=== PATIENT | female | born 1935 | race Caucasian/White ===

== ENCOUNTER 2017-01-09 14:54 | Inpatient (IN) | payer OTHER, MEDICARE ==
[~2017-01-09] VITALS: Ht 170.2 cm; Wt 87.5 kg
[~2017-01-09 14:54] MED LIST: ANASTROZOLE1 MG PO; BENICAR20 MG PO; COREG12.5 M1 PO; ELIQUIS5 MG PO; FUROSEMIDE40 M1 PO; GLIPIZIDE5 M1 PO; GLUCOPHAGE1000 M1 PO; LEVOXYL88 MCG PO; LIPITOR10 M1 PO
--- NOTE | 2017-01-09 15:00 | ED DYSPNEA/ASTHMA COMPLAINT ---
History of Present Illness General Chief Complaint: General Adult Stated Complaint: BIBA INCREASED WEAKNESS, DIFFICULTY BREATHING Source: patient, family Exam Limitations: no limitations Vital Signs & Intake/Output Vital Signs & Intake/Output Vital Signs Date Time Temp Pulse Resp B/P Pulse O2 O2 Flow FiO2 Ox Delivery Rate 01/11 2150 68 112/70 01/11 1625 97.4 70 20 102/70 99 Nasal 1.0L Cannula 01/11 1600 Nasal 2.0L Cannula 01/11 1404 Nasal 1.0L Cannula 01/11 1344 97.1 80 20 102/60 99 Nasal 1.0L Cannula 01/11 1023 69 104/60 01/11 0800 93 Nasal 1.0L Cannula 01/11 0800 97.0 69 17 102/50 96 Nasal 1.0L Cannula 01/11 0400 98 Nasal 1.0L Cannula 01/11 0000 97 Nasal 1.0L Cannula 01/11 0000 97.2 68 16 104/64 96 Nasal 1.0L Cannula ED Intake and Output 01/11 0000 01/10 1200 Intake Total 1140 360 Output Total 1100 1200 Balance 40 -840 Intake, IV 510 360 Intake, Oral 630 Number 0 Bowel Movements Output, Urine 1100 1200 Patient 264 lb Weight Allergies Coded Allergies: alendronate sodium (RASH 01/09/17) Reconcile Medications Apixaban (Eliquis) 5 MG TABLET 1 TAB PO BID A fibrillation (Reported) Atorvastatin Calcium (Lipitor) 10 MG TABLET 1 TAB PO DAILY CHOLESTEROL ( Reported) Calcium Carbonate/Vitamin D3 (Os-Uzair 500+D3 Caplet) 500 MG-200 TABLET 1 TAB PO DAILY SUPPLEMENT (Reported) Carvedilol (Coreg) 12.5 MG TABLET 1 TAB PO BID HEART/BP (Reported) Furosemide 40 MG TABLET 1 TAB PO BID DIURETIC (Reported) Levothyroxine Sodium (Levoxyl) 88 MCG TABLET 1 TAB PO DAILY AC THYROID ( Reported) Metformin HCl (Glucophage) 1,000 MG TABLET 1 TAB PO BID DM (Reported) Multivitamin (Multi-Day Vitamins) 1 EACH TABLET 1 TAB PO DAILY SUPPLEMENT ( Reported) Olmesartan Medoxomil (Benicar) 20 MG TABLET 1 TAB PO DAILY BP (Reported) Potassium Chloride 20 MEQ TAB.ER.PRT 1 TAB PO BID SUPPLEMENT (Reported) Triage Nurses Notes Reviewed? yes Onset: Gradual Duration: getting worse Timing: recent history Severity: moderate HPI: Patient is a 81-year-old female with a past medical history of type 2 diabetes, atrial fibrillation with current AICD placement, CHF, sleep apnea, hypertension, hyperlipidemia, renal insufficiency, cardiomyopathy, hypothyroidism, anemia, PE, DVT, breast cancer, obesity who presents emergency room with a one-week history of gradually worsening tired weakness fatigue fevers and chills and change in verbal medication. Patient denies any headache cough shortness of breath or pain jaw pain chest pain like swelling nausea vomiting abdominal pain hemoptysis Patient was brought in by ambulance from private residence ([facility]) Past History Travel History Traveled to [place] past 21 day No Medical History Any Pertinent Medical History? see below for history Other Medical Hx: type 2 diabetes, atrial fibrillation with current AICD placement, CHF, sleep apnea, hypertension, hyperlipidemia, renal insufficiency, cardiomyopathy, hypothyroidism, anemia, PE, DVT, breast cancer, obesity Pneumonia Vaccine: 07/23/06 Influenza Vaccine: 07/02/09 Surgical History Surgical History: non-contributory Psychosocial History Who do you live with Spouse What is your primary language Nigerien Family History Hx Contributory? No ([place]) Review of Systems Review of Systems Constitutional: Reports: see HPI, chills, malaise, weakness. EENTM: Reports: no symptoms. Respiratory: Reports: no symptoms. Cardiovascular: Reports: no symptoms. GI: Reports: no symptoms. Genitourinary: Reports: no symptoms. Musculoskeletal: Reports: no symptoms. Skin: Reports: no symptoms. Neurological/Psychological: Reports: no symptoms. Hematologic/Endocrine: Reports: no symptoms. Immunologic/Allergic: Reports: no symptoms. All Other Systems: Reviewed and Negative ([facility]) Physical Exam Physical Exam General Appearance: no apparent distress, alert, comfortable Respiratory: chest non-tender, no respiratory distress, quiet respiration, decreased breath sounds Comments: HEENT: Normal EENT exam, extraocular motion intact, no nystagmus. Pupils equally round and reactive to light and accommodation. Nose- CYANOTIC, LIPS CYANOTIC. External auditory canal and Tympanic membranes clear. Pharynx normal. No swelling or edema. Neck: Supple, no lymphadenopathy, normal range of motion without pain or tenderness Back:no CVA tenderness. NONTENDER Cardiovascular: Regular rate and rhythms no murmurs rubs or gallops, normal JVP Respiratory: Chest nontender. No respiratory distress.breath sounds clear to auscultation bilaterally Abdomen: Soft, nontender nondistended, no appreciable organomegaly. Normal bowel sounds. No ascites Extremity: Bilateral lower extremity edema, no calf tenderness to palpation, normal and equal pulses. FEET NOTED TO BE COLD, DERMATOMES INTACT, PEDAL PULSE PLUS 2 BRAWNY BROWN DISCOLORATION Neuro: Alert oriented x3, motor sensory normal, cranial nerves II through XII grossly intact. Skin: No appreciable rash on exposed skin, skin is warm and dry. Psych: Mood and affect is normal, memory and judgment is normal. Core Measures ACS in differential dx? No Severe Sepsis Present: Yes BC x2: Yes Lactic Acid x2: Yes IV ABX Broad Spectrum: Yes NS/LR Started: No (PT HAS HX OF CHF, LEG EDEMA) Septic Shock Present: No ([facility]) ED Sepsis Exam Date of Focused Sepsis Exam: 01/09/17 Time of Focused Sepsis Exam: 1832 Sepsis Cardiac Exam: Regular Rate/Rhythm Sepsis Resp Exam: CTA Sepsis Cap Refill Exam: <2 Sec Sepsis Peripheral Pulse Exam: Normal Sepsis Peripheral Pulse Location: Dorsalis Pedis Sepsis Skin Color Exam: Cyanotic Skin Temp/Moisture Exam: Cool/Dry ([facility]) Progress Differential Diagnosis: AMI, bronchitis, costochondritis, CHF, COPD, musculoskeletal pain, pericarditis, pulmonary embolism, pneumonia, pneumothorax, rib fracture, unstable angina, SEPSIS, SEVERE SEPSIS HYPOTHYROIDISM, PNA, ELECTROLYTE ABNORMALITY HYPOTHYROIDISM PE Plan of Care: Orders Procedure Date/time Status MAGNESIUM 01/12 0500 Active FIBRIN SPLIT PRODUCTS 01/12 0500 Active FIBRINOGEN LEVEL 01/12 0500 Active D-DIMER 01/12 0500 Active CBC WITHOUT DIFFERENTIAL 01/12 0500 Active BASIC ELECTROLYTES PLUS BUN&CR 01/12 0500 Active Consistent Carbohydrate 3 01/11 L Active Transfer Disposition 01/11 1547 Active Transfer patient to 01/11 1020 Active Gandhi, Insertion/Removal/Asses 01/11 0833 Active Fluoroscopic Eval Swallowing 01/11 UNK Complete OXYGEN SETUP (GEN) 01/11 UNK Complete Therapeutic Activities 01/11 UNK Complete Therapeutic Exercise 01/11 UNK Complete Transfer patient to 01/11 UNK Active Discontinue Telemetry/Monitor 01/11 UNK Active Current Medications Sig/Stefanie Start time Last Medication Dose Stop Time Status Admin Insulin Aspart 0 AT BEDTIME 01/10 2200 AC (NovoLOG) Laboratory Tests 01/11/17 0505: Anion Gap 8, Estimated GFR 48 L, Glucose 79, Calcium 9.8, Phosphorus 4.4, Magnesium 1.8, Total Bilirubin 0.5, AST 29, ALT 50, Albumin 3.4 L, PT 16.2 H, INR 1.55 H, Fibrinogen Activity 185 L, Fibrin Degrad Products >10 but < 40 ug/ ml H, D-Dimer 285 H, CBC w Diff MAN DIFF ORDERED, RBC 3.81 L, MCV 94.0, MCH 30.6, RDW 16.0 H, MPV 12.8 H, Gran % 67.6, Lymphocytes % 16.0 L, Monocytes % 15.4 H, Eosinophils % 0.7, Basophils % 0.3, Absolute Granulocytes 2.7, Segmented Neutrophils 71, Absolute Lymphocytes 0.6 L, Lymphocytes 13 L, Monocytes 15 H, Absolute Monocytes 0.6, Eosinophils 1, Absolute Eosinophils 0, Absolute Basophils 0, Nucleated RBCs 5 H, Platelet Estimate DECREASED, Polychromasia 1+, Hypochromic-Microcytic 1+, Poikilocytosis 1+, Basophilic Stippling SLIGHT, Ovalocytes 1+, Elliptocytes FEW, PUBS MCHC 32.6 L, Fld Total RBCs Counted 100 Initially patient has on physical exam findings no concern of neurological deficit or stroke NIH STROKE SCALE 0 Patient was alert and oriented 4 Patient did noted to have profound hypothermia which a bear hugger was immediately placed. Patient did have minimal improvement of temperature Patient initially was given broad-spectrum antibiotics There was significant hesitancy of IV fluid resuscitation for concerns of sepsis for consideration of patient's past medical history of CHF in which patient was given 1 L of fluid 500 an hour Patient had unremarkable ABG imaging urinalysis which there is no source of patient's hypothermia CT SCAN WAS RESULTED SHOWING CONCERN FOR PNA. (LUDMILA SANDRA,[facility]) Diagnostic Imaging: Viewed by Me: Radiology Read. Radiology Impression: no acute abnormality, no fracture Initial ED EK BPM VENTRICULAR PACED RHYTHM Prior EKG: unchanged Comments: PATIENT: KEHINDE BISHOP PRESENT AGE: 81 PATIENT ACCOUNT NO: [id number] : 34 LOCATION: ER ORDERING PHYSICIAN: [facility] SERVICE DATE: 01/09/17 EXAM TYPE: CAT - CT ABD & PELVIS W IV CONTRAST EXAMINATION: CT ABDOMEN AND PELVIS WITH CONTRAST CLINICAL INFORMATION: Abdominal pain. Hypoxia. COMPARISON: None. TECHNIQUE: Contiguous axial thin section helical images of the abdomen and pelvis were performed following the administration of 95 mL of intravenous Optiray 320. The data set was reformatted in the coronal and sagittal planes and reviewed on an independent workstation. DLP: 1292 mGy-cm. FINDINGS: There is right middle and lower lobe airspace disease concerning for pneumonia. The heart is enlarged. The liver is of normal size and diffuse decreased attenuation without focal lesions nor intrahepatic biliary ductal dilation. A normal gallbladder is identified. There is no wall thickening or discernible pericholecystic fluid. The spleen, pancreas, adrenal glands are unremarkable. Both kidneys are of normal size and attenuation without hydronephrosis or nephrolithiasis. Following the administration of IV contrast, prompt symmetric nephrograms are displayed. There is a vrzlf-bs-bljcacul amount of free fluid within the abdomen.. There is neither mesenteric nor retroperitoneal lymphadenopathy. An IVC filter is in place. There is sigmoid diverticulosis without evidence of diverticulitis. Otherwise, unremarkable unopacified loops of small and large bowel are identified. There is a ixkcr-vp-nnjnirro amount of pelvic free fluid. The urinary bladder is unremarkable. There is neither pelvic nor inguinal lymphadenopathy. Bone windows: There is a compression fracture at L5 with evidence of prior vertebroplasty. The lumbar vertebra are in normal alignment. There is a T6 vertebral compression fracture. IMPRESSION: Sigmoid diverticulosis without evidence of diverticulitis. Wbuxl-fk-fzlpxziw amount of free fluid within the abdomen and pelvis. Right middle and lower lobe groundglass opacification concerning for pneumonia. Recommendation is for a followup chest series to be obtained following treatment and/or resolution of symptoms to assure resolution of this appearance. DICTATED BY: SYBIL BURDICK MD DATE/TIME DICTATED:01/09/171931 DIRECTOR CARD:DELORIS DATE/TIME TRANSCRIBED:01/09/171931 PATIENT: KEHINDE BISHOP PRESENT AGE: 81 PATIENT ACCOUNT NO: [id number] : 34 LOCATION: [facility] ORDERING PHYSICIAN: [facility]DRA SERVICE DATE: 01/09/17 EXAM TYPE: CAT - CTA CHEST-PULMONARY EMBOLISM EXAMINATION: CT PULMONARY EMBOLISM STUDY CLINICAL INFORMATION: Hypoxia. COMPARISON: 01/20/2015.. TECHNIQUE: Contiguous helical images of the chest were obtained following the administration of IV contrast. Multiplanar reconstructions were performed. MIPS were obtained and reviewed. DLP: 1794 mGy-cm. CONTRAST: 95 mL of Optiray 350 were administered without incident. FINDINGS: The heart is enlarged. There is a small pericardial effusion within the superior pericardial recess. The great vessels are unremarkable. Specifically, there are no pulmonary arterial filling defects. There are no chest wall masses. There is patchy groundglass opacification within the right middle lobe. There is also patchy right lower lobe airspace disease. The upper abdomen is evaluated on the same day abdominal and pelvic CT. There is a midthoracic spine which 8 vertebral body compression fracture. IMPRESSION: No CT evidence for pulmonary embolism. Cardiomegaly without evidence of vascular congestion. Right middle and lower lobe groundglass opacification concerning for developing pneumonia. Recommendation is for a followup chest series to be obtained following treatment and/or resolution of symptoms to assure resolution of this appearance. Please refer to the same day abdominal and pelvic CT report for evaluation of the abdomen. PATIENT: KEHINDE BISHOP PRESENT AGE: 81 PATIENT ACCOUNT NO: [id number] : 34 LOCATION: ER ORDERING PHYSICIAN: [facility]DRA SERVICE DATE: 01/09/17 EXAM TYPE: RAD - XRY-PORTABLE CHEST XRAY EXAMINATION: XR PORTABLE CHEST CLINICAL INFORMATION: Change in mental status. COMPARISON: Chest radiograph dated 01/20/2015. TECHNIQUE: Portable AP view of the chest was obtained. FINDINGS: There are right and left chest wall cardiac generators. Associated leads appear stable in position. There is moderate cardiomegaly, unchanged. There is uncoiling of the thoracic aorta. There is no pneumonia, pneumothorax or large pleural effusion. IMPRESSION: Moderate cardiomegaly. No pneumonia, pneumothorax or pleural effusion. DICTATED BY: OLEG WAGGONER MD DATE/TIME DICTATED:01/09/171552 DIRECTOR CARD:DELORIS PATIENT: KEHINDE BISHOP PRESENT AGE: 81 PATIENT ACCOUNT NO: [id number] : 34 LOCATION: ER ORDERING PHYSICIAN: [facility] SERVICE DATE: 01/09/17160 EXAM TYPE: CAT - CT HEAD WO IV CONTRAST EXAMINATION: CT HEAD WITHOUT CONTRAST CLINICAL INFORMATION: Altered mental status, slurred speech COMPARISON: None TECHNIQUE: Contiguous axial imaging was performed from the skull base to vertex without intravenous administration of contrast. No midline shift. There is no mass effect. No hemorrhage. Basal cisterns appear patent. The posterior fossa risk grossly within normal limits. No extra-axial collection. There is some probable scattered areas of white matter ischemic change. Some limitation from motion here. IMPRESSION: Limitation from motion. Given this there is no midline shift or mass effect or hemorrhage. Some atrophy impression probable chronic White matter ischemic changes. Vascular calcifications are noted.. If further evaluation is warranted recommend diffusion MR DICTATED BY: LULA PALMA MD ([place] [place]) Departure Departure Disposition: STILL A PATIENT Condition: Critical Clinical Impression Primary Impression: Sepsis Secondary Impressions: Hypothermia, Pneumonia Referrals: Salma MENDOSA MD (PCP/Family) Departure Forms: Customer Survey General Discharge Information Admission Note Spoke With: CURRY DELAROSA MD Documentation of Exam: Documentation of any treatments & extenuating circumstances including Concerns Regarding Discharge (functional status, medication knowledge or non-compliance, living conditions, etc.) that warrant an admission rather than observation: [ Patient requires ICU admission for concerns of hypothermia and sepsis. Patient requires IV antibiotics broad-spectrum, repeat labs, blood culture and urine culture currently pending. Outpatient treatment at this time due to critical findings would be medically harmful] ([facility]) PA/MANAGER OPERATIONS AND PROCUREMENT Co-Sign Statement Statement: ED Attending supervision documentation- [X] I saw and evaluated the patient. I have also reviewed all the pertinent lab results and diagnostic results. I agree with the findings and the plan of care as documented in the PA's/MANAGER OPERATIONS AND PROCUREMENT's documentation. [X] I have reviewed the ED Record and agree with the PA's/MANAGER OPERATIONS AND PROCUREMENT's documentation. [] Additions or exceptions (if any) to the PAs/MANAGER OPERATIONS AND PROCUREMENT's note and plan are summarized below: [Patient lives at home alone. Patient presents with increasing weakness to the point that she could not get off of her toilet today. Patient states that she has been gaining weight without wanting to recently. Patient denies any dyspnea on exertion or orthopnea. There is no chest pain or palpitations. There is no anorexia. No nausea or vomiting. Patient's son brought her in for evaluation. Upon presentation to the emergency department patient rectal temp was 88. Patient was placed on the bear hugger. Patient lips and nose appear cyanotic. No evidence of cellulitis. Her lungs are clear to auscultation. Cardiac exam shows no murmur. Her abdomen is soft and nontender with normal bowel sounds. Patient will be admitted to intensive care unit for presumed sepsis.] (ELIZABETH ANSARI,CHEPE [place]aly) Critical Care Note Critical Care Note Critical Care Time: 30-74 min ([facility]UD[facility]ILA [facility]DRA,[place]) ARTERIAL BLOOD GAS (GEN) 01/09 1610 Complete SERUM OSMOLALITY 01/09 1600 Complete MAGNESIUM 01/09 1600 Complete GLYCOSYLATED HGB 01/09 1600 Complete CORTISOL PM 01/09 1600 Complete CREATINE PHOSPHOKINASE 01/09 1600 Complete B-TYPE NATRIURETIC PEP (BNP) 01/09 1600 Complete URINE OSMOLALITY 01/09 1537 Complete URINE LYTES, SPOT 01/09 1537 Complete Telemetry/Sash Finisher 01/09 1528 Active CULTURE,URINE 01/09 1528 Active STREP PNEUMO URINARY ANTIGEN 01/09 1528 Complete LEGIONELLA URINARY ANTIGEN 01/09 1528 Complete BLOOD CULTURE 01/09 1528 Active URINALYSIS 01/09 1528 Complete THYROID STIMULATING HORMONE 01/09 1528 Complete TROPONIN LEVEL 01/09 1528 Complete T3 UPTAKE (THYROXINE BIND CAP) 01/09 1528 Complete AMMONIA 01/09 1528 Complete LACTIC ACID 01/09 1528 Complete FREE T4 01/09 1528 Complete COMPREHENSIVE METABOLIC PANEL 01/09 1528 Complete CBC WITHOUT DIFFERENTIAL 01/09 1528 Complete ACETONE 01/09 1528 Complete EKG 01/09 1455 Active OXYGEN SETUP CHG 01/09 UNK Complete OXYGEN 01/09 UNK Complete OXYGEN TRANSPORT 01/09 UNK Complete Saline Lock 01/09 UNK Active Pathway - chart 01/09 UNK Active House Staff 01/09 UNK Active Lab Add-on Test 01/09 UNK Active Weight 01/09 UNK Active VTE Mechanical Prophylaxis 01/09 UNK Active Vital Signs 01/09 UNK Active Telemetry/Sash Finisher 01/09 UNK Complete Precautions 01/09 UNK Active Intake & Output 01/09 UNK Active FingerStick- Glucose 01/09 UNK Active PHYSICIAN CONSULT 01/09 UNK Active CASE MANAGEMENT CONSULT 01/09 UNK Active Current Medications Sig/Stefanie Start time Last Medication Dose Stop Time Status Admin Atorvastatin Calcium 10 MG 1700 01/10 1700 AC (Lipitor) Laboratory Tests 01/10/17 1201: Sodium Pending, Potassium Pending, Chloride Pending, Carbon Dioxide Pending, Anion Gap Pending, BUN Pending, Creatinine Pending, Glucose Pending, Calcium Pending, Phosphorus Pending, Magnesium Pending, Total Bilirubin Pending, AST Pending, ALT Pending, Albumin Pending 01/10/17 0540: CBC w Diff MAN DIFF ORDERED, RBC 3.69 L, MCV 94.3, MCH 30.8, RDW 15.4 H, MPV 11.4 H, Gran % 77.0 H, Lymphocytes % 8.3 L, Monocytes % 13.6 H, Eosinophils % 0.5, Basophils % 0.6, Absolute Granulocytes 3.1, Segmented Neutrophils 78 H, Absolute Lymphocytes 0.3 L, Lymphocytes 10 L, Monocytes 12 H, Absolute Monocytes 0.5, Absolute Eosinophils 0, Absolute Basophils 0, Nucleated RBCs 3 H , Platelet Estimate DECREASED, Polychromasia 1+, Hypochromic-Microcytic 1+, Poikilocytosis 1+, Basophilic Stippling 1+, Ovalocytes 1+, Elliptocytes FEW, PUBS MCHC 32.6 L, Fld Total RBCs Counted 100 01/10/17 0450: Magnesium 1.6, Troponin I 0.03, Triglycerides 65, Cholesterol 130, LDL Cholesterol, Calc 34 L, HDL Cholesterol 83 H, Cholesterol/HDL Ratio 2, Cortisol AM Sample 27.3 H, PT 15.6 H, INR 1.49 H, Fibrinogen Activity 182 L, Fibrin Degrad Products >10 but < 40 ug/ml H, D-Dimer 507 H 01/09/17 2240: Anion Gap 10, Estimated GFR 48 L, Glucose 125 H, Calcium 10.6 H, Phosphorus 4.1, Magnesium 1.3 L, Total Bilirubin 0.7, AST 34, ALT 55 H, Troponin I 0.03, Albumin 3.8, PT 16.6 H, INR 1.59 H, APTT 38 H, Fibrinogen Activity 186 L, Fibrin Degrad Products >10 but < 40 ug/ml H, D-Dimer 540 H, CBC w Diff NO MAN DIFF REQ, RBC 3.85 L, MCV 93.7, MCH 30.3, RDW 16.3 H, MPV 12.2 H, Gran % 83.6 H, Lymphocytes % 6.9 L, Monocytes % 9.1, Eosinophils % 0.1, Basophils % 0.3, Absolute Granulocytes 3.8, Absolute Lymphocytes 0.3 L, Absolute Monocytes 0.4, Absolute Eosinophils 0, Absolute Basophils 0, PUBS MCHC 32.3 L 01/09/171957: Lactic Acid 1.5 01/09/17 1615: pH 7.37, pCO2 40, pO2 49 *L, HCO3 25, ABG O2 Sat (Measured) 92.0 L, P-50 (Temp Corrected) Y, Carboxyhemoglobin 0.5 L, O2 Concentration % R/A, Temperature 88.3 L, Phlebotomy Draw Site RIGHT RADIAL 01/09/17 1600: Anion Gap 10, Estimated GFR 48 L, BUN/Creatinine Ratio 41.8 H, Glucose 142 H, Hemoglobin A1c 6.0 H, Serum Osmolality 290, Lactic Acid 1.9, Calcium 10.9 H, Magnesium 1.2 L, Total Bilirubin 0.7, AST 39 H, ALT 58 H, Alkaline Phosphatase 112, Ammonia 11, Creatine Kinase 56, Troponin I 0.02, Pro-B- Natriuretic Pept 2220 H, Total Protein 6.6, Albumin 4.0, Globulin 2.6, Albumin/ Globulin Ratio 1.5, TSH 2.490, Free T4 1.89, Thyroxine Binding Indx 45.9 H, Cortisol PM Sample 30.9 H, CBC w Diff NO MAN DIFF REQ, RBC 4.11 L, MCV 92.1, MCH 31.0, RDW 15.8 H, MPV 13.0 H, Gran % 86.6 H, Lymphocytes % 5.9 L, Monocytes % 7.4, Eosinophils % 0, Basophils % 0.1, Absolute Granulocytes 4.0, Absolute Lymphocytes 0.3 L, Absolute Monocytes 0.3, Absolute Eosinophils 0, Absolute Basophils 0, PUBS MCHC 33.7, Acetone Level NEGATIVE 01/09/17 153: Urine Color YEL, Urine Clarity CLEAR, Urine pH 6.0, Ur Specific [place] 1.015, Urine Protein NEG, Urine Ketones NEG, Urine Nitrite NEG, Urine Bilirubin NEG, Urine Urobilinogen 0.2, Ur Leukocyte Esterase NEG, Ur Microscopic EXAM NOT REQUIRED, Urine Hemoglobin NEG, Urine Glucose NEG 01/09/17 153: Urine Osmolality 348, Ur Random Creatinine 54.9, Ur Random Sodium 16 L, Ur Random Potassium 62.6, Fraction Sodium Excret 3.0 H 01/09/17 1531: Magnesium Cancelled, Xgz-R-Dvyyaxgstym Pept Cancelled Microbiology 03/20 2240 UPPER RESP: Surveillance Culture - RECD 01/10 2240 GI: Surveillance Culture - RECD 01/10 2024 NASOPHARYN: Influenza Virus A & B Rapid Smear - COLB 01/09 2014 LOWER RESP: Respiratory Culture - COLB 01/09 2014 LOWER RESP: Gram Stain - COLB 01/09 2014 STOOL: Stool Culture - COLB 01/09 2014 BLOOD: Blood Culture - CAN Cancelled: Cancelled via OE: Per MD Decision 01/09 1608 BLOOD: Blood Culture - RES 01/09 1600 BLOOD: Blood Culture - RES 01/09 1537 URINE ROUT: Urine Culture - RES 01/09 1528 URINE ROUT: Legionella Antigen - COMP 01/09 152 URINE ROUT: Streptococcus pneumoniae Antigen (M - COMP Initially patient has on physical exam findings no concern of neurological deficit or stroke NIH STROKE SCALE 0 Patient was alert and oriented 4 Patient did noted to have profound hypothermia which a bear hugger was immediately placed. Patient did have minimal improvement of temperature Patient initially was given broad-spectrum antibiotics There was significant hesitancy of IV fluid resuscitation for concerns of sepsis for consideration of patient's past medical history of CHF in which patient was given 1 L of fluid 500 an hour Patient had unremarkable ABG imaging urinalysis which there is no source of patient's hypothermia CT SCAN WAS RESULTED SHOWING CONCERN FOR PNA. ([facility]) Departure Departure Disposition: STILL A PATIENT Condition: Critical Clinical Impression Primary Impression: Sepsis Secondary Impressions: Hypothermia, Pneumonia Referrals: Salma MENDOSA MD (PCP/Family) Departure Forms: Customer Survey General Discharge Information Admission Note Spoke With: CURRY DELAROSA MD Documentation of Exam: Documentation of any treatments & extenuating circumstances including Concerns Regarding Discharge (functional status, medication knowledge or non-compliance, living conditions, etc.) that warrant an admission rather than observation: [ Patient requires ICU admission for concerns of hypothermia and sepsis. Patient requires IV antibiotics broad-spectrum, repeat labs, blood culture and urine culture currently pending. Outpatient treatment at this time due to critical findings would be medically harmful] ([place]) PA/MANAGER OPERATIONS AND PROCUREMENT Co-Sign Statement Statement: ED Attending supervision documentation- [X] I saw and evaluated the patient. I have also reviewed all the pertinent lab results and diagnostic results. I agree with the findings and the plan of care as documented in the PA's/MANAGER OPERATIONS AND PROCUREMENT's documentation. [X] I have reviewed the ED Record and agree with the PA's/MANAGER OPERATIONS AND PROCUREMENT's documentation. [] Additions or exceptions (if any) to the PAs/MANAGER OPERATIONS AND PROCUREMENT's note and plan are summarized below: [Patient lives at home alone. Patient presents with increasing weakness to the point that she could not get off of her toilet today. Patient states that she has been gaining weight without wanting to recently. Patient denies any dyspnea on exertion or orthopnea. There is no chest pain or palpitations. There is no anorexia. No nausea or vomiting. Patient's son brought her in for evaluation. Upon presentation to the emergency department patient rectal temp was 88. Patient was placed on the bear hugger. Patient lips and nose appear cyanotic. No evidence of cellulitis. Her lungs are clear to auscultation. Cardiac exam shows no murmur. Her abdomen is soft and nontender with normal bowel sounds. Patient will be admitted to intensive care unit for presumed sepsis.] (ELIZABETH ANSARI,CHEPE Healy) Critical Care Note Critical Care Note Critical Care Time: 30-74 min ([place])
--- NOTE | 2017-01-09 15:22 | NUR ---
PT BIBA FROM HOME FOR INCREASED WEAKNESS, INCREASED WEIGHT GAIN OF 30 POUNDS OVER THE LAST FEW DAYS. PT ARRIVES WITH POOR CIRCULATION, ESPECIALLY TO FINGERS, TOES AND TIP OF NOSE AND LIPS NOTED TO HAVE BLUE TINGE (?CHRONIC PER EMS.) NO ACUTE DISTRESS NOTED. PT A/O X 4. 100% ON RA. UNABLE TO OBTAIN TEMPERATURE VIA TYMPANIC, TEMPORAL ARTERY OR RECTAL THERMOMETERS. PT PLACED ON BEAR HUGGER IMMEDIATELY.
--- NOTE | 2017-01-09 15:30 | NUR ---
TEMPERATURE PROBE LOZANO PLACED AT THIS TIME. PT PLACED ON BEAR HUGGER. TEMPERATURE 84.5 AT THIS TIME. LOZANO OUTPUT 200CC DARK URINE AT THIS TIME. SPECIMEN SENT TO LAB
--- NOTE | 2017-01-09 15:40 | NUR ---
XRAY AT BEDSIDE. PT REMAINS ALERT AND ORIENTED BUT SLOW TO RESPOND TO QUESTIONS, PT ANSWERES QUESTIONS CORRECTLY. SON AT BEDSIDE. PER SON, PT HAS BEEN GETTING PROGRESSIVELY WEAK OVER THE PAST FEW WEEKS. STATES SHE TAKES LASIX DAILY BUT HAS BEEN HAVING TROUBLE GETTING UP FROM THE TOILET. PER SON PT HAS HAVE SIGNIFICANT WEIGHT GAIN OVER THE LAST FEW WEEKS. PER SON MOTHER HAS HAD LOOSE STOOL FOR "A COUPLE DAYS" PT DENIES PAIN ANYWHERE. DENIES SOB. RA SATS 96%. PACED RHYTHM ON MONITOR. AT BEDSIDE FOR [facility]INO
[2017-01-09] MEDS ORDERED: BENICAR20 M1 PO (15:49)
[2017-01-09] MEDS ORDERED: OS-CAL 500+D31 EAC1 PO (15:50)
[2017-01-09] MEDS ORDERED: GLIPIZIDE5 M2 PO (15:52)
[2017-01-09] MEDS ORDERED: MULTI-DAY VITA1 EACH PO (15:53)
[2017-01-09] MEDS ORDERED: POTASSIUM CHLO20 ME2 PO (15:54)
--- NOTE | 2017-01-09 15:59 | RADIOLOGY REPORT ---
EXAMINATION: XR PORTABLE CHEST CLINICAL INFORMATION: Change in mental status. COMPARISON: Chest radiograph dated 01/20/2015. TECHNIQUE: Portable AP view of the chest was obtained. FINDINGS: There are right and left chest wall cardiac generators. Associated leads appear stable in position. There is moderate cardiomegaly, unchanged. There is uncoiling of the thoracic aorta. There is no pneumonia, pneumothorax or large pleural effusion. IMPRESSION: Moderate cardiomegaly. No pneumonia, pneumothorax or pleural effusion.
--- NOTE | 2017-01-09 16:08 | NUR ---
LAB DRAWN AND SENT
--- NOTE | 2017-01-09 16:16 | NUR ---
RESP AT BEDSIDE FOR ABG
[2017-01-09 16:21] LABS: ABSOLUTE BASOPHIL COUNT 0 /CUMM (0.0-0.2); ABSOLUTE EOSINOPHIL COUNT 0 /CUMM (0.0-0.7); ABSOLUTE LYMPH COUNT 0.3 /CUMM (1.2-3.4); ABSOLUTE MONOCYTE COUNT 0.3 /CUMM (0.10-0.60); BASOPHIL % 0.1 % (0.0-2.0); EOSINOPHIL % 0 % (0-5); HEMATOCRIT 37.9 % (37-47); MEAN CORPUSCULAR HGB CONC 33.7 G/DL (33.0-37.0); MEAN CORPUSCULAR VOLUME 92.1 FL (81.0-99.0); RBC DISTRIBUTION WIDTH 15.8 % (11.5-14.5); RED BLOOD CELL CT 4.11 /CUMM (4.20-5.40); WHITE BLOOD CELL COUNT 4.6 /CUMM (4.8-10.8)
[2017-01-09 16:28] LABS: GRANULOCYTE % 86.6 % (42.2-75.2); PLATELET COUNT 58 /CUMM (130-400)
--- NOTE | 2017-01-09 16:32 | NUR ---
IV UNASYN INFUSING PER ODER AT THIS TIME.
--- NOTE | 2017-01-09 16:50 | NUR ---
PT TO CT SCAN AT THIS TIME.
--- NOTE | 2017-01-09 17:10 | NUR ---
PT BACK FROM FROM CT SCAN AT THIS TIME. PT PLACED BACK ON MONITOR. TEMP 89.1 AT THIS TIME.
--- NOTE | 2017-01-09 17:22 | CT SCAN REPORT ---
EXAMINATION: CT HEAD WITHOUT CONTRAST CLINICAL INFORMATION: Altered mental status, slurred speech COMPARISON: None TECHNIQUE: Contiguous axial imaging was performed from the skull base to vertex without intravenous administration of contrast. No midline shift. There is no mass effect. No hemorrhage. Basal cisterns appear patent. The posterior fossa risk grossly within normal limits. No extra-axial collection. There is some probable scattered areas of white matter ischemic change. Some limitation from motion here. IMPRESSION: Limitation from motion. Given this there is no midline shift or mass effect or hemorrhage. Some atrophy impression probable chronic White matter ischemic changes. Vascular calcifications are noted.. If further evaluation is warranted recommend diffusion MR
--- NOTE | 2017-01-09 18:05 | NUR ---
PT RESTING ON STRECHER, REMAINS ON BEAR HUGGER AT THIS TIME. TEMP 90.0 AT THIS TIME VIA LOZANO PROBE. PT REMAINS ALERT AND ORIENTED. SON REMAINS AT BEDSIDE.
--- NOTE | 2017-01-09 18:28 | NUR ---
LAB DRAWN AND SENT.
--- NOTE | 2017-01-09 18:53 | NUR ---
PT TO AND FROM CT SCAN AT THIS TIME WITH THIS RN. PT ARRIVES BACK IN ROOM ADN PALCED ON MONITOR. PT REMAINS ALERT AND ORIENTED X3. TEMP 90.7 AT THIS TIME.
--- NOTE | 2017-01-09 19:05 | NUR ---
ICU RESIDENTS IN ROOM FOR EVAL
--- NOTE | 2017-01-09 19:30 | NUR ---
HOUSE STAFF AT BEDSIDE
--- NOTE | 2017-01-09 19:35 | CT SCAN REPORT ---
EXAMINATION: CT PULMONARY EMBOLISM STUDY CLINICAL INFORMATION: Hypoxia. COMPARISON: 01/20/2015.. TECHNIQUE: Contiguous helical images of the chest were obtained following the administration of IV contrast. Multiplanar reconstructions were performed. MIPS were obtained and reviewed. DLP: 1794 mGy-cm. CONTRAST: 95 mL of Optiray 350 were administered without incident. FINDINGS: The heart is enlarged. There is a small pericardial effusion within the superior pericardial recess. The great vessels are unremarkable. Specifically, there are no pulmonary arterial filling defects. There are no chest wall masses. There is patchy groundglass opacification within the right middle lobe. There is also patchy right lower lobe airspace disease. The upper abdomen is evaluated on the same day abdominal and pelvic CT. There is a midthoracic spine which 8 vertebral body compression fracture. IMPRESSION: No CT evidence for pulmonary embolism. Cardiomegaly without evidence of vascular congestion. Right middle and lower lobe groundglass opacification concerning for developing pneumonia. Recommendation is for a followup chest series to be obtained following treatment and/or resolution of symptoms to assure resolution of this appearance. Please refer to the same day abdominal and pelvic CT report for evaluation of the abdomen.
--- NOTE | 2017-01-09 19:38 | CT SCAN REPORT ---
EXAMINATION: CT ABDOMEN AND PELVIS WITH CONTRAST CLINICAL INFORMATION: Abdominal pain. Hypoxia. COMPARISON: None. TECHNIQUE: Contiguous axial thin section helical images of the abdomen and pelvis were performed following the administration of 95 mL of intravenous Optiray 320. The data set was reformatted in the coronal and sagittal planes and reviewed on an independent workstation. DLP: 1292 mGy-cm. FINDINGS: There is right middle and lower lobe airspace disease concerning for pneumonia. The heart is enlarged. The liver is of normal size and diffuse decreased attenuation without focal lesions nor intrahepatic biliary ductal dilation. A normal gallbladder is identified. There is no wall thickening or discernible pericholecystic fluid. The spleen, pancreas, adrenal glands are unremarkable. Both kidneys are of normal size and attenuation without hydronephrosis or nephrolithiasis. Following the administration of IV contrast, prompt symmetric nephrograms are displayed. There is a [id number]-[id number] amount of free fluid within the abdomen.. There is neither mesenteric nor retroperitoneal lymphadenopathy. An IVC filter is in place. There is sigmoid diverticulosis without evidence of diverticulitis. Otherwise, unremarkable unopacified loops of small and large bowel are identified. There is a gbjiz-be-kfkkfomw amount of pelvic free fluid. The urinary bladder is unremarkable. There is neither pelvic nor inguinal lymphadenopathy. Bone windows: There is a compression fracture at L5 with evidence of prior vertebroplasty. The lumbar vertebra are in normal alignment. There is a T6 vertebral compression fracture. IMPRESSION: Sigmoid diverticulosis without evidence of diverticulitis. Jabrq-dj-jozmekbq amount of free fluid within the abdomen and pelvis. Right middle and lower lobe groundglass opacification concerning for pneumonia. Recommendation is for a followup chest series to be obtained following treatment and/or resolution of symptoms to assure resolution of this appearance.
--- NOTE | 2017-01-09 20:00 | NUR ---
PT A/O X4. RESP UNLABORED. JULIENNE CROWE CONTINUES ON PT. PT REPOSITIONED. FAMILY AT BEDSIDE. PT AWARE OF PLAN OF CARE
--- NOTE | 2017-01-09 20:03 | History & Physical ---
ALTAGRACIA ANDRADE 01/09/172001: General Information and HPI MD Statement: I have seen and personally examined KEHINDE BISHOP and documented this H&P. The patient is a 81 year old F who presented with a patient stated chief complaint of [hypothermia]. Source of Information: patient, old records Exam Limitations: no limitations History of Present Illness: This is a 81-year-old female with past medical history of atrial fibrillation on Eliquis, hypertension, hyperlipidemia, type 2 diabetes mellitus, status post AICD (automatic cardioverter/defibrillator), CHF, obstructive sleep apnea on CPAP, cardiomyopathy, hypothyroidism, previous pulmonary embolism and DVT s/p ivc filter, remote history of breast cancer, obesity, arthritis came in today from home with chief complaint of increased weakness and difficulty breathing. Apparently the patient was doing fine until one week prior to admission she was not feeling herself, had worsening weakness and fatigue along with cough, shortness of breath, worsening bilateral lower extremity edema. She also notes that one week back she was at a gathering in [place] that was in her honor after which she has also been experiencing loose watery motions about 4-5 daily without any blood. She also complains of mild abdominal pain on and off. She says that since today morning her weakness was so bad that she could not get up from the bed and go to the restroom. When she made it to the restroom it was difficult for her to get up from the toilet seat secondary to weakness. She denied any fall, syncope, dizziness. She follows up with as her primary care and had seen him 7 to 10 days ago, when it was noted that her bilateral lower extremity edema and overall swelling was increased, therefore her Lasix dosage was increased to twice a day on Monday and Monday (40 mg Od to BID) and she was instructed to stop eating salt, potassium was also increased and glipizide was discontinued. However Ms. Bishop continued to have worsening bilateral lower extremity swelling and also seems to have a puffy face. She also noted that she was having cough and was producing some sputum which she was not able to bring up, and she felt like she was having dripping down her throat and occasional choking secondary to sputum. She reports that she doesnt take her lasix when she goes to scient[employer] ( weekyl or biweekly) She denied any chest pain, fever, headache, speech difficulties, nausea, vomiting, sinus tenderness, burning in urine, recent fall. Allergies/Medications Allergies: Coded Allergies: alendronate sodium (RASH 01/09/17) Home Med list Apixaban (Eliquis) 5 MG TABLET 1 TAB PO BID A fibrillation (Reported) Atorvastatin Calcium (Lipitor) 10 MG TABLET 1 TAB PO DAILY CHOLESTEROL ( Reported) Calcium Carbonate/Vitamin D3 (Os-Uzair 500+D3 Caplet) 500 MG-200 TABLET 1 TAB PO DAILY SUPPLEMENT (Reported) Carvedilol (Coreg) 12.5 MG TABLET 1 TAB PO BID HEART/BP (Reported) Furosemide 40 MG TABLET 1 TAB PO BID DIURETIC (Reported) Levothyroxine Sodium (Levoxyl) 88 MCG TABLET 1 TAB PO DAILY AC THYROID ( Reported) Metformin HCl (Glucophage) 1,000 MG TABLET 1 TAB PO BID DM (Reported) Multivitamin (Multi-Day Vitamins) 1 EACH TABLET 1 TAB PO DAILY SUPPLEMENT ( Reported) Olmesartan Medoxomil (Benicar) 20 MG TABLET 1 TAB PO DAILY BP (Reported) Potassium Chloride 20 MEQ TAB.ER.PRT 1 TAB PO BID SUPPLEMENT (Reported) Compliance With Home Meds: FAIR Past History Travel History Traveled to [place] past 21 day No Medical History Neurological: NONE EENT: NONE Cardiovascular: AFIB, hypertension, hyperlipidemia, AICD CARDIOMYOPATHY Respiratory: CHF PULMONARY EMBOLISM Gastrointestinal: NONE Hepatic: NONE Renal: NONE Musculoskeletal: NONE Psychiatric: NONE Endocrine: diabetes, HYPOTHYROIDISM Blood Disorders: anemia Cancer(s): BREAST CA Other Medical Hx: type 2 diabetes, atrial fibrillation with current AICD placement, CHF, sleep apnea, hypertension, hyperlipidemia, renal insufficiency, cardiomyopathy, hypothyroidism, anemia, PE, DVT, breast cancer, obesity Pneumonia Vaccine: 07/23/06 Influenza Vaccine: 07/02/09 Surgical History Surgical History: hysterectomy, hysterctomy with bilateral oppherectomy ECHO Results (as available) Date of last Echo 09/27/06 EF% 35 Past Family/Social History Psychosocial History Where do you live? Home Who Do You Live With? self ETOH Use: denies use Illicit Drug Use: denies illicit drug use Living Will? yes Power of [place] Ne[employer] Whipper/HCP? yes Functional Ability ADLs Independent: dressing, eating, toileting, bathing. Ambulation: walker, and wheelchair IADLs Independent: shopping, housework, finances, food prep, telephone, medication admin. Review of Systems Review of Systems Constitutional: Reports: malaise, weakness. Denies: chills, diaphoresis, fever, unexplained weight loss. EENTM: Reports: nasal congestion, throat pain. Denies: blurred vision, double vision, visual changes, eye pain, eye drainage, eye tearing, nasal pain. Cardiovascular: Reports: edema, orthopena, peripheral edema. Denies: chest pain, palpitations, syncope. Respiratory: Reports: cough, short of breath, sputum production. Denies: hemoptysis, orthopnea, stridor, wheezing. GI: Reports: abdominal pain, diarrhea, changes in stool. Denies: bloating, constipation, distention, bowel incontinence, melena, nausea, bloody stool, vomiting, steatorrhea. Genitourinary: Denies: discharge, dysuria, frequency, hematuria, hesitation. Musculoskeletal: Denies: back pain, gout, joint pain, joint swelling, muscle pain, muscle stiffness, neck pain. Skin: Reports: change in skin color, dryness, erythema. Denies: cysts, jaundice, lesions, lymphangitis, lumps, moles, rash. Neurological/Psychological: Denies: anxiety, ataxia, cognitive dysfunction, confusion, depressed, headache. Hematologic/Endocrine: Denies: bruising, bleeding, polyuria, polydipsia. Immunologic/Allergic: Reports: no symptoms. All Other Systems: Reviewed and Negative Exam & Diagnostic Data Last 24 Hrs of Vital Signs/I&O Vital Signs Date Time Temp Pulse Resp B/P Pulse O2 O2 Flow FiO2 Ox Delivery Rate 01/10 2000 91.4 69 20 126/68 94 Room Air 01/09 1806 90.0 01/09 1728 89.2 70 20 134/83 98 Nasal 2.0L Cannula 01/09 1631 88.5 69 18 110/62 96 Nasal 2.0L Cannula 01/09 1618 88.3 01/09 1559 88.3 69 18 95 Room Air 01/09 1530 96 Nasal 2.0L Cannula 01/09 1522 69 20 110/68 100 Room Air Room Air Physical Exam General Appearance Alert, Oriented X3, Cooperative, Mild Distress Skin b/l lower leg jeronimo reddish to maroonish discoloration, changes consistent with stasis dermatitis, shinny skin HEENT Atraumatic, PERRLA, EOMI Neck Supple, jvd + Lymphatic no lad Cardiovascular Normal S1, Normal S2, systolic murmur grade 4/6 , best heard in left sternal border and also heard in apex Lungs Normal Air Movement, basal crackles right > left Abdomen Normal Bowel Sounds, Soft, No Tenderness Neurological Normal Speech, Strength at 5/5 X4 Ext, Normal Tone, Sensation Intact, Cranial Nerves 3-12 NL, Reflexes 2+ Extremities b/l lower extremity edema present, dark reddish to maroonish discoloration of b/l lower extremtyi in the sokc area, shiny skin, loss of hair Vascular Normal Pulses, difficult to palpate in LE, radial pulse palpable Last 24 Hrs of Labs/Yordan: Laboratory Tests 01/09/178: Lactic Acid 1.5 01/09/17 1615: pH 7.37, pCO2 40, pO2 49 *L, HCO3 25, ABG O2 Sat (Measured) 92.0 L, P-50 (Temp Corrected) Y, Carboxyhemoglobin 0.5 L, O2 Concentration % R/A, Temperature 88.3 L, Phlebotomy Draw Site RIGHT RADIAL 01/09/17 1600: Anion Gap 10, Estimated GFR 48 L, BUN/Creatinine Ratio 41.8 H, Glucose 142 H, Lactic Acid 1.9, Calcium 10.9 H, Magnesium 1.2 L, Total Bilirubin 0.7, AST 39 H, ALT 58 H, Alkaline Phosphatase 112, Ammonia 11, Creatine Kinase Pending, Troponin I 0.02, Nqg-Q-Rnctfimwgow Pept 2220 H, Total Protein 6.6, Albumin 4.0, Globulin 2.6, Albumin/Globulin Ratio 1.5, TSH 2.490, Free T4 1.89, Thyroxine Binding Indx 45.9 H, CBC w Diff NO MAN DIFF REQ, RBC 4.11 L, MCV 92.1, MCH 31.0, RDW 15.8 H, MPV 13.0 H, Gran % 86.6 H, Lymphocytes % 5.9 L, Monocytes % 7.4, Eosinophils % 0, Basophils % 0.1, Absolute Granulocytes 4.0, Absolute Lymphocytes 0.3 L, Absolute Monocytes 0.3, Absolute Eosinophils 0, Absolute Basophils 0, PUBS MCHC 33.7, Acetone Level NEGATIVE 01/09/17 1537: Urine Color YEL, Urine Clarity CLEAR, Urine pH 6.0, Ur Specific [place] 1.015, Urine Protein NEG, Urine Ketones NEG, Urine Nitrite NEG, Urine Bilirubin NEG, Urine Urobilinogen 0.2, Ur Leukocyte Esterase NEG, Ur Microscopic EXAM NOT REQUIRED, Urine Hemoglobin NEG, Urine Glucose NEG 01/09/17 1531: Magnesium Cancelled, Hzh-K-Ntuoqpvapye Pept Cancelled Microbiology 01/10 2024 NASOPHARYN: Influenza Virus A & B Rapid Smear - ORD 01/09 2014 LOWER RESP: Respiratory Culture - ORD 01/09 2014 LOWER RESP: Gram Stain - ORD 01/09 2014 STOOL: Stool Culture - ORD 01/09 2014 BLOOD: Blood Culture - CAN Cancelled: Cancelled via OE: Per MD Decision 01/09 1608 BLOOD: Blood Culture - RECD 01/09 1600 BLOOD: Blood Culture - RECD 01/09 1537 URINE ROUT: Urine Culture - RECD Assessment/Plan Assessment: In summary this is a 81-year-old female with with past medical history of atrial fibrillation on Eliquis, hypertension, hyperlipidemia, type 2 diabetes mellitus, status post AICD (automatic cardioverter/defibrillator), CHF, obstructive sleep apnea on CPAP, cardiomyopathy, hypothyroidism, previous pulmonary embolism and DVT s/p ivc filter, remote history of breast cancer, obesity, arthritis came in today 01/09/17 from home with chief complaint of increased weakness and difficulty breathing, worsening bilateral lower extremity edema and puffy face, relative weight gain alongwith sputum production which was dripping down her throat with [place] choking and recent 4 to 5 loose watery diarrhea daily since last oen week. Vitals in the emergency department : hypothermia noted at 88.3 >>>88.5>>>89.2>>>90.0 Pulse noted to be 70, respiratory rate of 20, 94% on RA, which improved to 97% oxygen on 2 L of nasal cannula. Relevant labs : * White count low at 4.6, H/H of 12.8/37.9, platelets low at 58 (Baseline 367). * Sodium of 128, potassium of 5.3, BUN and creatinine 46, 1.1 (baseline0.7) glucose of 142 lactic acid of 1.9, calcium of 10.9, magnesium of 1.2, AST and ALT mildly elevated at 39 and 58, alkaline phosphatase 112. * Ammonia normal at 11, first set of troponin is less than 0.02. * ProBNP elevated at 2220. * TSH and free T4 within normal limit, thyroid binding index 45.9. * UA negative for infection and ketones. * ABG pH of 7.37, PCO2 of 40, PO2 49, bicarbonate of 25, 92% oxygen saturation with carboxyhemoglobin of 0.5. * Cultures 2, urine culture, lower respiratory cultures, stool cultures if patient has diarrhea, strep throat and rapid influenza to be followed. * Chest x-ray showed moderate cardiomegaly, no evidence of pneumonia or pneumothorax or pleural effusion. * Head CT, no acute changes, chronic white matter ischemia changes along with vascular calcification. * CTA ruled out pulmonary embolism, cardiomegaly present, no evidence of vascular congestion, right middle and lower lobe groundglass opacification concerning for developing pneumonia. * Ct abdominal and pelvis showed sigmoid diverticulosis without any evidence of diverticulitis, small to moderate free fluid. We'll admit the patient to critical care unit due to hypothermia along with low white count for treatment of sepsis most likely secondary to pneumonia along with treatment of worsening lower extremity edema and CHF. QSOFA : She did not have altered mental status or respiratory rate greater than 22 or systolic blood pressure less than 100 therefore -QSOFA :0 Meets only one sirs criteria of low temperature GULKANA 2 score of 13, 12% estimated nonoperative mortality. Problem List along with assessment and plan Problem #1 hypothermia * Intially presented with temperature of 88.3, continue warming with bear hugger , continue to monitor temperature closely.mental status intact, no shivering noted. * Temperature between 82-90F - moderate hypothermia, patient did not have altered mental status.Possible causes of hypothermia could be sepsis itself with evidence of pneumonia on CTA. Other cause could be electrolyte abnormalities. * No J-point elevation on EKG ( paced EKg) * Other causes of hypothermia could be hypothyroidism, however her thyroid functions are within normal limit. Hypoglycemia, adrenal crisis can also cause hypothermia, less likely in her case,will check random and am cortisol. * No other psych meds that could cause hypothermia. * Continue to warm and check temperature until temperature within normal range. * Continue to monitor electrolytes, next Intensive Care Unit lab and lipid 2200 followed by 6 AM. Problem #2 sepsis secondary to pneumonia. * Right middle and lower lobe on CTA chest. * Continue monitor vitals, IV Unasyn for aspiration pneumonia. * Nothing by mouth, swallow eval in a.m. * Will also check rapid flu and strep throat. * Continue to monitor oxygen saturations. * Continue to follow blood cultures, throat cultures, urine cultures. Problem #3 low platelet. * Platelet 58, baseline platelet is 367. * Low platelet most likely secondary to sepsis. * Other causes of low platelet in setting of sepsis and hypothermia could be DIC - we will check a DIC panel and rule it out. * Continue to monitor platelet at 2200 and with a.m. labs. Problem #4 worsening shortness of breath, no chest pain, rule out acute coronary syndrome with H/o pulmonary hypertension, cardiomypoathy and MR. * Cardiology consult with Dr. Jones in the morning. * EKG did not show any acute ST-T wave changes, first set of troponin negative. Continue to trend troponin and EKG at 2200 and 6 AM. * Last echocardiogram 2005 with ejection fraction of 30-35%, right ventricular systolic pressure 40-50 mmHg, severe TR, severe MR, right atrial and ventricular dilatation. * Will repeat echocardiogram at this admission. * Continue IV Lasix 40 mg for now. * A fine balance between IV Lasix and fluid will have to be managed as the patient is presenting with signs of sepsis along with worsening lower extremity edema and CHF with elevated proBNP. * Continue to monitor intake and output, daily weight. Problem #4 CHF. * 40 milligram of IV Lasix for now. * Continue to monitor oxygen saturation. * If needed ,Repeat chest x-ray in a.m. Problem #5 electrolyte abnormalities - hyperkalemia, hyponatremia, hypomagnesemia. * Continue to monitor electrolytes and replete as necessary. * Hyponatremia 2/2 to dehydration v/s CHF * Patient volume status lips are dry, cyanotic however overall she looks volume overloaded. * No EKG changes secondary to electrolyte abnormalities. * Continue to keep potassium above 4 and magnesium about 2 Problem #6 CATALINO * creatinine 1.1 ( baseline 0.7) * avoid all nephrotoxin * ct to monitor i/o * avoid nsaids * GFR : 48 * careful iv hydration with background of CHF. Problem #7 hypothyroid * Normal TFT's * ct iv levothyroxine at half of PO dose ( as per conversion) * iv levothyroxine .44mcg daily. * Change to Po once passes swallow. Problem #7 H/o A fib * Ct Eliquis 5 mg BID * EKg : v paced rhytm. * Hold carvedilol for now. * if hr increased , consider restarting. Problem # 8 Diabetes Type 2 * continue FS monitoring q6 * novolin SS due to NPO * diabetic Diet once advanced and change to novolog * Off note glipizide was recently D/C'd at PCP Dr pereira. * Hold metformin. * Check Hba1c. Problem #9 Hyperlipidemia * Ct statin. Problem # 10 Hypertension. * Hold all BP meds. * Resume as tolerated if BP high. FC DVT PX : Eliquis PP As Ranked By This Provider Problem List: 1. Sepsis 2. Hypothermia 3. Hyperkalemia 4. Thrombocytopenia 5. Hyponatremia 6. Acute renal failure 7. Aspiration pneumonia Core Measures/Miscellaneous Acute Coronary Syndrome ACS Diagnosis: No Cerebrovascular Accident CVA/TIA Diagnosis: No Congestive Heart Failure CHF Diagnosis: Yes Date of most recent Echo: 09/27/06 Last Known EF %: 35 VANNESSA/ARB for EF <40%: Yes Venous Thromboembolism VTE Risk Factors: Age > 40 [facility] prophylaxis d/t: No contraindications, LE Edema No VTE Pharm Prophylaxis d/t: No contraindications VTE Diagnosis: No VTE Type: NONE VTE Confirmed by (Test): CT CHEST ANGIOGRAM Severe Sepsis Severe Sepsis Present: No Septic Shock Septic Shock Present: No Miscellaneous Documentation Attending Case Discussed With: Dr pina Primary Care Physician: NAVYA ANSARI,Araseli ANGEL Patient sees these Specialists wardrobe assistant Dr dominguez pulmonolgi Level of Patient Care: Critical Care (CRI) Resident Review Statement Resident Statement: examined this patient, admitted by resident ISAURA ANSARI, [facility] 01/09/172028: Attending MD Review Statement Attending Statement Attending MD Statement: examined this patient, discuss w/resident/PA/EXTRACTOR OPERATOR, agreed w/resident/PA/EXTRACTOR OPERATOR, discussed with family Attending Assessment/Plan: 81 yo morbidly obese F with h/o ADRIÁN on CPAP, HTN, remote PE/DVT s/p IVC filter, Afib on eliquis, T2DM, nonischemic CMP with chronic systolic CHF s/p AICD-PPM, moderate MR, pulmonary hypertension, breast and endometrial CA, is brought in from home for c/o weakness, fatigue, worsening LE edema and weight gain over past few weeks. Son Justin (EMT) at bedside, states patient has been slow to respond, but answers accurately. Patient lives alone, uses the wheelchair and can ambulate short distances with a walker. She report chronic exertional dyspnea which has gotten worse over the past 1 month, now even at rest. 1 week ago her PCP increased her lasix dose to 80 mg on // and 40 mg the other days. She did miss lasix dose at times, but not frequently. She reports compliance to dietary salt restriction. She also reports nonproductive cough, sore throat and dysphagia which she thinks is ongoing for a few months. C/o nonbloody diarrhea over past 4 days about 4 episodes daily loose but not watery, son reports she had these episodes after eating food at a scientologist gathering. She denies chest pain, palpitations, lightheadedness. No fever, chills or urinary symptoms. Of note, patient was admitted with similar presentation in 2005. On ER arrival, patient was noted to have cyanotic lips and tip of nose, unable to obtain temperature --> placed on bear hugger --> temp of 84.5 --> 92.7 ( patient lives with her room temp set at 68 degrees); HR 60-70's, BP 136/78, sats 97% on 2L. Exam: AAO, in mild distress. MMM, JVD+, pharyngeal erythema+. Chest bibasilar crackles++, few scattered expiratory wheeze, Heart S1S2 regular, systolic murmur+, Abd soft, NT, Neuro: nonfocal exam, LE: 2+ pitting edema going up to the thigh, bilateral chronic skin changes, no cellulitis. Peripheral pulses were difficult to palpate. Labs: WBC 4.6, Platelet 58, Na 128, K 5.3, BUN 46, Creat 1.1 (baseline 0.7), glucose 142, lactic acid 1.9, Ca 10.9, Mag 1.2, AST 39, ALT 58, trop 0.02, proBNP 2220, TSH/ free T4 normal. UA neg. AB.37/40/49/25 on RA. CXR: moderate cardiomegaly, no pneumonia or effusions. CT head chronic ischemic changes. CTA: no PE, right middle and lower lobe groundglass opacities developing pneumonia. CT abd/pelvis: sigmoid diverticulosis, T6 and L5 compression fracture. EKG: paced. Echo (2005): EF 30-35%, pulm htn, mod MR. 1. Hypothermia with presumed sepsis and acute hypoxemic respiratory failure 2/2 aspiration pneumonia and decompensated systolic congestive heart failure (LE edema, JVD, elevated proBNP). Patient also has moderate MR, pulmonary hypertension, ?cor pulmonale. ICU admit, vitals Q1, bear hugger to help warm the patient, monitor for arrhythmias. TFTs normal, check cortisol levels. Replete electrolytes to keep Mag > 2.0 and K > 4.0. TRC nebs, aspiration precautions, NPO, swallow eval in AM, panculture, check flu swab and strep throat, continue IV Unasyn for now. Repeat ICU bundle at 10 pm. Daily weights, strict I/O's, IV lasix 40 mg once, monitor diuresis. Trend renal functions. Serial EKG and troponin to rule out ACS, Echo, Cardio consult. CRCU/ Pulm consult. 2. Thrombocytopenia in the setting of sepsis and hypothermia. No evidence of active bleeding or thrombosis. DIC is a possibility, PT and aPTT mildly prolonged, low fibrinogen activity, D-dimer elevated. However, plan is to treat the underlying cause. 3. Hypervolemic hyponatremia. Check serum osmolality, urine osmolality and urine lytes. Monitor sodium levels Q6. 4. CATALINO in the setting of ?CHF. Monitor renal functions, avoid NSAIDs or nephrotoxic drugs. Hold benicar and metformin. 5. Diarrhea ?gastroenteritis. If persistent, check stool culture, Cdiff. 6. Afib. Continue eliquis, restart carvedilol 12.5 BID. 7. T2DM. Accucheks, insulin NPO SS, check HbA1c. Hold metformin. Patient has been taken off glipizide. GI ppx IV Protonix. DVT ppx Eliquis. Full code. (Son Justin is the POA in case patient unable to take decisions for self). TTS > 55 mins
--- NOTE | 2017-01-09 20:31 | Admission Certification ---
Admission Certification Certification Statement - As attending physician, I certify that at the time of - admission, based on clinical presentation, severity of - symptoms, need for further diagnostic testing and - therapeutic interventions, and risk of adverse outcomes - without in-hospital treatment, in my clinical assessment, - this patient requires an acute hospital stay for a minimum - of two nights or longer. I have also considered psychsocial - factors such as support system, advanced age, financial - issues, cognitive issues, and failed out-patient treatments, - past re-admission history, safety of patient, and lack of - compliance as applicable. Specific rationale supporting this admission is: Severe sepsis, hypothermia requiring bear hugger, acute hypoxemic respiratory failure, decompensated congestive heart failure and aspiration pneumonia, requiring ICU level of care.
--- NOTE | 2017-01-09 20:38 | NUR ---
PT HAS BED #109-1
[2017-01-09] MEDS ORDERED: ELIQUIS5 M1 PO (20:55)
[2017-01-09 22:57] LABS: ABSOLUTE BASOPHIL COUNT 0 /CUMM (0.0-0.2); ABSOLUTE EOSINOPHIL COUNT 0 /CUMM (0.0-0.7); ABSOLUTE GRANULOCYTE CT 3.8 /CUMM (1.4-6.5); ABSOLUTE LYMPH COUNT 0.3 /CUMM (1.2-3.4); ABSOLUTE MONOCYTE COUNT 0.4 /CUMM (0.10-0.60); BASOPHIL % 0.3 % (0.0-2.0); EOSINOPHIL % 0.1 % (0-5); GRANULOCYTE % 83.6 % (42.2-75.2); MEAN CORPUSCULAR HGB 30.3 PG (27.0-31.0); MEAN CORPUSCULAR HGB CONC 32.3 G/DL (33.0-37.0); MEAN CORPUSCULAR VOLUME 93.7 FL (81.0-99.0); MEAN PLATELET VOLUME 12.2 FL (7.4-10.4); RBC DISTRIBUTION WIDTH 16.3 % (11.5-14.5); RED BLOOD CELL CT 3.85 /CUMM (4.20-5.40); WHITE BLOOD CELL COUNT 4.5 /CUMM (4.8-10.8)
[2017-01-09 23:08] LABS: PT 16.6 SEC (9.4-12.5); PTT 38 SEC (25-37)
[2017-01-09 23:16] LABS: PLATELET COUNT 53 /CUMM (130-400)
[2017-01-10] VITALS: BP 104/70
--- NOTE | 2017-01-10 | NUR ---
PT CAME FROM ER VIA STRETCHER ACCOMPANIED BY ER NURSE.PT TRANSFER TO BED WITH NO ISSUES AND PLACED ON CONTINUOUS MONITOR. ORIENTED PT TO SURROUNDINGS. A/OX3.FOLLOW COMMANDS. DOBBS WITH +CMS. FLAVIA LE'S REDDNED AND EDEMATOUS. HOB ELEVATED. ON 2L O2 WITH SATS >95%.IV MAG GIVEN WITH NO ADVERSE REACTIONS.PIV PATENT. LABS DRAWN AND RESULTS PENDING.NPO. LOZANO PATENT WITH GOOD UO. PLAN OF CARE REVIEWED WITH PT/SON.
--- NOTE | 2017-01-10 01:30 | NUR ---
Dr. Alba Segovia notified of redness to BLE. Legs are very red and tender to the touch. Request at this time is to withhold on use of ALPS. Per Dr. Segovia OK at this time. Will re-evaluate in AM due to patient low platelet count. No acute distress noted. Will monitor.
[2017-01-10 06:35] LABS: ABSOLUTE BASOPHIL COUNT 0 /CUMM (0.0-0.2); ABSOLUTE EOSINOPHIL COUNT 0 /CUMM (0.0-0.7); ABSOLUTE GRANULOCYTE CT 3.1 /CUMM (1.4-6.5); ABSOLUTE LYMPH COUNT 0.3 /CUMM (1.2-3.4); ABSOLUTE MONOCYTE COUNT 0.5 /CUMM (0.10-0.60); BASOPHIL % 0.6 % (0.0-2.0); EOSINOPHIL % 0.5 % (0-5); HEMATOCRIT 34.8 % (37-47); MEAN CORPUSCULAR HGB 30.8 PG (27.0-31.0); MEAN CORPUSCULAR HGB CONC 32.6 G/DL (33.0-37.0); MEAN CORPUSCULAR VOLUME 94.3 FL (81.0-99.0); MEAN PLATELET VOLUME 11.4 FL (7.4-10.4); PLATELET COUNT 45 /CUMM (130-400); RBC DISTRIBUTION WIDTH 15.4 % (11.5-14.5); RED BLOOD CELL CT 3.69 /CUMM (4.20-5.40)
[2017-01-10 06:41] LABS: PT 15.6 SEC (9.4-12.5)
--- NOTE | 2017-01-10 07:29 | Cons- CRCU ---
CARMELO ANSARI,[facility] 01/10/17 0729: Past History Travel History Traveled to [place] past 21 day No Medical History Neurological: NONE EENT: NONE Cardiovascular: AFIB, hypertension, hyperlipidemia, AICD CARDIOMYOPATHY Respiratory: CHF PULMONARY EMBOLISM Gastrointestinal: NONE Hepatic: NONE Renal: NONE Musculoskeletal: NONE Psychiatric: NONE Endocrine: diabetes, HYPOTHYROIDISM Blood Disorders: anemia Cancer(s): BREAST CA Other Medical Hx: type 2 diabetes, atrial fibrillation with current AICD placement, CHF, sleep apnea, hypertension, hyperlipidemia, renal insufficiency, cardiomyopathy, hypothyroidism, anemia, PE, DVT, breast cancer, obesity Surgical History Surgical History: hysterectomy, hysterctomy with bilateral oppherectomy Family History Relations & Conditions If Any: Relation not specified for: *No pertinent family history Psychosocial History Where Do You Live? Home Who Do You Live With? self Smoking Status: Former Smoker ETOH Use: denies use Illicit Drug Use: denies illicit drug use Living Will? yes Power of Radiation Technician/HCP? yes Functional Ability ADLs Independent: dressing, eating, toileting, bathing. Ambulation: walker, and wheelchair IADLs Independent: shopping, housework, finances, food prep, telephone, medication admin. ECHO Results (as available) Date of last Echo 09/27/06 EF% 35 Exam & Diagnostic Data Last 48 Hrs of Labs/Yordan: Laboratory Tests 01/10/17 0540: CBC w Diff MAN DIFF ORDERED, RBC 3.69 L, MCV 94.3, MCH 30.8, RDW 15.4 H, MPV 11.4 H, Gran % 77.0 H, Lymphocytes % 8.3 L, Monocytes % 13.6 H, Eosinophils % 0.5, Basophils % 0.6, Absolute Granulocytes 3.1, Segmented Neutrophils 78 H, Absolute Lymphocytes 0.3 L, Lymphocytes 10 L, Monocytes 12 H, Absolute Monocytes 0.5, Absolute Eosinophils 0, Absolute Basophils 0, Nucleated RBCs 3 H , Platelet Estimate DECREASED, Polychromasia 1+, Hypochromic-Microcytic 1+, Poikilocytosis 1+, Basophilic Stippling 1+, Ovalocytes 1+, Elliptocytes FEW, PUBS MCHC 32.6 L, Fld Total RBCs Counted 100 01/10/17 0450: Magnesium 1.6, Troponin I 0.03, Triglycerides 65, Cholesterol 130, LDL Cholesterol, Calc 34 L, HDL Cholesterol 83 H, Cholesterol/HDL Ratio 2, Cortisol AM Sample 27.3 H, PT 15.6 H, INR 1.49 H, Fibrinogen Activity 182 L, Fibrin Degrad Products >10 but < 40 ug/ml H, D-Dimer 507 H 01/09/17 2240: Anion Gap 10, Estimated GFR 48 L, Glucose 125 H, Calcium 10.6 H, Phosphorus 4.1, Magnesium 1.3 L, Total Bilirubin 0.7, AST 34, ALT 55 H, Troponin I 0.03, Albumin 3.8, PT 16.6 H, INR 1.59 H, APTT 38 H, Fibrinogen Activity 186 L, Fibrin Degrad Products >10 but < 40 ug/ml H, D-Dimer 540 H, CBC w Diff NO MAN DIFF REQ, RBC 3.85 L, MCV 93.7, MCH 30.3, RDW 16.3 H, MPV 12.2 H, Gran % 83.6 H, Lymphocytes % 6.9 L, Monocytes % 9.1, Eosinophils % 0.1, Basophils % 0.3, Absolute Granulocytes 3.8, Absolute Lymphocytes 0.3 L, Absolute Monocytes 0.4, Absolute Eosinophils 0, Absolute Basophils 0, PUBS MCHC 32.3 L 01/09/17 1958: Lactic Acid 1.5 01/09/17 1615: pH 7.37, pCO2 40, pO2 49 *L, HCO3 25, ABG O2 Sat (Measured) 92.0 L, P-50 (Temp Corrected) Y, Carboxyhemoglobin 0.5 L, O2 Concentration % R/A, Temperature 88.3 L, Phlebotomy Draw Site RIGHT RADIAL 01/09/17 1600: Anion Gap 10, Estimated GFR 48 L, BUN/Creatinine Ratio 41.8 H, Glucose 142 H, Hemoglobin A1c 6.0 H, Serum Osmolality 290, Lactic Acid 1.9, Calcium 10.9 H, Magnesium 1.2 L, Total Bilirubin 0.7, AST 39 H, ALT 58 H, Alkaline Phosphatase 112, Ammonia 11, Creatine Kinase 56, Troponin I 0.02, Pro-B- Natriuretic Pept 2220 H, Total Protein 6.6, Albumin 4.0, Globulin 2.6, Albumin/ Globulin Ratio 1.5, TSH 2.490, Free T4 1.89, Thyroxine Binding Indx 45.9 H, Cortisol PM Sample 30.9 H, CBC w Diff NO MAN DIFF REQ, RBC 4.11 L, MCV 92.1, MCH 31.0, RDW 15.8 H, MPV 13.0 H, Gran % 86.6 H, Lymphocytes % 5.9 L, Monocytes % 7.4, Eosinophils % 0, Basophils % 0.1, Absolute Granulocytes 4.0, Absolute Lymphocytes 0.3 L, Absolute Monocytes 0.3, Absolute Eosinophils 0, Absolute Basophils 0, PUBS MCHC 33.7, Acetone Level NEGATIVE 01/09/17 1537: Urine Color YEL, Urine Clarity CLEAR, Urine pH 6.0, Ur Specific [place] 1.015, Urine Protein NEG, Urine Ketones NEG, Urine Nitrite NEG, Urine Bilirubin NEG, Urine Urobilinogen 0.2, Ur Leukocyte Esterase NEG, Ur Microscopic EXAM NOT REQUIRED, Urine Hemoglobin NEG, Urine Glucose NEG 01/09/17 1537: Urine Osmolality 348, Ur Random Creatinine 54.9, Ur Random Sodium 16 L, Ur Random Potassium 62.6, Fraction Sodium Excret 3.0 H 01/09/17 1531: Magnesium Cancelled, Yep-Y-Naidpkixtqo Pept Cancelled 01/09/17 1000: Sodium Cancelled, Potassium Cancelled, Chloride Cancelled, Carbon Dioxide Cancelled, Anion Gap Cancelled, BUN Cancelled, Creatinine Cancelled, Glucose Cancelled, Calcium Cancelled, Phosphorus Cancelled, Magnesium Cancelled, Total Bilirubin Cancelled, AST Cancelled, ALT Cancelled, Albumin Cancelled Microbiology 01/09 1528 URINE ROUT: Legionella Antigen - COMP 01/09 152 URINE ROUT: Streptococcus pneumoniae Antigen (M - COMP Assessment/Plan Consult Acknowledgment - Thank you for your consult request. EVA ANSARI,[facility] 01/10/17 0748: General Information and HPI Consulting Request Date of Consult: 01/10/17 Requested By: Dr. Godwin. Reason for Consult: CRCU management Source of Information: patient, old records Exam Limitations: mildly confused Allergies/Medications Current Medications: Current Medications Sig/Stefanie Start time Last Medication Dose Route Stop Time Status Admin Ampicillin Sodium/ 1,500 MG Q6 01/10 0600 AC 01/10 Sulbactam Sodium IV 0615 Sodium Chloride 100 ML Ampicillin Sodium/ 1,500 MG Q6 01/09 2359 DC 01/10 Sulbactam Sodium IV 0007 Sodium Chloride 250 ML Ampicillin Sodium/ 3,000 MG ONCE ONE 01/09 1630 DC 01/09 Sulbactam Sodium IV 01/09 1659 1632 Sodium Chloride 100 ML Ampicillin Sodium/ 0 .STK-MED ONE 01/09 1629 DC Sulbactam Sodium .ROUTE Apixaban 5 MG BID 01/09 2200 AC PO Atorvastatin Calcium 10 MG 1700 01/10 1700 AC PO Carvedilol 12.5 MG BID 01/10 1000 AC PO Furosemide 0 .STK-MED ONE 01/09 202 DC IV Furosemide 40 MG ONCE ONE 01/09 2015 DC 01/09 IV 01/09 Insulin Human Regular 0 Q6 01/09 2359 AC 01/10 SC 0614 Levothyroxine Sodium 44 MCG DAILY 01/10 1000 AC IV Magnesium Sulfate 1 GM ONCE ONE 01/10 0045 DC 01/10 Dextrose/Water 100 ML IV 01/10 0444 0130 Magnesium Sulfate 1 GM ONCE ONE 01/09 2030 DC 01/09 Dextrose/Water 100 ML IV 01/10 0029 2200 Magnesium Sulfate 1 GM ONCE ONE 01/09 1830 DC 01/09 Dextrose/Water 100 ML IV 01/099 2002 Pantoprazole Sodium 40 MG DAILY 01/10 1000 AC IV Sodium Chloride 1,000 ML BOLUS ONE 01/09 1615 DC 01/09 IV 01/09 1814 1612 Assessment/Plan Other Findings/Comments: The patient is an 81-year-old female with past medical history of atrial fibrillation on Eliquis, hypertension, hyperlipidemia, type 2 diabetes mellitus, status post AICD (automatic cardioverter/defibrillator), CHF, obstructive sleep apnea on CPAP, cardiomyopathy, hypothyroidism, previous pulmonary embolism and DVT s/p IVC filter, remote history of breast cancer, obesity, and arthritis. The patient was admitted overnight with a one week history of increased weakness , cough, increased sputum production, lower extremity swelling and shortness of breath. She also complained of watery diarrhea on and off, with intermittent abdominal discomfort. There is no report of GI bleeding. On the admission evaluation, the patient was found to be hypothermic requiring active rewarming. The patient had testing including a CT angiogram which ruled out pulmonary embolism, and did show a right middle and lower lobe groundglass opacity concerning for developing pneumonia. CT scan of the abdomen and pelvis showed sigmoid diverticulosis without any evidence of diverticulitis with small to moderate free fluid. The patient was pancultured and started on empiric IV Unasyn. At the present time, she is awake and alert. She feels fatigued. Her temperature is within normal range, noting she is at 97.2. She is off the Debbie Hugger. She continues to feel weak and short of breath. Impression: 1. Right middle lobe and right lower lobe community-acquired pneumonia. 2. Acute on chronic lower extremity swelling and venous stasis. 3. Hypothermia, now resolved. 4. Acute kidney injury - need to use caution as the patient reveiced IV contrast. 5. Pancytopenia with significant thrombocytopenia of unclear etiology. The patient remains on Eliquis. No history of bleeding. 6. Atrial fibrillation, rate controlled. History of tachycardia induced cardiomyopathy, + AICD. 7. History of DVT and PE, with an IVC filter in place. 8. Obstructive sleep apnea, on nasal CPAP. 9. Hypothyroidism, on levothyroxine. 10. Diarrhea - resolved. 11. Diabetes - on insulin regimen. Plan: * Continue to monitor core temperature. * Follow up culture results. * Change to ceftriaxone and azithromycin for community-acquired pneumonia. * Check urine for strep pneumo and Legionella. * Please check a quick flu. * Check an echocardiogram. * Consult cardiology - the patient is known to Dr. Nelly do. * Hold Lasix. Repeat renal function later today to determine if patient would benefit from gentle IV fluid hydration. We need to use caution with the possibility of contrast-induced nephropathy. We will consult nephrology if the patient's renal function is worsening. * Check a swallowing evaluation. * Advance diet if able. * Please consult hematology regarding pancytopenia and severe thrombocytopenia. * The Eliquis pending consult. * Monitor electrolytes and replete as necessary. * Monitor blood sugars and continue sliding scale insulin. * DVT prophylaxis - on Eliquis. No alps due to severe chronic venous stasis. * Will continue to monitor the patient in the critical care unit. Consult Acknowledgment - Thank you for your consult request. ESTELLE LITTLE 01/10/17 0843: General Information and HPI Consulting Request Date of Consult: 01/10/17 Source of Information: patient, old records Exam Limitations: no limitations History of Present Illness: This is a 81-year-old female with past medical history of atrial fibrillation on Eliquis, hypertension, hyperlipidemia, type 2 diabetes mellitus, status post AICD (automatic cardioverter/defibrillator), CHF, obstructive sleep apnea on CPAP, cardiomyopathy, hypothyroidism, previous pulmonary embolism and DVT s/p ivc filter, remote history of breast cancer, obesity, arthritis came in today from home with chief complaint of increased weakness and difficulty breathing. Apparently the patient was doing fine until one week prior to admission she was not feeling herself, had worsening weakness and fatigue along with cough, shortness of breath, worsening bilateral lower extremity edema since last 1 week. She also notes that one week back she was at [place] in [place] was in her honor after which she has also been experiencing loose watery motions about 4-5 daily without any blood. She also complains of mild abdominal pain on and off. She says that since today morning her weakness was so bad that she could not get up from the bed and go to the restroom. When she made it to the restroom it was difficult for her to get up from the toilet seat secondary to weakness. She denied any fall, syncope, dizziness. She follows up with as her primary care and had seen him recently in 7- 10 days ago when it was noted that her bilateral lower extremity edema and overall swelling was increased, therefore her Lasix dosage was increased to twice a day on Monday and Monday (40 mg Od to BID) and she was instructed to stop eating salt, potassium was also increased and glipizide was discontinued. However Ms. Moreno continued to have worsening bilateral lower extremity swelling and also seems to have a puffy face. She also noted that she was having cough and was producing some sputum which she was not able to bring up, and she felt like she was having dripping down her throat and occasional choking secondary to sputum. She reports that she doesnt take her lasix when she goes to [place] ( weekyl or biweekly) She denied any chest pain, fever, headache, speech difficulties, nausea, vomiting, sinus tenderness, burning in urine, recent fall. Allergies/Medications Allergies: Coded Allergies: alendronate sodium (RASH 01/09/17) Home Med List: Apixaban (Eliquis) 5 MG TABLET 1 TAB PO BID A fibrillation (Reported) Atorvastatin Calcium (Lipitor) 10 MG TABLET 1 TAB PO DAILY CHOLESTEROL ( Reported) Calcium Carbonate/Vitamin D3 (Os-Uzair 500+D3 Caplet) 500 MG-200 TABLET 1 TAB PO DAILY SUPPLEMENT (Reported) Carvedilol (Coreg) 12.5 MG TABLET 1 TAB PO BID HEART/BP (Reported) Furosemide 40 MG TABLET 1 TAB PO BID DIURETIC (Reported) Levothyroxine Sodium (Levoxyl) 88 MCG TABLET 1 TAB PO DAILY AC THYROID ( Reported) Metformin HCl (Glucophage) 1,000 MG TABLET 1 TAB PO BID DM (Reported) Multivitamin (Multi-Day Vitamins) 1 EACH TABLET 1 TAB PO DAILY SUPPLEMENT ( Reported) Olmesartan Medoxomil (Benicar) 20 MG TABLET 1 TAB PO DAILY BP (Reported) Potassium Chloride 20 MEQ TAB.ER.PRT 1 TAB PO BID SUPPLEMENT (Reported) Current Medications: Current Medications Sig/Stefanie Start time Last Medication Dose Route Stop Time Status Admin Ampicillin Sodium/ 1,500 MG Q6 01/10 0600 DC 01/10 Sulbactam Sodium IV 0615 Sodium Chloride 100 ML Ampicillin Sodium/ 1,500 MG Q6 01/09 2359 DC 01/10 Sulbactam Sodium IV 0007 Sodium Chloride 250 ML Ampicillin Sodium/ 3,000 MG ONCE ONE 01/09 1630 DC 01/09 Sulbactam Sodium IV 01/09 1659 1632 Sodium Chloride 100 ML Ampicillin Sodium/ 0 .STK-MED ONE 01/09 1629 DC Sulbactam Sodium .ROUTE Apixaban 5 MG BID 01/09 2200 AC PO Atorvastatin Calcium 10 MG 1700 01/10 1700 AC PO Azithromycin 500 MG DAILY 01/10 1000 AC Sodium Chloride 250 ML IV Carvedilol 12.5 MG BID 01/10 1000 AC PO Ceftriaxone Sodium 1,000 MG DAILY 01/10 1000 AC IV Furosemide 0 .STK-MED ONE 01/09 2022 DC IV Furosemide 40 MG ONCE ONE 01/09 2015 DC 01/09 IV 01/09 Insulin Human Regular 0 Q6 01/09 2359 AC 01/10 SC 0614 Levothyroxine Sodium 44 MCG DAILY 01/10 1000 AC IV Magnesium Sulfate 1 GM ONCE ONE 01/10 0045 DC 01/10 Dextrose/Water 100 ML IV 01/10 0444 0130 Magnesium Sulfate 1 GM ONCE ONE 01/09 2030 DC 01/09 Dextrose/Water 100 ML IV 01/10 0029 2200 Magnesium Sulfate 1 GM ONCE ONE 01/09 1830 DC 01/09 Dextrose/Water 100 ML IV 01/09 Pantoprazole Sodium 40 MG DAILY 01/10 1000 AC IV Sodium Chloride 1,000 ML BOLUS ONE 01/09 1615 DC 01/09 IV 01/09 1814 1612 Review of Systems Review of Systems Constitutional: Reports: see HPI, weakness. EENTM: Reports: see HPI. Cardiovascular: Reports: see HPI, edema, peripheral edema. Respiratory: Reports: see HPI, short of breath. GI: Reports: see HPI. Genitourinary: Reports: see HPI. Musculoskeletal: Reports: see HPI. Skin: Reports: see HPI, change in skin color, change in hair/nails, dryness. Neurological/Psychological: Reports: see HPI, depressed. Immunologic/Allergic: Reports: no symptoms. Past History Travel History Traveled to [place] past 21 day No Medical History Blood Transfusion Hx: No Neurological: NONE EENT: NONE Cardiovascular: AFIB, hypertension, hyperlipidemia, myocardial infarction Respiratory: obstructive sleep apnea Gastrointestinal: NONE Hepatic: NONE Renal: NONE Musculoskeletal: NONE Psychiatric: NONE Endocrine: diabetes Blood Disorders: anemia ROOM INSPECTOR/Reproductive: NONE Surgical History Surgical History: none Psychosocial History Where Do You Live? Home Who Do You Live With? self Smoking Status: Former Smoker ETOH Use: denies use Illicit Drug Use: denies illicit drug use Living Will? yes Power of Radiation Technician/HCP? yes Functional Ability ADLs Independent: dressing, eating, toileting, bathing. Ambulation: walker IADLs Independent: shopping, housework, finances, food prep, telephone, medication admin. Exam & Diagnostic Data Last 24 Hrs of Vital Signs/I&O Vital Signs Date Time Temp Pulse Resp B/P Pulse O2 O2 Flow FiO2 Ox Delivery Rate 01/10 0800 97.3 69 16 124/69 97 Nasal 2.0L Cannula 01/10 0800 96 Nasal 2.0L Cannula 01/10 0400 94 Nasal 2.0L Cannula 01/10 0000 94 Nasal 2.0L Cannula 01/10 0000 96.1 70 16 104/70 94 Nasal 2.0L Cannula 01/09 2321 95 Nasal 2.0L Cannula 01/09 2106 92.7 69 20 136/78 97 Nasal 2.0L Cannula 01/10 2000 91.4 69 20 126/68 94 Room Air 01/09 1806 90.0 01/09 1728 89.2 70 20 134/83 98 Nasal 2.0L Cannula 01/09 1631 88.5 69 18 110/62 96 Nasal 2.0L Cannula 01/09 1618 88.3 01/09 1559 88.3 69 18 95 Room Air 01/09 1530 96 Nasal 2.0L Cannula 01/09 1522 69 20 110/68 100 Room Air Room Air Intake & Output 01/10 1600 01/10 0800 01/10 0000 Intake Total 360 300 Output Total 1200 870 Balance -840 -570 Intake, IV 360 300 Output, Urine 1200 870 Patient 264 lb 263 lb Weight Physical Exam General Appearance: well developed/nourished, alert, awake Head: atraumatic, normal appearance Ears, Nose, Throat: normal pharynx, normal ENT inspection Neck: supple Respiratory: no respiratory distress, crackles, Basilar crackles R>L Cardiovascular: regular rate/rhythm, murmur, systolic murmur Gastrointestinal: normal bowel sounds, soft Rectal: deferred Extremities: +3-4 pitting pedal edema Neurologic/Psych: oriented x 3 Assessment/Plan Impression/Plan: 81 yo morbidly obese F with h/o ADRIÁN on CPAP, HTN, remote PE/DVT s/p IVC filter, Afib on eliquis, T2DM, nonischemic CMP with chronic systolic CHF s/p AICD-PPM, moderate MR, pulmonary hypertension, breast and endometrial CA, is brought in from home for c/o weakness, fatigue, worsening LE edema and weight gain over past few weeks was admitted for hypothermia. Data Labs: WBC 4.6, Platelet 58, Na 128, K 5.3, BUN 46, Creat 1.1 (baseline 0.7), glucose 142, lactic acid 1.9, Ca 10.9, Mag 1.2, AST 39, ALT 58, trop 0.02, proBNP 2220, TSH/ free T4 normal. UA neg. AB.37/40/49/25 on RA. CXR: moderate cardiomegaly, no pneumonia or effusions. CT head chronic ischemic changes. CTA: no PE, right middle and lower lobe groundglass opacities developing pneumonia. CT abd/pelvis: sigmoid diverticulosis, T6 and L5 compression fracture. EKG: paced. Echo (2005): EF 30-35%, pulm htn, mod MR. 1) Hypothermia with presumed sepsis and acute hypoxemic respiratory failure 2/2 aspiration pneumonia and decompensated systolic congestive heart failure (LE edema, JVD, elevated proBNP) and multifactorila pulmonary HTN (type I and III). Hypothyroidism and adrenal insufficiency, as well as sepsis and CHF were considered to cause hypothermia. Her TSH and T4 level were normal. No eveidence of stroke or [place]. Am and pm cortisol level is normal. and Elevated proBNP. Low SOFA score and 1 positive SIRS criteria. CTA was suggestive of right middle and lower lobe evolving pneumionia. * ceftriaxone and azithromycin for community-acquired pneumonia. * Check urine for strep pneumo and Legionella. * Please check a quick flu. * Check an echocardiogram. * Consult cardiology - the patient is known to Dr. Nelly do. 2) Thrombocytopenia in the setting of sepsis and hypothermia: Although it relatively remote but DIC hiwot to be R/o. DIC pannel was slightly elevated, which barbara concern. However, elevated PT and PTT and low PLT secondary to inhibition of the coagulation cascade and splenic sequstration, respectively, its known phenomenon in the setting of hypothermia. She also has WBC of 4, which is lower than her previous results and could be explained on the basis of splenic sequstraition. * Hematology consult 3) Hypervolemic hyponatremia: Clinical evidence of fluid overload and Serm Osm of 290. most posiibly due to CHF decompensation. * repeat ICU bundle later today and reassess Cr. * Nephrology consult in case of persistent/ worsening renal function. 4) CATALINO (previous Cr at 11/03/2016 was 0.9 mg/dl) in the setting of renal failure. Hold offf lasix and repeat daily labs. 5) Afib. Continue eliquis, restart carvedilol 12.5 BID. 6) DM type II . Uncontrolled. Elevated HA1C 7) GI ppx IV Protonix. DVT ppx Eliquis. Full code. (Son Justin is the POA in case patient unable to take Consult Acknowledgment - Thank you for your consult request.
[2017-01-10 08:00] VITALS: BP 124/69
--- NOTE | 2017-01-10 08:37 | NUR ---
@0800-PT DROWSY/AROUS. ORIENTED X 3. FOLLOWS COMMANDS. GEN WEAKNESS NOTED. TEMP 97.3. CONT ON NC 2L-DENIES SOB. NONPROD SINDY COUGH NOTED. O2SAT 97%. DIM BS TO BASES. PACED HR 60S. PT STATES SHE HAS PACER TO RCW THAT IS NO LONGER ACTIVE AND NEWER PACER/AICD NOTED TO W. BP STABLE. CONT NPO, PENDING SWALLOW EVAL FOR ? ASPIRATION DUE TO PNEUMONIA ON ADMISSION. +BOWEL SOUNDS. PT WAS HAVING LOOSE STOOLS AT HOME, NONE SINCE ADMISSION. LOZANO CATH IN PLACE WITH CLEAR YELLOW URINE. SKIN INTACT WITH GEN EDEMA AND +2/+3 EDEMA TO BLE-RED/TURBINE MECHANIC COLOR-HX PVD. + PULSES NOTED. ORDER NOTED FOR INCREASED ACTIVITY TO CHAIR. AT THIS TIME PT REQUESTS TO SLEEP. STATES DID NOT SLEEP WELL LAST NIGHT. PT EVAL ORD. WILL ATTEMPT TO GET OOB LATER THIS AM. CONT TO MONITOR CLOSELY. CALL ANAMARIA KIDD.
--- NOTE | 2017-01-10 09:35 | Cons- Cardiology ---
General Information and HPI Consulting Request Date of Consult: 01/10/17 Requested By: ISAURA ANSARI,CURRY Reason for Consult: Cardiomyopathy Source of Information: patient, old records Exam Limitations: no limitations History of Present Illness: The patient is a 81-year-old female with a history of a nonischemic cardiomyopathy ejection fraction 35% status post by the ICD, moderate to severe mitral regurgitation, persistent atrial fibrillation on liquids, chronic systolic heart failure, hypertension, obesity, along with obstructive sleep apnea on CPAP now presents with increasing fatigue cough and shortness of breath. The patient was seen by Dr. Avila approximately one week ago noted to have increasing edema. Her Lasix was increased but her symptoms persisted. She noted increasing edema and on the day of admission developed severe weakness to the point that she was unable to get out of the chair. She denied chest pain nausea vomiting or diaphoresis. She did describe a cough but without sputum production. She also denied fever or chills. The patient was seen in the emergency room, found to be hypothermic and felt to have a community acquired pneumonia by CT scan of placed on antibiotics. She also was felt to be volume overloaded in acute congestive heart failure with elevated BNP and therefore treated with IV Lasix. She currently states that her breathing has improved although she is somewhat lethargic. Allergies/Medications Allergies: Coded Allergies: alendronate sodium (RASH 01/09/17) Home Med List: Apixaban (Eliquis) 5 MG TABLET 1 TAB PO BID A fibrillation (Reported) Atorvastatin Calcium (Lipitor) 10 MG TABLET 1 TAB PO DAILY CHOLESTEROL ( Reported) Calcium Carbonate/Vitamin D3 (Os-Uzair 500+D3 Caplet) 500 MG-200 TABLET 1 TAB PO DAILY SUPPLEMENT (Reported) Carvedilol (Coreg) 12.5 MG TABLET 1 TAB PO BID HEART/BP (Reported) Furosemide 40 MG TABLET 1 TAB PO BID DIURETIC (Reported) Levothyroxine Sodium (Levoxyl) 88 MCG TABLET 1 TAB PO DAILY AC THYROID ( Reported) Metformin HCl (Glucophage) 1,000 MG TABLET 1 TAB PO BID DM (Reported) Multivitamin (Multi-Day Vitamins) 1 EACH TABLET 1 TAB PO DAILY SUPPLEMENT ( Reported) Olmesartan Medoxomil (Benicar) 20 MG TABLET 1 TAB PO DAILY BP (Reported) Potassium Chloride 20 MEQ TAB.ER.PRT 1 TAB PO BID SUPPLEMENT (Reported) Current Medications: Current Medications Sig/Stefanie Start time Last Medication Dose Route Stop Time Status Admin Ampicillin Sodium/ 1,500 MG Q6 01/10 0600 DC 01/10 Sulbactam Sodium IV 0615 Sodium Chloride 100 ML Ampicillin Sodium/ 1,500 MG Q6 01/09 2359 DC 01/10 Sulbactam Sodium IV 0007 Sodium Chloride 250 ML Ampicillin Sodium/ 3,000 MG ONCE ONE 01/09 1630 DC 01/09 Sulbactam Sodium IV 01/09 1659 1632 Sodium Chloride 100 ML Ampicillin Sodium/ 0 .STK-MED ONE 01/09 1629 DC Sulbactam Sodium .ROUTE Apixaban 5 MG BID 01/09 2200 AC PO Atorvastatin Calcium 10 MG 1700 01/10 1700 AC PO Azithromycin 500 MG DAILY 01/10 1000 AC Sodium Chloride 250 ML IV Carvedilol 12.5 MG BID 01/10 1000 AC PO Ceftriaxone Sodium 1,000 MG DAILY 01/10 1000 AC IV Furosemide 0 .STK-MED ONE 01/09 2022 DC IV Furosemide 40 MG ONCE ONE 01/09 2015 DC 01/09 IV 01/09 Insulin Human Regular 0 Q6 01/09 2359 AC 01/10 SC 0614 Levothyroxine Sodium 44 MCG DAILY 01/10 1000 AC IV Magnesium Sulfate 1 GM ONCE ONE 01/10 0045 DC 01/10 Dextrose/Water 100 ML IV 01/10 0444 0130 Magnesium Sulfate 1 GM ONCE ONE 01/09 2030 DC 01/09 Dextrose/Water 100 ML IV 01/10 0029 2200 Magnesium Sulfate 1 GM ONCE ONE 01/09 1830 DC 01/09 Dextrose/Water 100 ML IV 01/09 2229 2002 Pantoprazole Sodium 40 MG DAILY 01/10 1000 AC IV Sodium Chloride 1,000 ML BOLUS ONE 01/09 1615 DC 01/09 IV 01/09 1814 1612 Review of Systems Review of Systems: Eyes no blurred or double vision Ears no deafness or ringing Nose and throat no recurrent sinusitis Lungs per history of present illness Heart per history of present illness Abdomen intermittent abdominal discomfort Musculoskeletal occasional muscle and joint pains Psych no anxiety or depression Neuro without recurrent headache or seizures Endocrine no heat or cold intolerance Past History Travel History Traveled to [place] past 21 day No Medical History Blood Transfusion Hx: No Neurological: NONE EENT: NONE Cardiovascular: AFIB, hypertension, hyperlipidemia, myocardial infarction Respiratory: obstructive sleep apnea Gastrointestinal: NONE Hepatic: NONE Renal: NONE Musculoskeletal: NONE Psychiatric: NONE Endocrine: diabetes Blood Disorders: anemia Cancer(s): BREAST CA WO[employer]ENCE E[employer]OR/Reproductive: NONE Other Medical Hx: type 2 diabetes, atrial fibrillation with current AICD placement, CHF, sleep apnea, hypertension, hyperlipidemia, renal insufficiency, cardiomyopathy, hypothyroidism, anemia, PE, DVT, breast cancer, obesity Surgical History Surgical History: none Family History Relations & Conditions If Any: Relation not specified for: *No pertinent family history Psychosocial History Where Do You Live? Home Who Do You Live With? self Smoking Status: Former Smoker ETOH Use: denies use Illicit Drug Use: denies illicit drug use Living Will? yes Power of Ladder Operator/HCP? yes Functional Ability ADLs Independent: dressing, eating, toileting, bathing. Ambulation: walker IADLs Independent: shopping, housework, finances, food prep, telephone, medication admin. ECHO Results (as available) Date of last Echo 06/01/16 EF% 35 Report: Moderate to severe mitral regurgitation Exam & Diagnostic Data Vital Signs and I&O Vital Signs Date Time Temp Pulse Resp B/P Pulse O2 O2 Flow FiO2 Ox Delivery Rate 01/10 0800 97.3 69 16 124/69 97 Nasal 2.0L Cannula 01/10 0800 96 Nasal 2.0L Cannula 01/10 0400 94 Nasal 2.0L Cannula 01/10 0000 94 Nasal 2.0L Cannula 01/10 0000 96.1 70 16 104/70 94 Nasal 2.0L Cannula 01/09 2321 95 Nasal 2.0L Cannula 01/09 2106 92.7 69 20 136/78 97 Nasal 2.0L Cannula 01/09 2000 91.4 69 20 126/68 94 Room Air 01/09 1806 90.0 01/09 1728 89.2 70 20 134/83 98 Nasal 2.0L Cannula 01/09 1631 88.5 69 18 110/62 96 Nasal 2.0L Cannula 01/09 1618 88.3 01/09 1559 88.3 69 18 95 Room Air 01/09 1530 96 Nasal 2.0L Cannula 01/09 1522 69 20 110/68 100 Room Air Room Air Intake & Output 01/10 1600 01/10 0800 01/10 0000 01/09 1600 01/09 0800 01/09 0000 Intake Total 360 300 Output Total 1200 870 Balance -840 -570 Intake, IV 360 300 Output, Urine 1200 870 Patient 264 lb 263 lb Weight Physical Exam: Patient is a well-developed obese female appearing in mild respiratory distress HEENT is unremarkable Neck is supple there is no JVD Lungs scattered rhonchi bilaterally Heart irregular rhythm S1 and S2 are normal no gallops or rubs 3/6 systolic ejection murmur left sternal border Abdomen bowel sounds positive Extremities 3-4+ edema with erythema bilaterally Labs/Yordan Results: Laboratory Tests 01/10 0540 Hematology CBC w Diff MAN DIFF ORDERED WBC (4.8 - 10.8 /CUMM) 4.0 L RBC (4.20 - 5.40 /CUMM) 3.69 L Hgb (12.0 - 16.0 G/DL) 11.3 L Hct (37 - 47 %) 34.8 L MCV (81.0 - 99.0 FL) 94.3 MCH (27.0 - 31.0 PG) 30.8 RDW (11.5 - 14.5 %) 15.4 H Plt Count (130 - 400 /CUMM) 45 L MPV (7.4 - 10.4 FL) 11.4 H Gran % (42.2 - 75.2 %) 77.0 H Lymphocytes % (20.5 - 51.1 %) 8.3 L Monocytes % (1.7 - 9.3 %) 13.6 H Eosinophils % (0 - 5 %) 0.5 Basophils % (0.0 - 2.0 %) 0.6 Absolute Granulocytes (1.4 - 6.5 /CUMM) 3.1 Segmented Neutrophils (42.2 - 75.2 %) 78 H Absolute Lymphocytes (1.2 - 3.4 /CUMM) 0.3 L Lymphocytes (20.5 - 51.1 %) 10 L Monocytes (1.7 - 9.3 %) 12 H Absolute Monocytes (0.10 - 0.60 /CUMM) 0.5 Absolute Eosinophils (0.0 - 0.7 /CUMM) 0 Absolute Basophils (0.0 - 0.2 /CUMM) 0 Nucleated RBCs (0.0 - 0.0 /100WBC) 3 H Platelet Estimate (ADEQUATE) DECREASED Polychromasia 1+ Hypochromic-Microcytic 1+ Poikilocytosis 1+ Basophilic Stippling 1+ Ovalocytes 1+ Elliptocytes FEW PUBS MCHC (33.0 - 37.0 G/DL) 32.6 L Other Body Source Fld Total RBCs Counted (%) 100 01/10 0450 Chemistry Magnesium (1.6 - 2.3 mg/dL) 1.6 Troponin I (< 0.11 ng/ml) 0.03 Triglycerides (<150 mg/dL) 65 Cholesterol (<200 MG/DL) 130 LDL Cholesterol, Calc (65 - 129 mg/dL) 34 L HDL Cholesterol (40 - 60 mg/dL) 83 H Cholesterol/HDL Ratio (0.00 - 4.23 %) 2 Cortisol AM Sample (4.46 - 22.7 ug/dL) 27.3 H Coagulation PT (9.4 - 12.5 SEC) 15.6 H INR (0.90 - 1.19) 1.49 H Fibrinogen Activity (200 - 393 MG/DL) 182 L Fibrin Degrad Products (< 10 ug/ml) >10 but < 40 ug/ml H D-Dimer (70 - 232 ng/ml) 507 H 01/090 8 Chemistry Sodium (137 - 145 mmol/L) 126 L Potassium (3.5 - 5.1 mmol/L) 5.0 Chloride (98 - 107 mmol/L) 89 L Carbon Dioxide (22 - 30 mmol/L) 27 Anion Gap (5 - 16) 10 BUN (7 - 17 mg/dL) 43 H Creatinine (0.5 - 1.0 mg/dL) 1.1 H Estimated GFR (>60 ml/min) 48 L Glucose (65 - 99 mg/dL) 125 H Lactic Acid (0.7 - 2.1 mmol/L) 1.5 Calcium (8.4 - 10.2 mg/dL) 10.6 H Phosphorus (2.5 - 4.5 mg/dL) 4.1 Magnesium (1.6 - 2.3 mg/dL) 1.3 L Total Bilirubin (0.2 - 1.3 mg/dL) 0.7 AST (14 - 36 U/L) 34 ALT (9 - 52 U/L) 55 H Troponin I (< 0.11 ng/ml) 0.03 Albumin (3.5 - 5.0 g/dL) 3.8 Coagulation PT (9.4 - 12.5 SEC) 16.6 H INR (0.90 - 1.19) 1.59 H APTT (25 - 37 SEC) 38 H Fibrinogen Activity (200 - 393 MG/DL) 186 L Fibrin Degrad Products (< 10 ug/ml) >10 but < 40 ug/ml H D-Dimer (70 - 232 ng/ml) 540 H Hematology CBC w Diff NO MAN DIFF REQ WBC (4.8 - 10.8 /CUMM) 4.5 L RBC (4.20 - 5.40 /CUMM) 3.85 L Hgb (12.0 - 16.0 G/DL) 11.6 L Hct (37 - 47 %) 36.0 L MCV (81.0 - 99.0 FL) 93.7 MCH (27.0 - 31.0 PG) 30.3 RDW (11.5 - 14.5 %) 16.3 H Plt Count (130 - 400 /CUMM) 53 L MPV (7.4 - 10.4 FL) 12.2 H Gran % (42.2 - 75.2 %) 83.6 H Lymphocytes % (20.5 - 51.1 %) 6.9 L Monocytes % (1.7 - 9.3 %) 9.1 Eosinophils % (0 - 5 %) 0.1 Basophils % (0.0 - 2.0 %) 0.3 Absolute Granulocytes (1.4 - 6.5 /CUMM) 3.8 Absolute Lymphocytes (1.2 - 3.4 /CUMM) 0.3 L Absolute Monocytes (0.10 - 0.60 /CUMM) 0.4 Absolute Eosinophils (0.0 - 0.7 /CUMM) 0 Absolute Basophils (0.0 - 0.2 /CUMM) 0 PUBS MCHC (33.0 - 37.0 G/DL) 32.3 L 01/09 01/09 1615 1600 Blood Gas pH (7.35 - 7.45 PH) 7.37 pCO2 (35 - 45 TORR) 40 pO2 (80 - 100 TORR) 49 *L HCO3 (21 - 28 MEQ/L) 25 ABG O2 Sat (Measured) (>96.0 %) 92.0 L P-50 (Temp Corrected) Y Carboxyhemoglobin (1.5 - 5.0 %) 0.5 L O2 Concentration % R/A Temperature (97.0 - 100.0 FARH) 88.3 L Chemistry Sodium (137 - 145 mmol/L) 128 L Potassium (3.5 - 5.1 mmol/L) 5.3 H Chloride (98 - 107 mmol/L) 91 L Carbon Dioxide (22 - 30 mmol/L) 27 Anion Gap (5 - 16) 10 BUN (7 - 17 mg/dL) 46 H Creatinine (0.5 - 1.0 mg/dL) 1.1 H Estimated GFR (>60 ml/min) 48 L BUN/Creatinine Ratio (7 - 25 %) 41.8 H Glucose (65 - 99 mg/dL) 142 H Hemoglobin A1c (4.2 - 5.8 %) Pending Serum Osmolality (285 - 295 MOSM/KG) 290 Lactic Acid (0.7 - 2.1 mmol/L) 1.9 Calcium (8.4 - 10.2 mg/dL) 10.9 H Magnesium (1.6 - 2.3 mg/dL) 1.2 L Total Bilirubin (0.2 - 1.3 mg/dL) 0.7 AST (14 - 36 U/L) 39 H ALT (9 - 52 U/L) 58 H Alkaline Phosphatase (<127 U/L) 112 Ammonia (9 - 30 umol/L) 11 Creatine Kinase (30 - 135 U/L) 56 Troponin I (< 0.11 ng/ml) 0.02 [id number]-G-[id number] Pept (<125 pg/mL) 2220 H Total Protein (6.3 - 8.2 g/dL) 6.6 Albumin (3.5 - 5.0 g/dL) 4.0 Globulin (1.9 - 4.2 gm/dL) 2.6 Albumin/Globulin Ratio (1.1 - 2.2 %) 1.5 TSH (0.270 - 4.200 uIU/mL) 2.490 Free T4 (0.85 - 1.93 ng/dL) 1.89 Thyroxine Binding Indx (23.5 - 40.5 % UPTAKE) 45.9 H Cortisol PM Sample (1.7 - 14.1) 30.9 H Hematology CBC w Diff NO MAN DIFF REQ WBC (4.8 - 10.8 /CUMM) 4.6 L RBC (4.20 - 5.40 /CUMM) 4.11 L Hgb (12.0 - 16.0 G/DL) 12.8 Hct (37 - 47 %) 37.9 MCV (81.0 - 99.0 FL) 92.1 MCH (27.0 - 31.0 PG) 31.0 RDW (11.5 - 14.5 %) 15.8 H Plt Count (130 - 400 /CUMM) 58 L MPV (7.4 - 10.4 FL) 13.0 H Gran % (42.2 - 75.2 %) 86.6 H Lymphocytes % (20.5 - 51.1 %) 5.9 L Monocytes % (1.7 - 9.3 %) 7.4 Eosinophils % (0 - 5 %) 0 Basophils % (0.0 - 2.0 %) 0.1 Absolute Granulocytes (1.4 - 6.5 /CUMM) 4.0 Absolute Lymphocytes (1.2 - 3.4 /CUMM) 0.3 L Absolute Monocytes (0.10 - 0.60 /CUMM) 0.3 Absolute Eosinophils (0.0 - 0.7 /CUMM) 0 Absolute Basophils (0.0 - 0.2 /CUMM) 0 PUBS MCHC (33.0 - 37.0 G/DL) 33.7 Miscellaneous Phlebotomy Draw Site RIGHT RADIAL Toxicology Acetone Level (NEGATIVE) NEGATIVE 01/09 01/09 01/09 1537 1537 1531 Chemistry Magnesium Cancelled Rcm-N-Xkquyoddwmt Pept Cancelled Urines Urine Color (YEL,AMB,STR) YEL Urine Clarity (CLEAR) CLEAR Urine pH (5.0 - 8.0) 6.0 Ur Specific [place] (1.001 - 1.035) 1.015 Urine Protein (NEG,<30 MG/DL) NEG Urine Ketones (NEG) NEG Urine Nitrite (NEG) NEG Urine Bilirubin (NEG) NEG Urine Urobilinogen (0.1 - 1.0 EU/dl) 0.2 Ur Leukocyte Esterase (NEG) NEG Ur Microscopic EXAM NOT REQUIRED Urine Hemoglobin (NEG) NEG Urine Osmolality (300 - 1000 MOSM/KG) 348 Ur Random Creatinine (mg/dL) 54.9 Ur Random Sodium (30 - 90 mmol/L) 16 L Ur Random Potassium (mmol/L) 62.6 Fraction Sodium Excret (<1% %) 3.0 H Urine Glucose (N MG/DL) NEG 01/09 UNK Chemistry Sodium Cancelled Potassium Cancelled Chloride Cancelled Carbon Dioxide Cancelled Anion Gap Cancelled BUN Cancelled Creatinine Cancelled Glucose Cancelled Calcium Cancelled Phosphorus Cancelled Magnesium Cancelled Total Bilirubin Cancelled AST Cancelled ALT Cancelled Albumin Cancelled Diagnostic Data EKG Results Paced rhythm CXR Results IMPRESSION: Moderate cardiomegaly. No pneumonia, pneumothorax or pleural effusion. Other Results CTA scan of the chest IMPRESSION: No CT evidence for pulmonary embolism. Cardiomegaly without evidence of vascular congestion. Right middle and lower lobe groundglass opacification concerning for developing pneumonia. Recommendation is for a followup chest series to be obtained following treatment and/or resolution of symptoms to assure resolution of this appearance. CT of the abdomen IMPRESSION: Sigmoid diverticulosis without evidence of diverticulitis. Jdyrh-yy-hevswsli amount of free fluid within the abdomen and pelvis. Right middle and lower lobe groundglass opacification concerning for pneumonia. Assessment/Plan Assessment/Plan 1. Nonischemic cardiomyopathy ejection fraction 35% status post by the ICD 2. Chronic systolic heart failure with elevated BNP but no evidence of congestive heart failure on chest x-ray. She does have significant edema but this appears to be chronic. 3. Persistent atrial fibrillation on Eliquis 4. Community-acquired pneumonia currently on antibiotics next 5. Acute renal insufficiency her most recent BUN/creatinine from October 2016 which were 18 and 0.75. This is most likely secondary to a combination of hypovolemia and possible contrast nephropathy 6. Essential hypertension by history 7. Diabetes 8. 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 Moderate to severe mitral regurgitation 10. Hyponatremia secondary to hypovolemia Recommendations 1. I would continue Eliquis for stroke prevention given her persistent atrial fibrillation 2. Would continue carvedilol for rate control 3. We'll have her AICD interrogated 4. Given her acute renal insufficiency most likely due to a combination of hypovolemia and contrast nephropathy would not administer Lasix at present 5. As discussed with residents recommend reassessing her renal function today. If there is no proven would consider gentle hydration 6. Continue antibiotics for community acquired pneumonia Thank you for allowing [facility] to participate in the care of your patient. Consult Acknowledgment - Thank you for your consult request.
--- NOTE | 2017-01-10 12:49 | ECHOCARDIOGRAM REPORT ---
KEHINDE BISHOP Age: 81 : 1935 Gender: F Exam Date: 01/10/2017 09:05 Exam Location: [facility] Ht (in): 67 Wt (lb): 263 BSA: 2.43 BP: 113 / 64 Ordering Physician: ALTAGRACIA ANDRADE MD Referring Physician: ALTAGRAICA ANDRADE MD Technologist: Bronson Everett RUST Room Number: 109 Indications: Heart failure, unspecified Rhythm: Atrial fibrillation Technical Quality: fair FINDINGS Left Ventricle Mild left ventricular dilatation. Mildly abnormal left ventricular ejection fraction estimated at 35-40%. Flattened septum in systole consistent with right ventricle pressure overload. Left ventricular wall thickness mildly increased. Right Ventricle Mild right ventricular dilatation. Catheter/pacemaker wire in the right ventricular cavity. Right Atrium Moderate to severe right atrial dilatation. Left Atrium Moderate to severe left atrial dilatation. Mitral Valve Mild mitral annular calcification. Moderate mitral regurgitation. Aortic Valve Diffuse thickening (sclerosis) of the aortic valve cusps without reduced excursion. Tricuspid Valve Tricuspid valve is normal in structure and function. Moderate-to- severe tricuspid regurgitation. Right ventricular systolic pressure estimated to be elevated at 40 mmHg. Pulmonic Valve Pulmonic valve not well visualized, grossly normal. Pericardium No pericardial effusion. Great Vessels Normal size aortic root. CONCLUSIONS Moderately reduced left ventricular systolic function. Severe biatrial enlargement. Dilated right heart. Moderate Pulmonary hypertension. Robbin Cummins M.D. (Electronically Signed) Final Date: 10 January 2017 12:48 MEASUREMENTS (Male / Female) Normal Values 2D ECHO LV Diastolic Diameter PLAX 5.8 cm 4.2 - 5.9 / 3.9 - 5.3 cm LV Systolic Diameter PLAX 5.2 cm 2.1 - 4.0 cm LV Fractional Shortening PLAX 10.3 % 25 - 46 % LV Ejection Fraction 2D Teich 22.2 % IVS Diastolic Thickness 1.2 cm LVPW Diastolic Thickness 1.2 cm LV Relative Wall Thickness 0.4 RV Internal Dim ED PLAX 5.0 cm 1.9 - 3.8 cm LVOT Diameter 2.2 cm Aortic Root Diameter 3.1 cm LA Systolic Diameter LX 6.0 cm 3.0 - 4.0 / 2.7 - 3.8 cm LA Volume 171.0 cm 18 - 58 / 22 - 52 cm Ascending Aorta Diameter 3.3 cm DOPPLER AV Peak Velocity 170.0 cm/s AV Peak Gradient 11.6 mmHg AV Mean Velocity 117.0 cm/s AV Mean Gradient 6.0 mmHg AV Velocity Time Integral 36.1 cm LVOT Peak Velocity 60.2 cm/s LVOT Peak Gradient 1.4 mmHg LVOT Mean Velocity 39.7 cm/s LVOT Mean Gradient 1.0 mmHg LVOT Velocity Time Integral 13.2 cm LVOT Stroke Volume 50.2 cm AV Area Cont Eq vti 1.4 cm AV Area Cont Eq pk 1.3 cm MV Peak Velocity 124.0 cm/s MV Peak Gradient 6.2 mmHg MV Mean Velocity 68.9 cm/s MV Mean Gradient 2.0 mmHg Mitral E Point Velocity 126.0 cm/s Mitral A Point Velocity 48.4 cm/s Mitral E to A Ratio 2.6 MV PHT Velocity 136.0 cm/s MV Deceleration [place] 481.0 cm/s MV Pressure Half Time 84.8 ms MV Area PHT 2.6 cm MV Deceleration Time 236.0 ms MR Peak Velocity 516.0 cm/s MR Peak Gradient 106.5 mmHg MR ERO PISA 0.1 cm MR Regurgitant Volume PISA 16.4 cm TR Peak Velocity 273.0 cm/s TR Peak Gradient 29.8 mmHg Right Atrial Pressure 10.0 mmHg Pulmonary Artery Systolic Pressu 39.8 mmHg Right Ventricular Systolic Press 39.8 mmHg PV Peak Velocity 102.0 cm/s PV Peak Gradient 4.2 mmHg PV Mean Velocity 70.4 cm/s PV Mean Gradient 2.0 mmHg PV Velocity Time Integral 21.6 cm LV E' Lateral Velocity 9.7 cm/s Mitral E to LV E' Lateral Ratio 13.1 LV E' Septal Velocity 5.1 cm/s Mitral E to LV E' Septal Ratio 24.9
--- NOTE | 2017-01-10 12:53 | NUR ---
@1200-PT OOB TO GERICHAIR AFTER PHYSICAL THERAPY EVAL. PT UNSTEADY ON FEET, WEAK. BERTHA PAD UNDER PT IN CHAIR. VSS AT THIS TIME. EXERT SOB AND DESAT WITH ACTIVITY. O2SAT IMPROVED TO 94% AFTER RESTING. PACER INTERROGATION BEING DONE AT BEDSIDE AT THIS TIME. REPEAT ICU PANEL DRAWN AND SENT TO LAB. ACCUCJECK 104. SPEECH THERAPY AT BEDSIDE. DIET ORDER OF HH, PUREE/NECTAR THICK. PLAN FOR MBS IN AM. IV ZITHRO INFUSING ORD. CONT TO MONITOR, CALL CONRAD WITHIN REACH.
[2017-01-10 16:00] VITALS: BP 102/60
--- NOTE | 2017-01-10 17:43 | Cons- Oncology ---
General Information and HPI Consulting Request Date of Consult: 01/10/17 Requested By: ISAURA ANSARI,CURRY Reason for Consult: Thrombocytopenia, breast cancer Source of Information: patient, old records Exam Limitations: clinical condition, poor historian History of Present Illness: Ms. Moreno is an 81-year-old female with history of breast cancer status post hormonal therapy, DM, HLD, Afib on Eliquis, AICD, CHF, and ADRIÁN on CPAP who presented to the hospital with weakness of the past 2-3 days. She states he has been feeling well prior to that. She also noted having diarrhea which is loose. She has not been having any fever or chills. She has no nausea or vomiting. She does not increasing edema in the lower extremity of the past 1 week. Due to the weakness, she presented to the ED. In the ED, she noted to be hypothermic at 88.3. She was noted to have low platelet of 58,000. She had CT scan done and demonestrated possible pneumonia. She was also felt to be fluid overloaded and was diruesis with IV Lasix. She currently feels better. Her temperature has improved. Her platelet counts continue to be low. Allergies/Medications Allergies: Coded Allergies: alendronate sodium (RASH 01/09/17) Home Med List: Apixaban (Eliquis) 5 MG TABLET 1 TAB PO BID A fibrillation (Reported) Atorvastatin Calcium (Lipitor) 10 MG TABLET 1 TAB PO DAILY CHOLESTEROL ( Reported) Calcium Carbonate/Vitamin D3 (Os-Uzair 500+D3 Caplet) 500 MG-200 TABLET 1 TAB PO DAILY SUPPLEMENT (Reported) Carvedilol (Coreg) 12.5 MG TABLET 1 TAB PO BID HEART/BP (Reported) Furosemide 40 MG TABLET 1 TAB PO BID DIURETIC (Reported) Levothyroxine Sodium (Levoxyl) 88 MCG TABLET 1 TAB PO DAILY AC THYROID ( Reported) Metformin HCl (Glucophage) 1,000 MG TABLET 1 TAB PO BID DM (Reported) Multivitamin (Multi-Day Vitamins) 1 EACH TABLET 1 TAB PO DAILY SUPPLEMENT ( Reported) Olmesartan Medoxomil (Benicar) 20 MG TABLET 1 TAB PO DAILY BP (Reported) Potassium Chloride 20 MEQ TAB.ER.PRT 1 TAB PO BID SUPPLEMENT (Reported) Current Medications: Current Medications Sig/Stefanie Start time Last Medication Dose Route Stop Time Status Admin Ampicillin Sodium/ 1,500 MG Q6 03/21 0600 DC 01/10 Sulbactam Sodium IV 0615 Sodium Chloride 100 ML Ampicillin Sodium/ 1,500 MG Q6 01/09 2359 DC 01/10 Sulbactam Sodium IV 0007 Sodium Chloride 250 ML Apixaban 5 MG BID 01/09 2200 AC 01/10 PO 0926 Atorvastatin Calcium 10 MG 1700 01/10 1700 AC 01/10 PO 1652 Azithromycin 500 MG DAILY 01/10 1000 AC 01/10 Sodium Chloride 250 ML IV 1125 Carvedilol 12.5 MG BID 01/10 1000 AC 01/10 PO 0926 Ceftriaxone Sodium 1,000 MG DAILY 01/10 1000 AC 01/10 IV 0926 Furosemide 0 .STK-MED ONE 01/09 2022 DC IV Furosemide 40 MG ONCE ONE 01/09 2015 DC 01/09 IV 01/09 Insulin Aspart 0 AT BEDTIME 01/10 2200 AC SC Insulin Aspart 0 TIDAC 01/10 1700 AC 01/10 SC 1651 Insulin Human Regular 0 Q6 01/09 2359 DC 01/10 SC 1205 Levothyroxine Sodium 44 MCG DAILY 01/10 1000 AC 01/10 IV 0927 Magnesium Oxide 400 MG BID 01/10 1445 AC 01/10 PO 01/11 2201 1537 Magnesium Sulfate 1 GM Q2H 01/10 1500 AC 01/10 Dextrose/Water 100 ML IV 01/10 1859 1651 Magnesium Sulfate 1 GM ONCE ONE 01/10 0045 DC 01/10 Dextrose/Water 100 ML IV 01/10 0444 0130 Magnesium Sulfate 1 GM ONCE ONE 01/09 2030 DC 01/09 Dextrose/Water 100 ML IV 01/10 0029 2200 Magnesium Sulfate 1 GM ONCE ONE 01/09 1830 DC 01/09 Dextrose/Water 100 ML IV 01/09 2229 2003 Pantoprazole Sodium 40 MG DAILY 01/10 1000 AC 01/10 IV 0926 Sodium Chloride 1,000 ML BOLUS ONE 01/09 1615 DC 01/09 IV 01/09 1814 1612 Past History Travel History Traveled to [place] past 21 day No Medical History Blood Transfusion Hx: No Neurological: NONE EENT: NONE Cardiovascular: AFIB, hypertension, hyperlipidemia, myocardial infarction Respiratory: obstructive sleep apnea Gastrointestinal: NONE Hepatic: NONE Renal: NONE Musculoskeletal: NONE Psychiatric: NONE Endocrine: diabetes Blood Disorders: anemia Cancer(s): BREAST CA SANITATION ENGINEER/Reproductive: NONE Other Medical Hx: type 2 diabetes, atrial fibrillation with current AICD placement, CHF, sleep apnea, hypertension, hyperlipidemia, renal insufficiency, cardiomyopathy, hypothyroidism, anemia, PE, DVT, breast cancer, obesity Surgical History Surgical History: none Family History Relations & Conditions If Any: Relation not specified for: *No pertinent family history Psychosocial History Where Do You Live? Home Who Do You Live With? self Smoking Status: Former Smoker ETOH Use: denies use Illicit Drug Use: denies illicit drug use Living Will? yes Power of Rehab Consultant/HCP? yes Functional Ability ADLs Independent: dressing, eating, toileting, bathing. Ambulation: walker IADLs Independent: shopping, housework, finances, food prep, telephone, medication admin. ECHO Results (as available) Date of last Echo 06/01/16 EF% 35 Exam & Diagnostic Data Vital Signs and I&O Vital Signs Date Time Temp Pulse Resp B/P Pulse O2 O2 Flow FiO2 Ox Delivery Rate 01/10 1600 69.0 69 20 102/60 94 Nasal 1.0L Cannula 01/10 1600 93 Nasal 1.0L Cannula 01/10 1200 93 Nasal 1.0L Cannula 01/10 0926 69 113/64 01/10 0800 97.3 69 16 124/69 97 Nasal 2.0L Cannula 01/10 0800 96 Nasal 2.0L Cannula 01/10 0400 94 Nasal 2.0L Cannula 01/10 0000 94 Nasal 2.0L Cannula 01/10 0000 96.1 70 16 104/70 94 Nasal 2.0L Cannula 01/09 2321 95 Nasal 2.0L Cannula 01/09 2106 92.7 69 20 136/78 97 Nasal 2.0L Cannula 01/09 2000 91.4 69 20 126/68 94 Room Air 01/09 1806 90.0 01/09 1728 89.2 70 20 134/83 98 Nasal 2.0L Cannula Intake & Output 01/10 1600 01/10 0800 01/10 0000 Intake Total 460 360 300 Output Total 550 1200 870 Balance -90 -840 -570 Intake, IV 310 360 300 Intake, Oral 150 Number 0 Bowel Movements Output, Urine 550 1200 870 Patient 119.833 kg 119.295 kg Weight Physical Exam General Appearance: no apparent distress, alert, awake, comfortable Head: atraumatic Ears, Nose, Throat: normal pharynx Neck: normal inspection Respiratory: chest non-tender, no respiratory distress, quiet respiration Cardiovascular: regular rate/rhythm, edema, murmur Gastrointestinal: normal bowel sounds, soft, non-tender Extremities: normal inspection, pedal edema, hyperpigmented lower extremities Neurologic/Psych: awake, alert, oriented to self, location, but not year and month. Cranial Nerves: normal speech Lymphatic: no anterior cervical alexander Last 48 Hours of Lab Results: Laboratory Tests 01/10 01/10 01/10 1400 1201 0540 Chemistry Sodium (137 - 145 mmol/L) Cancelled 138 Potassium (3.5 - 5.1 mmol/L) Cancelled 4.3 Chloride (98 - 107 mmol/L) Cancelled 96 L Carbon Dioxide (22 - 30 mmol/L) Cancelled 29 Anion Gap (5 - 16) Cancelled 13 BUN (7 - 17 mg/dL) Cancelled 35 H Creatinine (0.5 - 1.0 mg/dL) Cancelled 1.0 Estimated GFR (>60 ml/min) 53 L Glucose (65 - 99 mg/dL) Cancelled 77 Calcium (8.4 - 10.2 mg/dL) Cancelled 8.7 Phosphorus (2.5 - 4.5 mg/dL) Cancelled 3.7 Magnesium (1.6 - 2.3 mg/dL) Cancelled 1.3 L Total Bilirubin (0.2 - 1.3 mg/dL) Cancelled 0.5 AST (14 - 36 U/L) Cancelled 27 ALT (9 - 52 U/L) Cancelled 48 Albumin (3.5 - 5.0 g/dL) Cancelled 3.1 L Hematology CBC w Diff Cancelled MAN DIFF ORDERED WBC (4.8 - 10.8 /CUMM) Cancelled 4.0 L RBC (4.20 - 5.40 /CUMM) Cancelled 3.69 L Hgb (12.0 - 16.0 G/DL) Cancelled 11.3 L Hct (37 - 47 %) Cancelled 34.8 L MCV (81.0 - 99.0 FL) Cancelled 94.3 MCH (27.0 - 31.0 PG) Cancelled 30.8 RDW (11.5 - 14.5 %) Cancelled 15.4 H Plt Count (130 - 400 /CUMM) Cancelled 45 L MPV (7.4 - 10.4 FL) Cancelled 11.4 H Gran % (42.2 - 75.2 %) 77.0 H Lymphocytes % (20.5 - 51.1 %) 8.3 L Monocytes % (1.7 - 9.3 %) 13.6 H Eosinophils % (0 - 5 %) 0.5 Basophils % (0.0 - 2.0 %) 0.6 Absolute Granulocytes (1.4 - 6.5 /CUMM) 3.1 Segmented Neutrophils (42.2 - 75.2 %) 78 H Absolute Lymphocytes (1.2 - 3.4 /CUMM) 0.3 L Lymphocytes (20.5 - 51.1 %) 10 L Monocytes (1.7 - 9.3 %) 12 H Absolute Monocytes (0.10 - 0.60 /CUMM) 0.5 Absolute Eosinophils (0.0 - 0.7 /CUMM) 0 Absolute Basophils (0.0 - 0.2 /CUMM) 0 Nucleated RBCs (0.0 - 0.0 /100WBC) 3 H Platelet Estimate (ADEQUATE) DECREASED Polychromasia 1+ Hypochromic-Microcytic 1+ Poikilocytosis 1+ Basophilic Stippling 1+ Ovalocytes 1+ Elliptocytes FEW PUBS MCHC (33.0 - 37.0 G/DL) Cancelled 32.6 L Other Body Source Fld Total RBCs Counted (%) 100 01/10 0450 Chemistry Magnesium (1.6 - 2.3 mg/dL) 1.6 Troponin I (< 0.11 ng/ml) 0.03 Triglycerides (<150 mg/dL) 65 Cholesterol (<200 MG/DL) 130 LDL Cholesterol, Calc (65 - 129 mg/dL) 34 L HDL Cholesterol (40 - 60 mg/dL) 83 H Cholesterol/HDL Ratio (0.00 - 4.23 %) 2 Cortisol AM Sample (4.46 - 22.7 ug/dL) 27.3 H Coagulation PT (9.4 - 12.5 SEC) 15.6 H INR (0.90 - 1.19) 1.49 H Fibrinogen Activity (200 - 393 MG/DL) 182 L Fibrin Degrad Products (< 10 ug/ml) >10 but < 40 ug/ml H D-Dimer (70 - 232 ng/ml) 507 H 01/090 1958 Chemistry Sodium (137 - 145 mmol/L) 126 L Potassium (3.5 - 5.1 mmol/L) 5.0 Chloride (98 - 107 mmol/L) 89 L Carbon Dioxide (22 - 30 mmol/L) 27 Anion Gap (5 - 16) 10 BUN (7 - 17 mg/dL) 43 H Creatinine (0.5 - 1.0 mg/dL) 1.1 H Estimated GFR (>60 ml/min) 48 L Glucose (65 - 99 mg/dL) 125 H Lactic Acid (0.7 - 2.1 mmol/L) 1.5 Calcium (8.4 - 10.2 mg/dL) 10.6 H Phosphorus (2.5 - 4.5 mg/dL) 4.1 Magnesium (1.6 - 2.3 mg/dL) 1.3 L Total Bilirubin (0.2 - 1.3 mg/dL) 0.7 AST (14 - 36 U/L) 34 ALT (9 - 52 U/L) 55 H Troponin I (< 0.11 ng/ml) 0.03 Albumin (3.5 - 5.0 g/dL) 3.8 Coagulation PT (9.4 - 12.5 SEC) 16.6 H INR (0.90 - 1.19) 1.59 H APTT (25 - 37 SEC) 38 H Fibrinogen Activity (200 - 393 MG/DL) 186 L Fibrin Degrad Products (< 10 ug/ml) >10 but < 40 ug/ml H D-Dimer (70 - 232 ng/ml) 540 H Hematology CBC w Diff NO MAN DIFF REQ WBC (4.8 - 10.8 /CUMM) 4.5 L RBC (4.20 - 5.40 /CUMM) 3.85 L Hgb (12.0 - 16.0 G/DL) 11.6 L Hct (37 - 47 %) 36.0 L MCV (81.0 - 99.0 FL) 93.7 MCH (27.0 - 31.0 PG) 30.3 RDW (11.5 - 14.5 %) 16.3 H Plt Count (130 - 400 /CUMM) 53 L MPV (7.4 - 10.4 FL) 12.2 H Gran % (42.2 - 75.2 %) 83.6 H Lymphocytes % (20.5 - 51.1 %) 6.9 L Monocytes % (1.7 - 9.3 %) 9.1 Eosinophils % (0 - 5 %) 0.1 Basophils % (0.0 - 2.0 %) 0.3 Absolute Granulocytes (1.4 - 6.5 /CUMM) 3.8 Absolute Lymphocytes (1.2 - 3.4 /CUMM) 0.3 L Absolute Monocytes (0.10 - 0.60 /CUMM) 0.4 Absolute Eosinophils (0.0 - 0.7 /CUMM) 0 Absolute Basophils (0.0 - 0.2 /CUMM) 0 PUBS MCHC (33.0 - 37.0 G/DL) 32.3 L 01/09 01/09 1615 1600 Blood Gas pH (7.35 - 7.45 PH) 7.37 pCO2 (35 - 45 TORR) 40 pO2 (80 - 100 TORR) 49 *L HCO3 (21 - 28 MEQ/L) 25 ABG O2 Sat (Measured) (>96.0 %) 92.0 L P-50 (Temp Corrected) Y Carboxyhemoglobin (1.5 - 5.0 %) 0.5 L O2 Concentration % R/A Temperature (97.0 - 100.0 FARH) 88.3 L Chemistry Sodium (137 - 145 mmol/L) 128 L Potassium (3.5 - 5.1 mmol/L) 5.3 H Chloride (98 - 107 mmol/L) 91 L Carbon Dioxide (22 - 30 mmol/L) 27 Anion Gap (5 - 16) 10 BUN (7 - 17 mg/dL) 46 H Creatinine (0.5 - 1.0 mg/dL) 1.1 H Estimated GFR (>60 ml/min) 48 L BUN/Creatinine Ratio (7 - 25 %) 41.8 H Glucose (65 - 99 mg/dL) 142 H Hemoglobin A1c (4.2 - 5.8 %) 6.0 H Serum Osmolality (285 - 295 MOSM/KG) 290 Lactic Acid (0.7 - 2.1 mmol/L) 1.9 Calcium (8.4 - 10.2 mg/dL) 10.9 H Magnesium (1.6 - 2.3 mg/dL) 1.2 L Total Bilirubin (0.2 - 1.3 mg/dL) 0.7 AST (14 - 36 U/L) 39 H ALT (9 - 52 U/L) 58 H Alkaline Phosphatase (<127 U/L) 112 Ammonia (9 - 30 umol/L) 11 Creatine Kinase (30 - 135 U/L) 56 Troponin I (< 0.11 ng/ml) 0.02 [id number] Pept (<125 pg/mL) 2220 H Total Protein (6.3 - 8.2 g/dL) 6.6 Albumin (3.5 - 5.0 g/dL) 4.0 Globulin (1.9 - 4.2 gm/dL) 2.6 Albumin/Globulin Ratio (1.1 - 2.2 %) 1.5 TSH (0.270 - 4.200 uIU/mL) 2.490 Free T4 (0.85 - 1.93 ng/dL) 1.89 Thyroxine Binding Indx (23.5 - 40.5 % UPTAKE) 45.9 H Cortisol PM Sample (1.7 - 14.1) 30.9 H Hematology CBC w Diff NO MAN DIFF REQ WBC (4.8 - 10.8 /CUMM) 4.6 L RBC (4.20 - 5.40 /CUMM) 4.11 L Hgb (12.0 - 16.0 G/DL) 12.8 Hct (37 - 47 %) 37.9 MCV (81.0 - 99.0 FL) 92.1 MCH (27.0 - 31.0 PG) 31.0 RDW (11.5 - 14.5 %) 15.8 H Plt Count (130 - 400 /CUMM) 58 L MPV (7.4 - 10.4 FL) 13.0 H Gran % (42.2 - 75.2 %) 86.6 H Lymphocytes % (20.5 - 51.1 %) 5.9 L Monocytes % (1.7 - 9.3 %) 7.4 Eosinophils % (0 - 5 %) 0 Basophils % (0.0 - 2.0 %) 0.1 Absolute Granulocytes (1.4 - 6.5 /CUMM) 4.0 Absolute Lymphocytes (1.2 - 3.4 /CUMM) 0.3 L Absolute Monocytes (0.10 - 0.60 /CUMM) 0.3 Absolute Eosinophils (0.0 - 0.7 /CUMM) 0 Absolute Basophils (0.0 - 0.2 /CUMM) 0 PUBS MCHC (33.0 - 37.0 G/DL) 33.7 Miscellaneous Phlebotomy Draw Site RIGHT RADIAL Toxicology Acetone Level (NEGATIVE) NEGATIVE 01/09 01/09 01/09 1537 1537 1531 Chemistry Magnesium Cancelled Nxx-C-Ootjhkswihl Pept Cancelled Urines Urine Color (YEL,AMB,STR) YEL Urine Clarity (CLEAR) CLEAR Urine pH (5.0 - 8.0) 6.0 Ur Specific [place] (1.001 - 1.035) 1.015 Urine Protein (NEG,<30 MG/DL) NEG Urine Ketones (NEG) NEG Urine Nitrite (NEG) NEG Urine Bilirubin (NEG) NEG Urine Urobilinogen (0.1 - 1.0 EU/dl) 0.2 Ur Leukocyte Esterase (NEG) NEG Ur Microscopic EXAM NOT REQUIRED Urine Hemoglobin (NEG) NEG Urine Osmolality (300 - 1000 MOSM/KG) 348 Ur Random Creatinine (mg/dL) 54.9 Ur Random Sodium (30 - 90 mmol/L) 16 L Ur Random Potassium (mmol/L) 62.6 Fraction Sodium Excret (<1% %) 3.0 H Urine Glucose (N MG/DL) NEG 01/09 UNK Chemistry Sodium Cancelled Potassium Cancelled Chloride Cancelled Carbon Dioxide Cancelled Anion Gap Cancelled BUN Cancelled Creatinine Cancelled Glucose Cancelled Calcium Cancelled Phosphorus Cancelled Magnesium Cancelled Total Bilirubin Cancelled AST Cancelled ALT Cancelled Albumin Cancelled Imaging/Other Studies: Abdomen/pelvis CT 01/09/2017: Sigmoid diverticulosis without evidence of diverticulitis. Ejzba-mx-drlvzvgl amount of free fluid within the abdomen and pelvis. Right middle and lower lobe groundglass opacification concerning for pneumonia. Chest CTA 01/09/2017: No CT evidence for pulmonary embolism. Cardiomegaly without evidence of vascular congestion. Right middle and lower lobe groundglass opacification concerning for developing pneumonia. Head CT 01/09/2017: Limitation from motion. Given this there is no midline shift or mass effect or hemorrhage. Some atrophy impression probable chronic White matter ischemic changes. Vascular calcifications are noted.. If further evaluation is warranted recommend diffusion MR. Echocardiogram 01/10/2017: Moderately reduced left ventricular systolic function. Severe biatrial enlargement. Dilated right heart. Moderate Pulmonary hypertension. Assessment/Plan Assessment: Ms. Moreno is a 81-year-old female with history of breast cancer status post 5 years of anastrozole and last seen by Dr. Osborne in 02/2015 who presented to the hospital with hypothermia, diffuse weakness, and thrombocytopenia. She had CT scan demonstrating possible pneumonia. She has been started on IV antibiotics with Unasyn and azithromycin. Her temperature has improved. Her platelet was noted to be lower than normal. Peripheral blood smear was reviewed and demonstrated numerous giant platelets, rare nucleated RBC, few atypical lymphocytes, no schistocytes, basophilic stippling, poikilocytosis. This suggest a consumptive/destructive processes. Given her presenting symptoms, this may be related to infections with DIC, HUS, TTP, Drug-induced, and ITP. Severe hypothermia can cause changes with decreased WBC and platelet counts. TTP/HUS is less likely without any obvious MAHA. She has no significant increase in her creatinine. Hemoglobin is stable from previous laboratory data. For right now, I would just monitor her counts. DIC panel should be monitored daily. Recommendations: 1. Monitor CBC 2. Treat underlying infectious (CAP) 3. Monitor DIC progression Problem List: 1. Pneumonia 2. Thrombocytopenia 3. Hypothermia Other Findings/Comments: Please call [phone] Consult Acknowledgment - Thank you for your consult request.
[2017-01-11] VITALS: BP 104/64
--- NOTE | 2017-01-11 04:58 | Event Note ---
Event Note Event Note: ALPS discontinued as patient has severe skin changes peripherally with pain and thus ALPS would exacerbate this.
[2017-01-11 06:10] LABS: ABSOLUTE BASOPHIL COUNT 0 /CUMM (0.0-0.2); ABSOLUTE EOSINOPHIL COUNT 0 /CUMM (0.0-0.7); ABSOLUTE GRANULOCYTE CT 2.7 /CUMM (1.4-6.5); ABSOLUTE LYMPH COUNT 0.6 /CUMM (1.2-3.4); ABSOLUTE MONOCYTE COUNT 0.6 /CUMM (0.10-0.60); BASOPHIL % 0.3 % (0.0-2.0); EOSINOPHIL % 0.7 % (0-5); GRANULOCYTE % 67.6 % (42.2-75.2); HEMATOCRIT 35.8 % (37-47); MEAN CORPUSCULAR HGB 30.6 PG (27.0-31.0); MEAN CORPUSCULAR HGB CONC 32.6 G/DL (33.0-37.0); MEAN PLATELET VOLUME 12.8 FL (7.4-10.4); PLATELET COUNT 58 /CUMM (130-400); RED BLOOD CELL CT 3.81 /CUMM (4.20-5.40)
[2017-01-11 06:29] LABS: PT 16.2 SEC (9.4-12.5)
[2017-01-11 07:26] LABS: WHITE BLOOD CELL COUNT 4.1 /CUMM (4.8-10.8)
--- NOTE | 2017-01-11 07:57 | PN- Resident CRCU ---
Subjective HPI/CRCU Issues: Pt seen this morning, reports feeling "OK", no marked improvement in breathing. She had 2 loose BM yesterday, bilateral pitting edema 3+ but improved from admission. Lungs sounded more clear today than on admission. Platelet still low, 45 to 58, we are following DIC panel, D dimer down from 540 to 285, FSP still between 10 and 40. Na 138 to 133, K 4.3 to 4.8, BUN/cr: 35/1 to 37/1.1 Mag 1.3 to 1.8. Plan for repeat swallow eval today, and MBS, will advance diet accordingly. Await cardiology input on resuming lasix given current kidney functions. Pacemaker interrogated, no changes made. Pt stable to be transferred to telemetry. 24 Hour Events: Max temp 97.6 HR 68-69 single pacing 1-2L NC Systolic BP 84-124 Diastolic BP 51-76 + 1320, - 1500 Objective Vital Signs & I&O Last 8 Hrs of Vitals and I&O: Intake & Output 01/11 1600 01/11 0800 01/11 0000 Intake Total 180 680 Output Total 400 550 Balance -220 130 Intake, IV 200 Intake, Oral 180 480 Output, Urine 400 550 Patient 119.833 kg Weight Laboratory Tests 01/11 01/10 0505 1400 Chemistry Sodium (137 - 145 mmol/L) 133 L Cancelled Potassium (3.5 - 5.1 mmol/L) 4.8 Cancelled Chloride (98 - 107 mmol/L) 94 L Cancelled Carbon Dioxide (22 - 30 mmol/L) 32 H Cancelled Anion Gap (5 - 16) 8 Cancelled BUN (7 - 17 mg/dL) 37 H Cancelled Creatinine (0.5 - 1.0 mg/dL) 1.1 H Cancelled Estimated GFR (>60 ml/min) 48 L Glucose (65 - 99 mg/dL) 79 Cancelled Calcium (8.4 - 10.2 mg/dL) 9.8 Cancelled Phosphorus (2.5 - 4.5 mg/dL) 4.4 Cancelled Magnesium (1.6 - 2.3 mg/dL) 1.8 Cancelled Total Bilirubin (0.2 - 1.3 mg/dL) 0.5 Cancelled AST (14 - 36 U/L) 29 Cancelled ALT (9 - 52 U/L) 50 Cancelled Albumin (3.5 - 5.0 g/dL) 3.4 L Cancelled Coagulation PT (9.4 - 12.5 SEC) 16.2 H INR (0.90 - 1.19) 1.55 H Fibrinogen Activity (200 - 393 MG/DL) 185 L Fibrin Degrad Products (< 10 ug/ml) >10 but < 40 ug/ml H D-Dimer (70 - 232 ng/ml) 285 H Hematology CBC w Diff MAN DIFF ORDERED Cancelled WBC (4.8 - 10.8 /CUMM) 4.1 L Cancelled RBC (4.20 - 5.40 /CUMM) 3.81 L Cancelled Hgb (12.0 - 16.0 G/DL) 11.7 L Cancelled Hct (37 - 47 %) 35.8 L Cancelled MCV (81.0 - 99.0 FL) 94.0 Cancelled MCH (27.0 - 31.0 PG) 30.6 Cancelled RDW (11.5 - 14.5 %) 16.0 H Cancelled Plt Count (130 - 400 /CUMM) 58 L Cancelled MPV (7.4 - 10.4 FL) 12.8 H Cancelled Gran % (42.2 - 75.2 %) 67.6 Lymphocytes % (20.5 - 51.1 %) 16.0 L Monocytes % (1.7 - 9.3 %) 15.4 H Eosinophils % (0 - 5 %) 0.7 Basophils % (0.0 - 2.0 %) 0.3 Absolute Granulocytes (1.4 - 6.5 /CUMM) 2.7 Segmented Neutrophils (42.2 - 75.2 %) 71 Absolute Lymphocytes (1.2 - 3.4 /CUMM) 0.6 L Lymphocytes (20.5 - 51.1 %) 13 L Monocytes (1.7 - 9.3 %) 15 H Absolute Monocytes (0.10 - 0.60 /CUMM) 0.6 Eosinophils (0 - 5.0 %) 1 Absolute Eosinophils (0.0 - 0.7 /CUMM) 0 Absolute Basophils (0.0 - 0.2 /CUMM) 0 Nucleated RBCs (0.0 - 0.0 /100WBC) 5 H Platelet Estimate (ADEQUATE) DECREASED Polychromasia 1+ Hypochromic-Microcytic 1+ Poikilocytosis 1+ Basophilic Stippling SLIGHT Ovalocytes 1+ Elliptocytes FEW PUBS MCHC (33.0 - 37.0 G/DL) 32.6 L Cancelled Other Body Source Fld Total RBCs Counted (%) 100 01/10 1201 Chemistry Sodium (137 - 145 mmol/L) 138 Potassium (3.5 - 5.1 mmol/L) 4.3 Chloride (98 - 107 mmol/L) 96 L Carbon Dioxide (22 - 30 mmol/L) 29 Anion Gap (5 - 16) 13 BUN (7 - 17 mg/dL) 35 H Creatinine (0.5 - 1.0 mg/dL) 1.0 Estimated GFR (>60 ml/min) 53 L Glucose (65 - 99 mg/dL) 77 Calcium (8.4 - 10.2 mg/dL) 8.7 Phosphorus (2.5 - 4.5 mg/dL) 3.7 Magnesium (1.6 - 2.3 mg/dL) 1.3 L Total Bilirubin (0.2 - 1.3 mg/dL) 0.5 AST (14 - 36 U/L) 27 ALT (9 - 52 U/L) 48 Albumin (3.5 - 5.0 g/dL) 3.1 L Microbiology Date/Time Procedure - Status Source Growth 01/10 1900 Clostridium difficile Toxin A & B - RES STOOL 01/10 190 Stool Culture - RES STOOL 01/10 1450 Influenza Virus A & B Rapid Smear - COMP NASOPHARYN Vital Signs Date Time Temp Pulse Resp B/P Pulse O2 O2 Flow FiO2 Ox Delivery Rate 01/11 1023 69 104/60 01/11 0800 93 Nasal 1.0L Cannula 01/11 0800 97.0 69 17 102/50 96 Nasal 1.0L Cannula 01/11 0400 98 Nasal 1.0L Cannula 01/11 0000 97 Nasal 1.0L Cannula 01/11 0000 97.2 68 16 104/64 96 Nasal 1.0L Cannula 01/10 2114 68 90/48 01/10 2000 96 Nasal 2.0L Cannula 01/10 1600 97.3 69 20 102/60 94 Nasal 1.0L Cannula 01/10 1600 93 Nasal 1.0L Cannula 01/10 1200 93 Nasal 1.0L Cannula Intake & Output 01/11 1600 Intake Total Output Total Balance Patient 119.833 kg Weight Exam General Appearance: alert, awake, comfortable Head: normal appearance, nose and lips cyanotic Respiratory: normal breath sounds, chest non-tender, no respiratory distress Cardiovascular: regular rate/rhythm, loud systolic murmur Gastrointestinal: normal bowel sounds, soft, non-tender Current Medications: Current Medications Sig/Stefanie Start time Last Medication Dose Route Stop Time Status Admin Apixaban 5 MG BID 01/09 2200 AC 01/11 PO 1019 Atorvastatin Calcium 10 MG 1700 01/10 1700 AC 01/10 PO 1652 Azithromycin 500 MG DAILY 01/10 1000 AC 01/11 Sodium Chloride 250 ML IV 1029 Carvedilol 12.5 MG BID 01/10 1000 AC 01/11 PO 1023 Ceftriaxone Sodium 1,000 MG DAILY 01/10 1000 AC 01/11 IV 1019 Insulin Aspart 0 AT BEDTIME 01/10 2200 AC SC Insulin Aspart 0 TIDAC 01/10 1700 AC 01/10 SC 1651 Insulin Human Regular 0 Q6 01/09 2359 DC 01/10 SC 1205 Levothyroxine Sodium 44 MCG DAILY 01/10 1000 AC 01/11 IV 1019 Magnesium Oxide 400 MG BID 01/10 1445 AC 01/11 PO 01/11 2201 1020 Magnesium Sulfate 1 GM Q2H 01/10 1500 DC 01/10 Dextrose/Water 100 ML IV 01/10 1859 1651 Pantoprazole Sodium 40 MG DAILY 01/10 1000 AC 01/11 IV 1019 Impression/Plan Impression/Problem List Impression: 81 yo morbidly obese F with h/o ADRIÁN on CPAP, HTN, remote PE/DVT s/p IVC filter, Afib on eliquis, T2DM, nonischemic CMP with chronic systolic CHF s/p AICD-PPM, moderate MR, pulmonary hypertension, breast and endometrial CA, is brought in from home for c/o weakness, fatigue, worsening LE edema and weight gain over past few weeks was admitted to ICU for hypothermia with temp of 88, resolved with bear-hugger, now temp 97. She is also noted to be fluid overloaded with positive JVD, 3+ bilateral pitting edema, now stable for transfer to telemetry. Only 1 time lasix was given because of her kidney functions (cr 1.1 on admssion, was 0.75 2 months ago). Admission Labs: WBC 4.6, Platelet 58, Na 128, K 5.3, BUN 46, Creat 1.1 (baseline 0.7), glucose 142, lactic acid 1.9, Ca 10.9, Mag 1.2, AST 39, ALT 58, trop 0.02, proBNP 2220, TSH/ free T4 normal. UA neg. AB.37/40/49/25 on RA. CXR: moderate cardiomegaly, no pneumonia or effusions. CT head chronic ischemic changes. CTA: no PE, right middle and lower lobe groundglass opacities developing pneumonia. CT abd/pelvis: sigmoid diverticulosis, T6 and L5 compression fracture. EKG: paced. Echo (2005): EF 30-35%, pulm htn, mod MR. # Hypothermia (resolved) with presumed sepsis and acute hypoxemic respiratory failure 2/2 community acquired pneumonia (CT showed right middle and lower lobe evolving pneumonia) vs aspiration pneumonia (reports difficulty bringing up sputum) and decompensated systolic congestive heart failure (LE edema, JVD, elevated proBNP) and multifactorila pulmonary HTN (type I and III). Hypothyroidism and adrenal insufficiency, as well as sepsis and CHF were considered to cause hypothermia. Her TSH and T4 level were normal. No evidence of stroke or OR. Am and pm cortisol level is normal. and Elevated proBNP. Low SOFA score and 1 positive SIRS criteria. CTA was suggestive of . - urine for strep pneumo and Legionella negative - quick flu negative - 01/10/17 echocardiogram: Moderately reduced left ventricular systolic function. Severe biatrial enlargement. Dilated right heart. Moderate Pulmonary hypertension - Pacemaker interrogated, no changes made * Initially started on unasyn for possible aspiration PNA, then changed to ceftriaxone and azithromycin. Continue ceftriaxone and azithromycin for community-acquired pneumonia. * Appreciate cardiology input * MBS and speech therapy, advance diet as per their recc * Stable for tele transfer * Needs to have repeat CT in 4-6 weeks to evaluate for resolution of PNA # CATALINO (previous Cr at 11/03/2016 was 0.75 mg/dl) in the setting of renal failure. * Lasix as per cardiology * Nephrology consult in case of persistent/ worsening renal function. # Thrombocytopenia in the setting of sepsis and hypothermia: DIC pannel was slightly elevated, which barbara concern. However, elevated PT and PTT and low PLT secondary to inhibition of the coagulation cascade and splenic sequstration, respectively, is known phenomenon in the setting of hypothermia. She also has WBC of 4, which is lower than her previous results and could be explained on the basis of splenic sequestration - Platelet on admission 58, was 161 in Oct 2016 * Hematology consult appreciate * Follow DIC panel # Hypervolemic hyponatremia: Clinical evidence of fluid overload and Serm Osm of 290. most posiibly due to CHF decompensation. # Afib * Continue eliquis and carvedilol 12.5 BID. # DM type II - Uncontrolled. Elevated HA1C * accucheck and novolog ss # GI ppx * On IV Protonix. Diet: CC2 thick and puree DVT ppx: no mech, Eliquis. Full code Son Justin is the POA Consults: cardio, ST, hematology Labs: DIC panel for elevated fsp and fibrinogen, cbc for thrombocytopenia bep, mag for electrolyte abnormality, [place] Problem List: 1. Pneumonia 2. Thrombocytopenia Pain Ratin Tomorrow's Labs & Rationales: DIC panel for elevated fsp and fibronogen cbc for thrombocytopenia bep, mag for electrolyte abnormality, [place] Plan DVT/Prophylaxis: pharmacological
[2017-01-11 08:00] VITALS: BP 102/50
--- NOTE | 2017-01-11 08:15 | PN- Oncology ---
Subjective Subjective: She feels about the same. She has some diarrhea still. Her temperature has remained stable. Breathing is about the same. She denies any new pain. Review of Systems Constitutional: Denies: chills, fever. Cardiovascular: Denies: chest pain. Gastrointestinal: Reports: diarrhea. Denies: abdominal pain. All Other Systems: Reviewed and Negative Objective Vital Signs and I&Os Vital Signs Date Time Temp Pulse Resp B/P Pulse O2 O2 Flow FiO2 Ox Delivery Rate 01/11 0400 98 Nasal 1.0L Cannula 01/11 0000 97 Nasal 1.0L Cannula 01/11 0000 97.2 68 16 104/64 96 Nasal 1.0L Cannula 01/10 2114 68 90/48 01/10 2000 96 Nasal 2.0L Cannula 01/10 1600 97.3 69 20 102/60 94 Nasal 1.0L Cannula 01/10 1600 93 Nasal 1.0L Cannula 01/10 1200 93 Nasal 1.0L Cannula 01/10 0926 69 113/64 01/10 0800 97.3 69 16 124/69 97 Nasal 2.0L Cannula 01/10 0800 96 Nasal 2.0L Cannula Intake & Output 01/11 0800 01/11 0000 01/10 1600 01/10 0800 01/10 0000 01/09 1600 Intake Total 180 680 460 360 300 Output Total 400 536 927 4639 870 Balance -220 130 -90 -840 -570 Intake, IV 200 310 360 300 Intake, Oral 180 480 150 Number 0 Bowel Movements Output, Urine 400 953 563 8621 870 Patient 119.833 kg 119.295 kg Weight Physical Exam General Appearance: alert, awake, comfortable Respiratory: chest non-tender, no respiratory distress, quiet respiration, crackles (bases) Cardiovascular: regular rate/rhythm, edema Abdomen: normal bowel sounds, soft, non-tender Extremities: edematous with hyperpigmentation and erythema Neurologic/Psychiatric: awake, alert Skin: intact Current Medications: Current Medications Sig/Stefanie Start time Last Medication Dose Route Stop Time Status Admin Ampicillin Sodium/ 1,500 MG Q6 01/10 0600 DC 01/10 Sulbactam Sodium IV 0615 Sodium Chloride 100 ML Apixaban 5 MG BID 01/09 2200 AC 01/10 PO 2114 Atorvastatin Calcium 10 MG 1700 01/10 1700 AC 01/10 PO 1652 Azithromycin 500 MG DAILY 01/10 1000 AC 01/10 Sodium Chloride 250 ML IV 1125 Carvedilol 12.5 MG BID 01/10 1000 AC 01/10 PO 0926 Ceftriaxone Sodium 1,000 MG DAILY 01/10 1000 AC 01/10 IV 0926 Insulin Aspart 0 AT BEDTIME 01/10 2200 AC SC Insulin Aspart 0 TIDAC 01/10 1700 AC 01/10 SC 1651 Insulin Human Regular 0 Q6 01/09 2359 DC 01/10 SC 1205 Levothyroxine Sodium 44 MCG DAILY 01/10 1000 AC 01/10 IV 0927 Magnesium Oxide 400 MG BID 01/10 1445 AC 01/10 PO 01/11 2201 2114 Magnesium Sulfate 1 GM Q2H 01/10 1500 DC 01/10 Dextrose/Water 100 ML IV 01/10 1859 1651 Pantoprazole Sodium 40 MG DAILY 01/10 1000 AC 01/10 IV 09 Results Last 24 Hours of Lab Results: Laboratory Tests 01/11 01/10 0505 1400 Chemistry Sodium (137 - 145 mmol/L) 133 L Cancelled Potassium (3.5 - 5.1 mmol/L) 4.8 Cancelled Chloride (98 - 107 mmol/L) 94 L Cancelled Carbon Dioxide (22 - 30 mmol/L) 32 H Cancelled Anion Gap (5 - 16) 8 Cancelled BUN (7 - 17 mg/dL) 37 H Cancelled Creatinine (0.5 - 1.0 mg/dL) 1.1 H Cancelled Estimated GFR (>60 ml/min) 48 L Glucose (65 - 99 mg/dL) 79 Cancelled Calcium (8.4 - 10.2 mg/dL) 9.8 Cancelled Phosphorus (2.5 - 4.5 mg/dL) 4.4 Cancelled Magnesium (1.6 - 2.3 mg/dL) 1.8 Cancelled Total Bilirubin (0.2 - 1.3 mg/dL) 0.5 Cancelled AST (14 - 36 U/L) 29 Cancelled ALT (9 - 52 U/L) 50 Cancelled Albumin (3.5 - 5.0 g/dL) 3.4 L Cancelled Coagulation PT (9.4 - 12.5 SEC) 16.2 H INR (0.90 - 1.19) 1.55 H Fibrinogen Activity (200 - 393 MG/DL) 185 L Fibrin Degrad Products (< 10 ug/ml) >10 but < 40 ug/ml H D-Dimer (70 - 232 ng/ml) 285 H Hematology CBC w Diff MAN DIFF ORDERED Cancelled WBC (4.8 - 10.8 /CUMM) 4.1 L Cancelled RBC (4.20 - 5.40 /CUMM) 3.81 L Cancelled Hgb (12.0 - 16.0 G/DL) 11.7 L Cancelled Hct (37 - 47 %) 35.8 L Cancelled MCV (81.0 - 99.0 FL) 94.0 Cancelled MCH (27.0 - 31.0 PG) 30.6 Cancelled RDW (11.5 - 14.5 %) 16.0 H Cancelled Plt Count (130 - 400 /CUMM) 58 L Cancelled MPV (7.4 - 10.4 FL) 12.8 H Cancelled Gran % (42.2 - 75.2 %) 67.6 Lymphocytes % (20.5 - 51.1 %) 16.0 L Monocytes % (1.7 - 9.3 %) 15.4 H Eosinophils % (0 - 5 %) 0.7 Basophils % (0.0 - 2.0 %) 0.3 Absolute Granulocytes (1.4 - 6.5 /CUMM) 2.7 Segmented Neutrophils (42.2 - 75.2 %) 71 Absolute Lymphocytes (1.2 - 3.4 /CUMM) 0.6 L Lymphocytes (20.5 - 51.1 %) 13 L Monocytes (1.7 - 9.3 %) 15 H Absolute Monocytes (0.10 - 0.60 /CUMM) 0.6 Eosinophils (0 - 5.0 %) 1 Absolute Eosinophils (0.0 - 0.7 /CUMM) 0 Absolute Basophils (0.0 - 0.2 /CUMM) 0 Nucleated RBCs (0.0 - 0.0 /100WBC) 5 H Platelet Estimate (ADEQUATE) DECREASED Polychromasia 1+ Hypochromic-Microcytic 1+ Poikilocytosis 1+ Basophilic Stippling SLIGHT Ovalocytes 1+ Elliptocytes FEW PUBS MCHC (33.0 - 37.0 G/DL) 32.6 L Cancelled Other Body Source Fld Total RBCs Counted (%) 100 03 1201 Chemistry Sodium (137 - 145 mmol/L) 138 Potassium (3.5 - 5.1 mmol/L) 4.3 Chloride (98 - 107 mmol/L) 96 L Carbon Dioxide (22 - 30 mmol/L) 29 Anion Gap (5 - 16) 13 BUN (7 - 17 mg/dL) 35 H Creatinine (0.5 - 1.0 mg/dL) 1.0 Estimated GFR (>60 ml/min) 53 L Glucose (65 - 99 mg/dL) 77 Calcium (8.4 - 10.2 mg/dL) 8.7 Phosphorus (2.5 - 4.5 mg/dL) 3.7 Magnesium (1.6 - 2.3 mg/dL) 1.3 L Total Bilirubin (0.2 - 1.3 mg/dL) 0.5 AST (14 - 36 U/L) 27 ALT (9 - 52 U/L) 48 Albumin (3.5 - 5.0 g/dL) 3.1 L Assessment/Plan Assessment/Recommendations: Ms. Moreno is a 81-year-old female with history of breast cancer status post 5 years of anastrozole and last seen by Dr. Osborne in 02/2015 who presented to the hospital with hypothermia, diffuse weakness, and thrombocytopenia. She had CT scan demonstrating possible pneumonia. She has been started on IV antibiotics with Unasyn and azithromycin. Her counts have improved. Platelet is 58,000 today. WBC is 4.1. She continues to improve clinically. DIC panel has been stable. Recommendations: 1. Monitor CBC daily 2. Treat underlying infection Please call [phone] with any questions. Problem List: 1. Breast cancer 2. Pneumonia 3. Thrombocytopenia 4. Hypothermia
--- NOTE | 2017-01-11 08:25 | PN- CRCU ---
Subjective HPI/Critical Care Issues: The patient is awake and alert. Her temperature has remained in the normal range. She remains on 1 L nasal cannula with saturations in the high 90s. She continues to have good urine output. There were no overnight events reported. Objective Current Medications: Current Medications Sig/Stefanie Start time Last Medication Dose Route Stop Time Status Admin Ampicillin Sodium/ 1,500 MG Q6 01/10 0600 DC 01/10 Sulbactam Sodium IV 0615 Sodium Chloride 100 ML Apixaban 5 MG BID 01/09 2200 AC 01/10 PO 2114 Atorvastatin Calcium 10 MG 1700 01/10 1700 AC 01/10 PO 1652 Azithromycin 500 MG DAILY 01/10 1000 AC 01/10 Sodium Chloride 250 ML IV 1125 Carvedilol 12.5 MG BID 01/10 1000 AC 01/10 PO 0926 Ceftriaxone Sodium 1,000 MG DAILY 01/10 1000 AC 01/10 IV 0926 Insulin Aspart 0 AT BEDTIME 01/10 2200 AC SC Insulin Aspart 0 TIDAC 01/10 1700 AC 01/10 SC 1651 Insulin Human Regular 0 Q6 01/09 2359 DC 01/10 SC 1205 Levothyroxine Sodium 44 MCG DAILY 01/10 1000 AC 01/10 IV 0927 Magnesium Oxide 400 MG BID 01/10 1445 AC 01/10 PO 01/11 2201 2114 Magnesium Sulfate 1 GM Q2H 01/10 1500 DC 01/10 Dextrose/Water 100 ML IV 01/10 1859 1651 Pantoprazole Sodium 40 MG DAILY 01/10 1000 AC 01/10 IV 0926 Vital Signs & I&O Last 24 Hrs of Vitals and I&O: Vital Signs Date Time Temp Pulse Resp B/P Pulse O2 O2 Flow FiO2 Ox Delivery Rate 01/11 0400 98 Nasal 1.0L Cannula 01/11 0000 97 Nasal 1.0L Cannula 01/11 0000 97.2 68 16 104/64 96 Nasal 1.0L Cannula 01/10 2114 68 90/48 01/10 2000 96 Nasal 2.0L Cannula 01/10 1600 97.3 69 20 102/60 94 Nasal 1.0L Cannula 01/10 1600 93 Nasal 1.0L Cannula 01/10 1200 93 Nasal 1.0L Cannula 01/10 0926 69 113/64 Intake & Output 01/11 1600 01/11 0800 01/11 0000 Intake Total 180 680 Output Total 400 550 Balance -220 130 Intake, IV 200 Intake, Oral 180 480 Output, Urine 400 550 Physical Exam General Appearance: well developed/nourished, alert, awake Head: atraumatic, normal appearance Neck: supple Respiratory: no respiratory distress, coarse basilar breath sounds on the right greater than left Cardiovascular: regular rate/rhythm, murmur, systolic murmur, paced on the monitor Gastrointestinal: normal bowel sounds, soft Extremities: +3-4 pitting pedal edema, chronic venous stasis Results Last 24 Hrs of Lab Results: Laboratory Tests 01/11/17 0505: Anion Gap 8, Estimated GFR 48 L, Glucose 79, Calcium 9.8, Phosphorus 4.4, Magnesium 1.8, Total Bilirubin 0.5, AST 29, ALT 50, Albumin 3.4 L, PT 16.2 H, INR 1.55 H, Fibrinogen Activity 185 L, Fibrin Degrad Products >10 but < 40 ug/ ml H, D-Dimer 285 H, CBC w Diff MAN DIFF ORDERED, RBC 3.81 L, MCV 94.0, MCH 30.6, RDW 16.0 H, MPV 12.8 H, Gran % 67.6, Lymphocytes % 16.0 L, Monocytes % 15.4 H, Eosinophils % 0.7, Basophils % 0.3, Absolute Granulocytes 2.7, Segmented Neutrophils 71, Absolute Lymphocytes 0.6 L, Lymphocytes 13 L, Monocytes 15 H, Absolute Monocytes 0.6, Eosinophils 1, Absolute Eosinophils 0, Absolute Basophils 0, Nucleated RBCs 5 H, Platelet Estimate DECREASED, Polychromasia 1+, Hypochromic-Microcytic 1+, Poikilocytosis 1+, Basophilic Stippling SLIGHT, Ovalocytes 1+, Elliptocytes FEW, PUBS MCHC 32.6 L, Fld Total RBCs Counted 100 01/10/17 1400: Sodium Cancelled, Potassium Cancelled, Chloride Cancelled, Carbon Dioxide Cancelled, Anion Gap Cancelled, BUN Cancelled, Creatinine Cancelled, Glucose Cancelled, Calcium Cancelled, Phosphorus Cancelled, Magnesium Cancelled, Total Bilirubin Cancelled, AST Cancelled, ALT Cancelled, Albumin Cancelled, CBC w Diff Cancelled, WBC Cancelled, RBC Cancelled, Hgb Cancelled, Hct Cancelled, MCV Cancelled, MCH Cancelled, RDW Cancelled, Plt Count Cancelled, MPV Cancelled, PUBS MCHC Cancelled 01/10/17 1201: Anion Gap 13, Estimated GFR 53 L, Glucose 77, Calcium 8.7, Phosphorus 3.7, Magnesium 1.3 L, Total Bilirubin 0.5, AST 27, ALT 48, Albumin 3.1 L Last 24 Hrs of Micro Results: Urine negative for pneumococcus and Legionella. Flu negative. Cultures are negative to date. Impression/Plan Impression/Plan Impression/Plan: 1. Right middle lobe and right lower lobe community-acquired pneumonia. 2. Acute on chronic lower extremity swelling and venous stasis. 3. Chronic systolic congestive heart failure secondary to nonischemic cardiomyopathy, + AICD. 4. Acute kidney injury - need to use caution as the patient reveiced IV contrast. 5. Thrombocytopenia, possibly related to DIC - hematology following, checking DIC panels daily. 6. Atrial fibrillation, rate controlled, on Eliquis. 7. History of DVT and PE, with an IVC filter in place. 8. Obstructive sleep apnea, on nasal CPAP. 9. Hypothyroidism, on levothyroxine. 10. Diarrhea - resolved. 11. Diabetes - on insulin regimen. Recommendations: * Follow up culture results. * Continue ceftriaxone and azithromycin for community-acquired pneumonia. * Will discuss with cardiology regarding the timing of restarting Lasix. Appreciate input. * Modified barium swallow to be checked as per speech therapy. * Advance diet as tolerated after MBS. * Continue Eliquis. * Follow DIC panel daily. Will follow hematology's recommendations, appreciate input. * Monitor electrolytes and replete as necessary. * Monitor blood sugars and continue sliding scale insulin. * DVT prophylaxis - on Eliquis. No alps due to severe chronic venous stasis. * Physical therapy consult, increase activity, out of bed to chair. * The patient will require a follow-up CT scan of the chest in 4-6 weeks to ensure resolution of the pneumonia. * Downgrade to telemetry.
--- NOTE | 2017-01-11 12:02 | PN- Cardiology ---
Subjective Subjective: Patient laying flat in bed and appears comfortable. Minimal dyspnea. No chest pain. Currently on nasal cannula. Objective Vital Signs and I&Os Vital Signs Date Time Temp Pulse Resp B/P Pulse O2 O2 Flow FiO2 Ox Delivery Rate 01/11 1023 69 104/60 01/11 0800 93 Nasal 1.0L Cannula 01/11 0800 97.0 69 17 102/50 96 Nasal 1.0L Cannula 01/11 0400 98 Nasal 1.0L Cannula 01/11 0000 97 Nasal 1.0L Cannula 01/11 0000 97.2 68 16 104/64 96 Nasal 1.0L Cannula 01/10 2114 68 90/48 01/10 2000 96 Nasal 2.0L Cannula 01/10 1600 97.3 69 20 102/60 94 Nasal 1.0L Cannula 01/10 1600 93 Nasal 1.0L Cannula 01/10 1200 93 Nasal 1.0L Cannula Intake & Output 01/11 1600 01/11 0800 01/11 0000 01/10 1600 01/10 0800 01/10 0000 Intake Total 180 680 460 360 300 Output Total 400 524 767 7095 870 Balance -220 130 -90 -840 -570 Intake, IV 200 310 360 300 Intake, Oral 180 480 150 Number 0 Bowel Movements Output, Urine 400 204 386 [id number] Patient 264 lb 264 lb 263 lb Weight Physical Exam: General: no apparent distress. Alert. On nasal cannula Eyes: No obvious scleral icterus. HEENT: No jugular venous distention or abnormal jugular venous pulsations. Cardiovascular: Normal intensity S1/S2. Regular. One out of 6 systolic murmur Respiratory: Coarse breath sounds at the bases Abdomen: Soft, nontender with no guarding or rebound tenderness. Musculoskeletal: No clubbing or cyanosis noted, 3+ lower extremity edema bilaterally Skin: warm Neurologic: No gross focal deficits noted. Current Medications: Current Medications Sig/Stefanie Start time Last Medication Dose Route Stop Time Status Admin Apixaban 5 MG BID 01/09 2200 AC 01/11 PO 1019 Atorvastatin Calcium 10 MG 1700 01/10 1700 AC 01/10 PO 1652 Azithromycin 500 MG DAILY 01/10 1000 AC 01/11 Sodium Chloride 250 ML IV 1029 Carvedilol 12.5 MG BID 01/10 1000 AC 01/11 PO 1023 Ceftriaxone Sodium 1,000 MG DAILY 01/10 1000 AC 01/11 IV 1019 Insulin Aspart 0 AT BEDTIME 01/10 2200 [facility] Insulin Aspart 0 TIDAC 01/10 1700 AC 01/10 SC 1651 Insulin Human Regular 0 Q6 01/09 2359 DC 01/10 SC 1205 Levothyroxine Sodium 44 MCG DAILY 01/10 1000 AC 01/11 IV 1019 Magnesium Oxide 400 MG BID 01/10 1445 AC 01/11 PO 01/11 2201 1020 Magnesium Sulfate 1 GM Q2H 01/10 1500 DC 01/10 Dextrose/Water 100 ML IV 01/10 185 1651 Pantoprazole Sodium 40 MG DAILY 01/10 1000 AC 01/11 IV 1019 Results Last 48 Hrs of Labs/Mics: Laboratory Tests 01/11/17 0505: Anion Gap 8, Estimated GFR 48 L, Glucose 79, Calcium 9.8, Phosphorus 4.4, Magnesium 1.8, Total Bilirubin 0.5, AST 29, ALT 50, Albumin 3.4 L, PT 16.2 H, INR 1.55 H, Fibrinogen Activity 185 L, Fibrin Degrad Products >10 but < 40 ug/ ml H, D-Dimer 285 H, CBC w Diff MAN DIFF ORDERED, RBC 3.81 L, MCV 94.0, MCH 30.6, RDW 16.0 H, MPV 12.8 H, Gran % 67.6, Lymphocytes % 16.0 L, Monocytes % 15.4 H, Eosinophils % 0.7, Basophils % 0.3, Absolute Granulocytes 2.7, Segmented Neutrophils 71, Absolute Lymphocytes 0.6 L, Lymphocytes 13 L, Monocytes 15 H, Absolute Monocytes 0.6, Eosinophils 1, Absolute Eosinophils 0, Absolute Basophils 0, Nucleated RBCs 5 H, Platelet Estimate DECREASED, Polychromasia 1+, Hypochromic-Microcytic 1+, Poikilocytosis 1+, Basophilic Stippling SLIGHT, Ovalocytes 1+, Elliptocytes FEW, PUBS MCHC 32.6 L, Fld Total RBCs Counted 100 01/10/17 1400: Sodium Cancelled, Potassium Cancelled, Chloride Cancelled, Carbon Dioxide Cancelled, Anion Gap Cancelled, BUN Cancelled, Creatinine Cancelled, Glucose Cancelled, Calcium Cancelled, Phosphorus Cancelled, Magnesium Cancelled, Total Bilirubin Cancelled, AST Cancelled, ALT Cancelled, Albumin Cancelled, CBC w Diff Cancelled, WBC Cancelled, RBC Cancelled, Hgb Cancelled, Hct Cancelled, MCV Cancelled, MCH Cancelled, RDW Cancelled, Plt Count Cancelled, MPV Cancelled, PUBS MCHC Cancelled 01/10/17 1201: Anion Gap 13, Estimated GFR 53 L, Glucose 77, Calcium 8.7, Phosphorus 3.7, Magnesium 1.3 L, Total Bilirubin 0.5, AST 27, ALT 48, Albumin 3.1 L 01/10/17 0540: CBC w Diff MAN DIFF ORDERED, RBC 3.69 L, MCV 94.3, MCH 30.8, RDW 15.4 H, MPV 11.4 H, Gran % 77.0 H, Lymphocytes % 8.3 L, Monocytes % 13.6 H, Eosinophils % 0.5, Basophils % 0.6, Absolute Granulocytes 3.1, Segmented Neutrophils 78 H, Absolute Lymphocytes 0.3 L, Lymphocytes 10 L, Monocytes 12 H, Absolute Monocytes 0.5, Absolute Eosinophils 0, Absolute Basophils 0, Nucleated RBCs 3 H , Platelet Estimate DECREASED, Polychromasia 1+, Hypochromic-Microcytic 1+, Poikilocytosis 1+, Basophilic Stippling 1+, Ovalocytes 1+, Elliptocytes FEW, PUBS MCHC 32.6 L, Fld Total RBCs Counted 100 01/10/17 0450: Magnesium 1.6, Troponin I 0.03, Triglycerides 65, Cholesterol 130, LDL Cholesterol, Calc 34 L, HDL Cholesterol 83 H, Cholesterol/HDL Ratio 2, Cortisol AM Sample 27.3 H, PT 15.6 H, INR 1.49 H, Fibrinogen Activity 182 L, Fibrin Degrad Products >10 but < 40 ug/ml H, D-Dimer 507 H 01/09/17 2240: Anion Gap 10, Estimated GFR 48 L, Glucose 125 H, Calcium 10.6 H, Phosphorus 4.1, Magnesium 1.3 L, Total Bilirubin 0.7, AST 34, ALT 55 H, Troponin I 0.03, Albumin 3.8, PT 16.6 H, INR 1.59 H, APTT 38 H, Fibrinogen Activity 186 L, Fibrin Degrad Products >10 but < 40 ug/ml H, D-Dimer 540 H, CBC w Diff NO MAN DIFF REQ, RBC 3.85 L, MCV 93.7, MCH 30.3, RDW 16.3 H, MPV 12.2 H, Gran % 83.6 H, Lymphocytes % 6.9 L, Monocytes % 9.1, Eosinophils % 0.1, Basophils % 0.3, Absolute Granulocytes 3.8, Absolute Lymphocytes 0.3 L, Absolute Monocytes 0.4, Absolute Eosinophils 0, Absolute Basophils 0, PUBS MCHC 32.3 L 01/09/171957: Lactic Acid 1.5 01/09/17 1615: pH 7.37, pCO2 40, pO2 49 *L, HCO3 25, ABG O2 Sat (Measured) 92.0 L, P-50 (Temp Corrected) Y, Carboxyhemoglobin 0.5 L, O2 Concentration % R/A, Temperature 88.3 L, Phlebotomy Draw Site RIGHT RADIAL 01/09/17 1600: Anion Gap 10, Estimated GFR 48 L, BUN/Creatinine Ratio 41.8 H, Glucose 142 H, Hemoglobin A1c 6.0 H, Serum Osmolality 290, Lactic Acid 1.9, Calcium 10.9 H, Magnesium 1.2 L, Total Bilirubin 0.7, AST 39 H, ALT 58 H, Alkaline Phosphatase 112, Ammonia 11, Creatine Kinase 56, Troponin I 0.02, Pro-B- Natriuretic Pept 2220 H, Total Protein 6.6, Albumin 4.0, Globulin 2.6, Albumin/ Globulin Ratio 1.5, TSH 2.490, Free T4 1.89, Thyroxine Binding Indx 45.9 H, Cortisol PM Sample 30.9 H, CBC w Diff NO MAN DIFF REQ, RBC 4.11 L, MCV 92.1, MCH 31.0, RDW 15.8 H, MPV 13.0 H, Gran % 86.6 H, Lymphocytes % 5.9 L, Monocytes % 7.4, Eosinophils % 0, Basophils % 0.1, Absolute Granulocytes 4.0, Absolute Lymphocytes 0.3 L, Absolute Monocytes 0.3, Absolute Eosinophils 0, Absolute Basophils 0, PUBS MCHC 33.7, Acetone Level NEGATIVE 01/09/17 1537: Urine Color YEL, Urine Clarity CLEAR, Urine pH 6.0, Ur Specific [place] 1.015, Urine Protein NEG, Urine Ketones NEG, Urine Nitrite NEG, Urine Bilirubin NEG, Urine Urobilinogen 0.2, Ur Leukocyte Esterase NEG, Ur Microscopic EXAM NOT REQUIRED, Urine Hemoglobin NEG, Urine Glucose NEG 01/09/17 1537: Urine Osmolality 348, Ur Random Creatinine 54.9, Ur Random Sodium 16 L, Ur Random Potassium 62.6, Fraction Sodium Excret 3.0 H 01/09/17 1531: Magnesium Cancelled, [id number]-Ssaojnoeqlj Pept Cancelled Microbiology 01/10 1450 NASOPHARYN: Influenza Virus A & B Rapid Smear - COMP 01/09 2240 UPPER RESP: Surveillance Culture - COMP 01/09 2240 GI: Surveillance Culture - COMP 01/09 1528 URINE ROUT: Legionella Antigen - COMP 01/09 1528 URINE ROUT: Streptococcus pneumoniae Antigen (M - COMP Recent Imaging Studies: Telemetry tracings were personally reviewed and showed ventricular paced rhythm ICD interrogation shows increased OptiVol trend with no defibrillator shocks noted and > 99% VPacing Echo: CONCLUSIONS Moderately reduced left ventricular systolic function. Severe biatrial enlargement. Dilated right heart. Moderate Pulmonary hypertension. Assessment/Plan Assessment/Plan 1. Nonischemic cardiomyopathy ejection fraction 35% status post BiV-ICD 2. Chronic systolic heart failure 3. Persistent atrial fibrillation on Eliquis 4. Community-acquired pneumonia currently on antibiotics 5. Acute renal insufficiency, her most recent BUN/creatinine from October 2016 were 18 and 0.75 6. Essential hypertension by history 7. Diabetes 8. 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 Thrombocytopenia 10. Hyponatremia 11. 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 Patient appears hemodynamically stable and comfortable on nasal cannula oxygen. She does have significant lower extremity edema without obvious decompensated CHF on chest imaging. I do not think she is currently hypovolemic but she could have a component of mild contrast-induced nephropathy and diuretics are on hold for the time being. AICD interrogation did show increased OptiVol trend over the last few weeks but no evidence of defibrillator firing. She is primarily ventricular paced. Continue on the anticoagulation given her known atrial fibrillation. Antibiotics per the medical team. Santana Mascorro MD [facility] Continue telemetry? No
[2017-01-11 13:44] VITALS: BP 102/60
--- NOTE | 2017-01-11 15:17 | RADIOLOGY REPORT ---
EXAMINATION: XR MODIFIED BARIUM SWALLOW CLINICAL INFORMATION: Aspiration pneumonia. COMPARISON: Chest x-ray 01/09/2017. TECHNIQUE: A modified barium swallow was performed with speech pathologist in attendance. Puree, honey thick, nectar thick, thin barium, and cracker consistencies were given to the patient and the swallowing mechanism was observed fluoroscopically with several spot films taken. FLUOROSCOPY TIME: 3 minutes 11 seconds. FINDINGS: There was slow initiation of the swallowing mechanism. There was pooling of the material in the vallecula using all consistencies. There was spill to the piriform sinuses when swallowing thin barium. There was deep laryngeal penetration without definite aspiration when swallowing thin barium with a straw. IMPRESSION: The study demonstrated deep laryngeal penetration when swallowing thin barium. No definite aspiration was demonstrated. Speech pathologist assessment issued separately.
[2017-01-11 16:25] VITALS: BP 102/70
[2017-01-11 23:46] VITALS: BP 100/70
[2017-01-12 08:00] VITALS: BP 108/60
[2017-01-12 08:00] LABS: ABSOLUTE BASOPHIL COUNT 0 /CUMM (0.0-0.2); ABSOLUTE EOSINOPHIL COUNT 0 /CUMM (0.0-0.7); ABSOLUTE GRANULOCYTE CT 3.3 /CUMM (1.4-6.5); ABSOLUTE LYMPH COUNT 0.6 /CUMM (1.2-3.4); ABSOLUTE MONOCYTE COUNT 0.7 /CUMM (0.10-0.60); BASOPHIL % 0.7 % (0.0-2.0); EOSINOPHIL % 0.9 % (0-5); GRANULOCYTE % 71.3 % (42.2-75.2); HEMATOCRIT 34.2 % (37-47); MEAN CORPUSCULAR VOLUME 94.1 FL (81.0-99.0); MEAN PLATELET VOLUME 12.3 FL (7.4-10.4); RBC DISTRIBUTION WIDTH 16.2 % (11.5-14.5); RED BLOOD CELL CT 3.64 /CUMM (4.20-5.40); WHITE BLOOD CELL COUNT 4.6 /CUMM (4.8-10.8)
--- NOTE | 2017-01-12 08:12 | PN- Housestaff ---
RINKU ANSARI,KAREEM 01/12/17 0812: Subjective Follow-up For: Right middle and lower lobe pneumonia, probably community-acquired pneumonia Acute on chronic lower extremity edema, probably secondary to venous stasis Chronic systolic CHF secondary to non-ischemic cardiomyopathy, AICD in place CATALINO Atrial fibrillation, on Eliquis Thrombocytopenia Obstructive sleep apnea on CPAP Hypothyroidism Type 2 diabetes Complaints: no complaints Tele-Events Since Last Visit: GM hold Subjective: Patient is seen and examined at the bedside. She was not having any active complain. She was looking in mild respiratory distress, although she has no any subjective feeling. She denies of any headache, nausea, vomiting, fever, chest pain, respiratory distress, abdominal pain. Review of Systems Constitutional: Reports: weakness. Denies: no symptoms. Cardiovascular: Reports: edema, orthopena, peripheral edema. Denies: chest pain, palpitations. Respiratory: Reports: orthopnea, short of breath, sputum production. Denies: cough, hemoptysis. Gastrointestinal: Denies: abdominal pain, bloating, constipation, diarrhea, distention, bowel incontinence, melena, nausea. Genitourinary: Denies: dysuria, frequency, hematuria, hesitation, nocturia. Musculoskeletal: Reports: joint swelling. Denies: back pain, gout, joint pain, muscle pain. Skin: Denies: change in skin color, change in hair/nails, dryness. Neurological/Psychological: Denies: anxiety, cognitive dysfunction. Objective Last 24 Hrs of Vital Signs/I&O Vital Signs Date Time Temp Pulse Resp B/P Pulse O2 O2 Flow FiO2 Ox Delivery Rate 01/12 1600 Nasal 2.0L Cannula 01/12 1600 97.4 69 20 110/58 100 Nasal 1.5L Cannula 01/12 1015 72 108/60 01/12 0800 Nasal 2.0L Cannula 01/12 0800 97.0 69 20 108/60 97 Nasal 2.0L Cannula 01/12 0000 Nasal 2.0L Cannula 01/11 2346 97.6 69 18 100/70 97 Room Air 01/11 2150 68 112/70 Intake & Output 01/12 1600 01/12 0800 01/12 0000 Intake Total 970 Output Total 500 300 400 Balance 470 -300 -400 Intake, IV 250 Intake, Oral 720 Output, Urine 500 300 400 Physical Exam General Appearance: Alert, Oriented X3, Cooperative, Mild Distress Skin: No Rashes, No Breakdown HEENT: Atraumatic, PERRLA, EOMI Cardiovascular: irregular, murmur Lungs: bilateral crackles Abdomen: Soft, No Tenderness Neurological: Normal Speech Extremities: bilateral non pitting edema Vascular: cannt be accessed due to edema Current Medications: Current Medications Sig/Stefanie Start time Last Medication Dose Route Stop Time Status Admin Apixaban 5 MG BID 01/09 2200 AC 01/12 PO 1015 Atorvastatin Calcium 10 MG 1700 01/10 1700 AC 01/12 PO 1733 Azithromycin 500 MG DAILY 01/10 1000 AC 01/12 Sodium Chloride 250 ML IV 1014 Carvedilol 12.5 MG BID 01/10 1000 AC 01/12 PO 1015 Ceftriaxone Sodium 1,000 MG DAILY 01/10 1000 AC 01/12 IV 1014 Insulin Aspart 0 AT BEDTIME 01/10 2200 AC SC Insulin Aspart 0 TIDAC 01/10 1700 AC 01/10 SC 1651 Levothyroxine Sodium 44 MCG DAILY 01/10 1000 AC 01/12 IV 1316 Magnesium Chloride 64 MG BID 01/12 1556 AC 01/12 PO 1733 Magnesium Oxide 400 MG BID 01/10 1445 DC 01/11 PO 01/11 2201 2150 Nystatin 1 YONG BID 01/12 1517 AC 01/12 TOP 1733 Pantoprazole Sodium 40 MG DAILY 01/10 1000 AC 01/12 IV 1014 Patient Medication 1 ED ONE ONE 01/12 1130 SD Teaching ED 01/12 1131 Last 24 Hrs of Lab/Yordan Results Last 24 Hrs of Labs/Mics: Laboratory Tests 01/12/17 0646: Anion Gap 4 L, Estimated GFR 53 L, BUN/Creatinine Ratio 33.0 H, Magnesium 1.8 , Fibrinogen Activity 236, Fibrin Degrad Products <10 ug/ml, D-Dimer 260 H, CBC w Diff NO MAN DIFF REQ, RBC 3.64 L, MCV 94.1, MCH 31.0, RDW 16.2 H, MPV 12.3 H, Gran % 71.3, Lymphocytes % 12.3 L, Monocytes % 14.8 H, Eosinophils % 0.9, Basophils % 0.7, Absolute Granulocytes 3.3, Absolute Lymphocytes 0.6 L, Absolute Monocytes 0.7 H, Absolute Eosinophils 0, Absolute Basophils 0, PUBS MCHC 33.0 Assessment/Plan Assessment: 81 yo morbidly obese F with h/o ADRIÁN on CPAP, HTN, remote PE/DVT s/p IVC filter, Afib on eliquis, T2DM, nonischemic CMP with chronic systolic CHF s/p AICD-PPM, moderate MR, pulmonary hypertension, breast and endometrial CA, is brought in from home for c/o weakness, fatigue, worsening LE edema and weight gain over past few weeks was admitted to ICU for hypothermia with temp of 88, resolved with bear-hugger, now temp 97. She is also noted to be fluid overloaded with positive JVD, 3+ bilateral pitting edema, now stable and transfer to telemetry on 01/11/2017. Only 1 time lasix was given because of her kidney functions (cr 1.1 on admssion, was 0.75 2 months ago). Problem list- Acute hypoxic respiratory failure secondary to Right middle and lower lobe pneumonia, probably secondary to community-acquired pneumonia Hypothermia - recovered Diarrhea -recovered Acute on chronic lower extremity edema, probably secondary to venous stasis Atrial fibrillation on Eliquis History of DVT/ PE, on IVC filter and Eliquis Chronic systolic CHF Secondary to non-ischemic cardiomyopathy, AICD in place, [id number]% Pulmonary hypertension (type I and III) CATALINO, probably secondary to IV contrast Thrombocytopenia, according to hematology possibility due to DIC Obstructive sleep apnea, on nasal CPAP. Hypothyroidism Type 2 diabetes mellitus Sigmoid diverticulosis T6/L5 compression fracture history of breast cancer status post 5 years of anastrozole Plan - Acute hypoxic respiratory failure secondary to Right middle and lower lobe pneumonia, probably secondary to community-acquired pneumonia * We will continue ceftriaxone and azithromycin * Needs to have repeat CT in 4-6 weeks to evaluate for resolution of PNA Atrial fibrillation on Eliquis, History of DVT/ PE, on IVC filter and Eliquis, Chronic systolic CHF Secondary to non-ischemic cardiomyopathy, AICD in place, [id number]% * Continue telemetry monitoring * We will start her on half doses of antihypertensive, she was at home. * We added tablet losartan 25 milligrams PO OD * We will continue tablet Eliquis and carvedilol 12.5 BID. CATALINO (previous Cr at 11/03/2016 was 0.75 mg/dl) in the setting of renal failure. * We will start Lasix from 01/13/2017 in half doses * We will regularly monitor her creatinine Thrombocytopenia - in the setting of sepsis and hypothermia: DIC pannel was slightly elevated, which barbara concern. However, elevated PT and PTT and low PLT secondary to inhibition of the coagulation cascade and splenic sequstration, respectively, is known phenomenon in the setting of hypothermia. She also has WBC of 4, which is lower than her previous results and could be explained on the basis of splenic sequestration - Platelet on admission 58, was 161 in Oct 2016 * Hematology consult appreciate * Follow DIC panel Hypervolemic hyponatremia: Clinical evidence of fluid overload and Serm Osm of 290. most posiibly due to CHF decompensation. Type 2 diabetes * HbHA1C -6.0 * We will check blood sugar 3 times a day and bed time, we'll give NovoLog according to the sliding scale GI prophylaxis * We'll continue inj Protonix 40 mgs IV OD Diet: CC2 thick and puree DVT ppx: no mech, Eliquis. Code Status - Full code Problem List: 1. Breast cancer 2. Pneumonia 3. Acute renal failure 4. Hyponatremia Pain Ratin Pain Location: not applicable Pain Goal: Remain pain free Pain Plan: mild, avoid NSAIDs Tomorrow's Labs & Rationales: cbc - f/u for pneumonia and DIC bep -watch for creatinine DVT/Prophylaxis: mechanical, pharmacological APERGIS MIK ANSARI 01/12/17 1234: Attending MD Review Statement Attending Statement Attending MD Statement: examined this patient, discuss w/resident/PA/BEHAVIORAL HEALTH CARE COORDINATOR, agreed w/resident/PA/BEHAVIORAL HEALTH CARE COORDINATOR, reviewed EMR data (avail) Attending Assessment/Plan: 81F PMH ADRIÁN on CPAP, HTN, remote PE/DVT s/p IVC filter, Afib on eliquis, T2DM, nonischemic CMP with chronic systolic CHF s/p AICD-PPM, moderate MR, pulmonary hypertension, breast and endometrial CA admitted to ICU with sepsis secondary to pneumonia with hypothermia, complicated by acute respiratory failure, CATALINO, and fluid overload. Hypothermia, CATALINO resolved. Patient improving on Ceftriaxone and Azithromycin, will continue current management, follow cardiology recommendations for fluid overload.
--- NOTE | 2017-01-12 08:42 | Transfer of Care Summary ---
Hospital Course Course Hospital Course: Pt was admitted to the ICU for hypothermia (with temp of 88), that resolved with bearhugger. The hypothermia is thought to be secondary to sepsis due to pneumonia. Initially thought to have aspiration PNA (hx of difficulty bringing up sputum), she was started on unasyn. She was then changed to ceftriaxone and azithromycin the next morning, for community acquired pneumonia. She was also found to be thrombocytopenic (with normal platelet 2 months ago), thought to be secondary to hypothermia and possible splenic sequestration. We are following DIC panel for that reason. On admission, she had 3+ pitting edema up to the thighs. Due to concerns of sepsis, she only received 1X20 mg IV lasix. Her home lasix has been held since admission in light of CATALINO (hx hx of CKD but cr was 0.75 2 months ago). Her antihypertensive, benicar, was also held. AICD has been interrogated, report in chart. Assessment/Plan: 81 yo morbidly obese F with h/o ADRIÁN on CPAP, HTN, remote PE/DVT s/p IVC filter, Afib on eliquis, T2DM, nonischemic CMP with chronic systolic CHF s/p AICD-PPM, moderate MR, pulmonary hypertension, breast and endometrial CA, is brought in from home for c/o weakness, fatigue, worsening LE edema and weight gain over past few weeks was admitted to ICU for hypothermia with temp of 88, resolved with bear-hugger, now temp 97. She is also noted to be fluid overloaded with positive JVD, 3+ bilateral pitting edema, now stable for transfer to telemetry. Only 1 time lasix was given because of her kidney functions (cr 1.1 on admssion, was 0.75 2 months ago). Admission Labs: WBC 4.6, Platelet 58, Na 128, K 5.3, BUN 46, Creat 1.1 (baseline 0.7), glucose 142, lactic acid 1.9, Ca 10.9, Mag 1.2, AST 39, ALT 58, trop 0.02, proBNP 2220, TSH/ free T4 normal. UA neg. AB.37/40/49/25 on RA. CXR: moderate cardiomegaly, no pneumonia or effusions. CT head chronic ischemic changes. CTA: no PE, right middle and lower lobe groundglass opacities developing pneumonia. CT abd/pelvis: sigmoid diverticulosis, T6 and L5 compression fracture. EKG: paced. Echo (2005): EF 30-35%, pulm htn, mod MR. # Hypothermia (resolved) with presumed sepsis and acute hypoxemic respiratory failure 2/2 community acquired pneumonia (CT showed right middle and lower lobe evolving pneumonia) vs aspiration pneumonia (reports difficulty bringing up sputum) and decompensated systolic congestive heart failure (LE edema, JVD, elevated proBNP) and multifactorila pulmonary HTN (type I and III). Hypothyroidism and adrenal insufficiency, as well as sepsis and CHF were considered to cause hypothermia. Her TSH and T4 level were normal. No evidence of stroke or OK. Am and pm cortisol level is normal. and Elevated proBNP. Low SOFA score and 1 positive SIRS criteria. CTA was suggestive of . - urine for strep pneumo and Legionella negative - quick flu negative - 01/10/17 echocardiogram: Moderately reduced left ventricular systolic function. Severe biatrial enlargement. Dilated right heart. Moderate Pulmonary hypertension - Pacemaker interrogated, no changes made * Initially started on unasyn for possible aspiration PNA, then changed to ceftriaxone and azithromycin. Continue ceftriaxone and azithromycin for community-acquired pneumonia. * Appreciate cardiology input * MBS and speech therapy, advance diet as per their recc * Stable for tele transfer * Needs to have repeat CT in 4-6 weeks to evaluate for resolution of PNA # CATALINO (previous Cr at 11/03/2016 was 0.75 mg/dl) in the setting of renal failure. * Lasix as per cardiology * Nephrology consult in case of persistent/ worsening renal function. # Thrombocytopenia in the setting of sepsis and hypothermia: DIC pannel was slightly elevated, which barbara concern. However, elevated PT and PTT and low PLT secondary to inhibition of the coagulation cascade and splenic sequstration, respectively, is known phenomenon in the setting of hypothermia. She also has WBC of 4, which is lower than her previous results and could be explained on the basis of splenic sequestration - Platelet on admission 58, was 161 in Oct 2016 * Hematology consult appreciate * Follow DIC panel # Hypervolemic hyponatremia: Clinical evidence of fluid overload and Serm Osm of 290. most posiibly due to CHF decompensation. # Afib * Continue eliquis and carvedilol 12.5 BID. # DM type II - Uncontrolled. Elevated HA1C * accucheck and novolog ss # GI ppx * On IV Protonix. Diet: CC2 chopped and puree DVT ppx: no mech, Eliquis Full code Son Justin is the POA Consults: cardio, ST, hematology, PT Labs: DIC panel for elevated fsp and fibrinogen, cbc for thrombocytopenia bep, mag for electrolyte abnormality, catalino Attending MD Review Statement Documenting Attending: Salome VELASQUEZ MD
--- NOTE | 2017-01-12 08:44 | PN- Oncology ---
Subjective Subjective: She denies any new symptoms. Diarrhea is improved. Breathing is stable. Review of Systems: Constitutional: Denies: chills, fever. Cardiovascular: Denies: chest pain. Gastrointestinal: Reports: diarrhea. Denies: abdominal pain. All Other Systems: Reviewed and Negative Objective Vital Signs and I&Os Vital Signs Date Time Temp Pulse Resp B/P Pulse O2 O2 Flow FiO2 Ox Delivery Rate 01/12 0800 97.0 69 20 108/60 97 Nasal 2.0L Cannula 01/12 0000 Nasal 2.0L Cannula 01/11 2346 97.6 69 18 100/70 97 Room Air 01/11 2150 68 112/70 01/11 1625 97.4 70 20 102/70 99 Nasal 1.0L Cannula 01/11 1600 Nasal 2.0L Cannula 01/11 1404 Nasal 1.0L Cannula 01/11 1344 97.1 80 20 102/60 99 Nasal 1.0L Cannula 01/11 1023 69 104/60 Intake & Output 01/12 1600 01/12 0800 01/12 0000 01/11 1600 01/11 0800 01/11 0000 Intake Total 240 180 680 Output Total 300 400 450 400 550 Balance -300 -400 -210 -220 130 Intake, IV 200 Intake, Oral 240 180 480 Output, Urine 300 400 450 400 550 Patient 119.833 kg Weight Physical Exam: General Appearance: alert, awake, comfortable Respiratory: chest non-tender, no respiratory distress, quiet respiration, crackles (bases), on 2L NC Cardiovascular: regular rate/rhythm, edema Abdomen: normal bowel sounds, soft, non-tender Extremities: edematous with hyperpigmentation and erythema Neurologic/Psychiatric: awake, alert Skin: intact Current Medications: Current Medications Sig/Stefanie Start time Last Medication Dose Route Stop Time Status Admin Apixaban 5 MG BID 01/09 2200 AC 01/11 PO 2150 Atorvastatin Calcium 10 MG 1700 01/10 1700 AC 01/11 PO 165 Azithromycin 500 MG DAILY 01/10 1000 AC 01/11 Sodium Chloride 250 ML IV 1029 Carvedilol 12.5 MG BID 01/10 1000 AC 01/11 PO 2150 Ceftriaxone Sodium 1,000 MG DAILY 01/10 1000 AC 01/11 IV 1019 Insulin Aspart 0 AT BEDTIME 01/10 2200 AC SC Insulin Aspart 0 TIDAC 01/10 1700 AC 01/10 SC 1651 Levothyroxine Sodium 44 MCG DAILY 01/10 1000 AC 01/11 IV 1019 Magnesium Oxide 400 MG BID 01/10 1445 DC 01/11 PO 01/11 2201 2150 Pantoprazole Sodium 40 MG DAILY 01/10 1000 AC 01/11 IV 1019 Results Last 24 Hours of Lab Results: Laboratory Tests 01/12 0646 Chemistry Sodium (137 - 145 mmol/L) 136 L Potassium (3.5 - 5.1 mmol/L) 4.6 Chloride (98 - 107 mmol/L) 97 L Carbon Dioxide (22 - 30 mmol/L) 35 H Anion Gap (5 - 16) 4 L BUN (7 - 17 mg/dL) 33 H Creatinine (0.5 - 1.0 mg/dL) 1.0 Estimated GFR (>60 ml/min) 53 L BUN/Creatinine Ratio (7 - 25 %) 33.0 H Magnesium (1.6 - 2.3 mg/dL) 1.8 Coagulation Fibrinogen Activity (200 - 393 MG/DL) 236 Fibrin Degrad Products (< 10 ug/ml) <10 ug/ml D-Dimer (70 - 232 ng/ml) 260 H Hematology CBC w Diff Pending WBC Pending RBC Pending Hgb Pending Hct Pending MCV Pending MCH Pending RDW Pending Plt Count Pending MPV Pending Gran % Pending Lymphocytes % Pending Monocytes % Pending Eosinophils % Pending Basophils % Pending Absolute Granulocytes Pending Absolute Lymphocytes Pending Absolute Monocytes Pending Absolute Eosinophils Pending Absolute Basophils Pending PUBS MCHC Pending Assessment/Plan Assessment/Recommendations: Ms. Moreno is a 81-year-old female with history of breast cancer status post 5 years of anastrozole and last seen by Dr. Osborne in 02/2015 who presented to the hospital with hypothermia, diffuse weakness, and thrombocytopenia. She had CT scan demonstrating possible pneumonia. She has been started on IV antibiotics with Unasyn and azithromycin. DIC panel has normalized. CBC is pending today. She has improved clinically. Recommendations: 1. Monitor CBC daily 2. Continue antibiotic for CAP as per primary Please call [phone] with any questions. Problem List: 1. Pneumonia 2. Breast cancer 3. Thrombocytopenia 4. Hypothermia
--- NOTE | 2017-01-12 08:47 | PN- Cardiology ---
Subjective Subjective: Patient is being taken off telemetry. Feeling weak. No acute problems. Objective Vital Signs and I&Os Vital Signs Date Time Temp Pulse Resp B/P Pulse O2 O2 Flow FiO2 Ox Delivery Rate 01/12 0800 97.0 69 20 108/60 97 Nasal 2.0L Cannula 01/12 0000 Nasal 2.0L Cannula 01/11 2346 97.6 69 18 100/70 97 Room Air 01/11 2150 68 112/70 01/11 1625 97.4 70 20 102/70 99 Nasal 1.0L Cannula 01/11 1600 Nasal 2.0L Cannula 01/11 1404 Nasal 1.0L Cannula 01/11 1344 97.1 80 20 102/60 99 Nasal 1.0L Cannula 01/11 1023 69 104/60 Intake & Output 01/12 1600 01/12 0800 01/12 0000 01/11 1600 01/11 0800 01/11 0000 Intake Total 240 180 680 Output Total 300 400 450 400 550 Balance -300 -400 -210 -220 130 Intake, IV 200 Intake, Oral 240 180 480 Output, Urine 300 400 450 400 550 Patient 264 lb Weight Physical Exam: Gen. exam patient comfortable in bed. Appears weak Head normocephalic atraumatic Eyes sclera anicteric conjunctiva showed no pallor extraocular muscles were normal [place] neck no jugular venous distention no thyroid masses no palpable nodes Chest lungs revealed a few areas of bronchial breathing in the lower lobe left lower lobe. Heart regular rhythm grade 2/6 systolic murmur. Abdomen soft nontender no organomegaly Extremities Venodyne boots. Neurological no gross motor or sensory deficits Current Medications: Current Medications Sig/Stefanie Start time Last Medication Dose Route Stop Time Status Admin Apixaban 5 MG BID 01/090 AC 01/11 PO 2150 Atorvastatin Calcium 10 MG 1700 01/10 1700 AC 01/11 PO 1651 Azithromycin 500 MG DAILY 01/10 1000 AC 01/11 Sodium Chloride 250 ML IV 1029 Carvedilol 12.5 MG BID 01/10 1000 AC 01/11 PO 2150 Ceftriaxone Sodium 1,000 MG DAILY 01/10 1000 AC 01/11 IV 1019 Insulin Aspart 0 AT BEDTIME 01/10 2200 AC SC Insulin Aspart 0 TIDAC 01/10 1700 AC 01/10 SC 1651 Levothyroxine Sodium 44 MCG DAILY 01/10 1000 AC 01/11 IV 1019 Magnesium Oxide 400 MG BID 01/10 1445 DC 01/11 PO 01/11 2201 2150 Pantoprazole Sodium 40 MG DAILY 01/10 1000 AC 01/11 IV 1019 Results Last 48 Hrs of Labs/Mics: Laboratory Tests 01/12/17 0646: Anion Gap 4 L, Estimated GFR 53 L, BUN/Creatinine Ratio 33.0 H, Magnesium 1.8 , Fibrinogen Activity 236, Fibrin Degrad Products <10 ug/ml, D-Dimer 260 H, CBC w Diff Pending, WBC Pending, RBC Pending, Hgb Pending, Hct Pending, MCV Pending, MCH Pending, RDW Pending, Plt Count Pending, MPV Pending, Gran % Pending, Lymphocytes % Pending, Monocytes % Pending, Eosinophils % Pending, Basophils % Pending, Absolute Granulocytes Pending, Absolute Lymphocytes Pending, Absolute Monocytes Pending, Absolute Eosinophils Pending, Absolute Basophils Pending, PUBS MCHC Pending 01/11/17 0505: Anion Gap 8, Estimated GFR 48 L, Glucose 79, Calcium 9.8, Phosphorus 4.4, Magnesium 1.8, Total Bilirubin 0.5, AST 29, ALT 50, Albumin 3.4 L, PT 16.2 H, INR 1.55 H, Fibrinogen Activity 185 L, Fibrin Degrad Products >10 but < 40 ug/ ml H, D-Dimer 285 H, CBC w Diff MAN DIFF ORDERED, RBC 3.81 L, MCV 94.0, MCH 30.6, RDW 16.0 H, MPV 12.8 H, Gran % 67.6, Lymphocytes % 16.0 L, Monocytes % 15.4 H, Eosinophils % 0.7, Basophils % 0.3, Absolute Granulocytes 2.7, Segmented Neutrophils 71, Absolute Lymphocytes 0.6 L, Lymphocytes 13 L, Monocytes 15 H, Absolute Monocytes 0.6, Eosinophils 1, Absolute Eosinophils 0, Absolute Basophils 0, Nucleated RBCs 5 H, Platelet Estimate DECREASED, Polychromasia 1+, Hypochromic-Microcytic 1+, Poikilocytosis 1+, Basophilic Stippling SLIGHT, Ovalocytes 1+, Elliptocytes FEW, PUBS MCHC 32.6 L, Fld Total RBCs Counted 100 01/10/17 1400: Sodium Cancelled, Potassium Cancelled, Chloride Cancelled, Carbon Dioxide Cancelled, Anion Gap Cancelled, BUN Cancelled, Creatinine Cancelled, Glucose Cancelled, Calcium Cancelled, Phosphorus Cancelled, Magnesium Cancelled, Total Bilirubin Cancelled, AST Cancelled, ALT Cancelled, Albumin Cancelled, CBC w Diff Cancelled, WBC Cancelled, RBC Cancelled, Hgb Cancelled, Hct Cancelled, MCV Cancelled, MCH Cancelled, RDW Cancelled, Plt Count Cancelled, MPV Cancelled, PUBS MCHC Cancelled 01/10/17 1201: Anion Gap 13, Estimated GFR 53 L, Glucose 77, Calcium 8.7, Phosphorus 3.7, Magnesium 1.3 L, Total Bilirubin 0.5, AST 27, ALT 48, Albumin 3.1 L Microbiology 01/10 1450 NASOPHARYN: Influenza Virus A & B Rapid Smear - COMP Assessment/Plan Assessment/Plan In summary this 81-year-old female is the following problems 1. Nonischemic cardiomyopathy ejection fraction 35% status post BiV-ICD 2. Chronic systolic heart failure 3. Persistent atrial fibrillation on Eliquis 4. Community-acquired pneumonia currently on antibiotics 5. Acute renal insufficiency, her most recent BUN/creatinine from October 2016 were 18 and 0.75. This is now improved 6. Essential hypertension by history 7. Diabetes 8. 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 Thrombocytopenia 10. Hyponatremia now improved 11. 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 X I would restart her VANNESSA inhibitor's that she was on as an outpatient but at half the outpatient dose for now. After 24 hours we could restart her oral diuretics at half the dose as an outpatient , both these medications can be transitioned to her usual dose after 48-72 hours Continue telemetry? No
[2017-01-12 09:05] LABS: PLATELET COUNT 60 /CUMM (130-400)
[2017-01-12 16:00] VITALS: BP 110/58
[2017-01-13 02:15] VITALS: BP 116/72
[2017-01-13 07:51] LABS: ABSOLUTE BASOPHIL COUNT 0 /CUMM (0.0-0.2); ABSOLUTE EOSINOPHIL COUNT 0.1 /CUMM (0.0-0.7); ABSOLUTE GRANULOCYTE CT 4.6 /CUMM (1.4-6.5); ABSOLUTE LYMPH COUNT 0.6 /CUMM (1.2-3.4); ABSOLUTE MONOCYTE COUNT 0.6 /CUMM (0.10-0.60); BASOPHIL % 0.6 % (0.0-2.0); EOSINOPHIL % 1.7 % (0-5); GRANULOCYTE % 77.1 % (42.2-75.2); HEMATOCRIT 34.8 % (37-47); MEAN CORPUSCULAR HGB 31.1 PG (27.0-31.0); MEAN CORPUSCULAR HGB CONC 32.5 G/DL (33.0-37.0); MEAN CORPUSCULAR VOLUME 95.6 FL (81.0-99.0); MEAN PLATELET VOLUME 11.7 FL (7.4-10.4); PLATELET COUNT 63 /CUMM (130-400); RBC DISTRIBUTION WIDTH 17.1 % (11.5-14.5); RED BLOOD CELL CT 3.64 /CUMM (4.20-5.40)
[2017-01-13 08:20] VITALS: BP 130/70
--- NOTE | 2017-01-13 08:58 | PN- Housestaff ---
RINKU ANSARI,KAREEM 01/13/17 0858: Subjective Follow-up For: Right middle and lower lobe pneumonia, probably community-acquired pneumonia Acute on chronic lower extremity edema, probably secondary to venous stasis Chronic systolic CHF secondary to non-ischemic cardiomyopathy, AICD in place CATALINO Atrial fibrillation, on Eliquis Thrombocytopenia Obstructive sleep apnea on CPAP Hypothyroidism Type 2 diabetes Complaints: no complaints Tele-Events Since Last Visit: GM hold Subjective: Patient is seen and examined at the bedside. She was not having any active complain. She was looking in mild respiratory distress, although she has no any subjective feeling. She denies of any headache, nausea, vomiting, fever, chest pain, respiratory distress, abdominal pain. Review of Systems Constitutional: Reports: weakness. Cardiovascular: Reports: edema, orthopena, palpitations, peripheral edema. Denies: chest pain. Respiratory: Reports: orthopnea, short of breath. Denies: cough, hemoptysis. Gastrointestinal: Denies: abdominal pain, bloating, constipation, diarrhea, distention. Genitourinary: Denies: discharge, dysuria, frequency, hematuria. Musculoskeletal: Reports: joint swelling. Denies: back pain, gout, joint pain. Skin: Denies: no symptoms. Neurological/Psychological: Denies: no symptoms. Objective Last 24 Hrs of Vital Signs/I&O Vital Signs Date Time Temp Pulse Resp B/P Pulse O2 O2 Flow FiO2 Ox Delivery Rate 01/13 1002 69 130/70 01/13 0820 97.7 69 18 130/70 100 Nasal 2.0L Cannula 01/13 0800 Nasal 2.0L Cannula 01/13 0215 97.6 69 20 116/72 100 Nasal 2.0L Cannula 01/13 0000 Nasal 2.0L Cannula 01/12 2154 84 124/80 01/12 1600 Nasal 2.0L Cannula 01/12 1600 97.4 69 20 110/58 100 Nasal 1.5L Cannula Intake & Output 01/13 1600 01/13 0800 01/13 0000 Intake Total 460 Output Total 300 1999 Balance -300 -1540 Intake, IV 10 Intake, Oral 450 Number 1 2 Bowel Movements Output, Urine 300 1999 Patient 87.543 kg Weight Physical Exam General Appearance: Alert, Oriented X3, Cooperative, Mild Distress Cardiovascular: irregular, murmur Lungs: decreased air entry in bases and mild crepts in middle of the lung Abdomen: Soft, No Tenderness Neurological: Normal Speech Extremities: bilateral lower extremeries non pitting edema. Vascular: cannt feel due to edema Assessment/Plan Assessment: 81 yo morbidly obese F with h/o ADRIÁN on CPAP, HTN, remote PE/DVT s/p IVC filter, Afib on eliquis, T2DM, nonischemic CMP with chronic systolic CHF s/p AICD-PPM, moderate MR, pulmonary hypertension, breast and endometrial CA, is brought in from home for c/o weakness, fatigue, worsening LE edema and weight gain over past few weeks was admitted to ICU for hypothermia with temp of 88, resolved with bear-hugger, now temp 97. She is also noted to be fluid overloaded with positive JVD, 3+ bilateral pitting edema, now stable and transfer to telemetry on 01/11/2017. Only 1 time lasix was given because of her kidney functions (cr 1.1 on admssion, was 0.75 2 months ago). Problem list- Acute hypoxic respiratory failure secondary to Right middle and lower lobe pneumonia, probably secondary to community-acquired pneumonia Hypothermia - recovered Diarrhea -recovered Acute on chronic lower extremity edema, probably secondary to venous stasis Atrial fibrillation on Eliquis History of DVT/ PE, on IVC filter and Eliquis Chronic systolic CHF Secondary to non-ischemic cardiomyopathy, AICD in place, [id number]% Pulmonary hypertension (type I and III) CATALINO, probably secondary to IV contrast Thrombocytopenia, according to hematology possibility due to DIC Obstructive sleep apnea, on nasal CPAP. Hypothyroidism Type 2 diabetes mellitus Sigmoid diverticulosis T6/L5 compression fracture history of breast cancer status post 5 years of anastrozole Plan - Discharge Today Acute hypoxic respiratory failure secondary to Right middle and lower lobe pneumonia, probably secondary to community-acquired pneumonia * Stop ceftriaxone and azithromycin, start on tablet Augmentin 875 milligrams twice a day for total 10 days * Advise to continue CPAP in the night as before * Advised to follow-up with the payroll coordinator for further management of sleep apnea/COPD/pulmonary hypertension * Needs to have repeat CT in 4-6 weeks to evaluate for resolution of PNA Atrial fibrillation on Eliquis, History of DVT/ PE, on IVC filter and Eliquis, Chronic systolic CHF Secondary to non-ischemic cardiomyopathy, AICD in place, [id number]% * stop telemetry monitoring * We will start her on half doses of antihypertensive, she was at home. * We added tablet losartan 25 milligrams PO OD, and tablet furosemide 20 milligrams twice a day. * We will continue tablet Eliquis and carvedilol 12.5 BID. * Advised to follow-up with the [facility] for further management of the CHF/ atrial fibrillation CATALINO (previous Cr at 11/03/2016 was 0.75 mg/dl) in the setting of renal failure. * We started tablet furosemide 20 milligrams twice a day. * We will regularly monitor her creatinine * Advised to follow-up with her primary care provider for further evaluation of kidney function Thrombocytopenia - in the setting of sepsis and hypothermia: DIC pannel was slightly elevated, which barbara concern. However, elevated PT and PTT and low PLT secondary to inhibition of the coagulation cascade and splenic sequstration, respectively, is known phenomenon in the setting of hypothermia. She also has WBC of 4, which is lower than her previous results and could be explained on the basis of splenic sequestration - Platelet on admission 58, was 161 in Oct 2016 * Platelet count increased to 63,000. We will continue to monitor it. * Advised to follow-up with PCP for further management of thrombocytopenia. Hypervolemic hyponatremia: Clinical evidence of fluid overload and Serm Osm of 290. most posiibly due to CHF decompensation. Type 2 diabetes * HbHA1C -6.0 * We will restart her on home medication-metformin * Advised to follow-up with PCP for further management GI prophylaxis * Stop inj Protonix 40 mgs IV OD, and started her on cap omeprazole Diet: CC2 thick and puree DVT ppx: no mech, Eliquis. Code Status - Full code Problem List: 1. CHF (congestive heart failure) 2. Breast cancer 3. Aspiration pneumonia 4. Acute renal failure 5. Thrombocytopenia Pain Ratin Pain Location: Not applicable Pain Goal: Remain pain free Pain Plan: Avoid NSAIDs Tomorrow's Labs & Rationales: Not acquired, as patient is discharged DVT/Prophylaxis: mechanical, pharmacological MIK VINCENT MD 01/13/17 1031: Attending MD Review Statement Attending Statement Attending Statement: examined this patient, discuss w/resident/PA/SCANNING CLERK, agreed w/resident/PA/SCANNING CLERK, reviewed EMR data (avail) Attending Assessment/Plan: 81F PMH ADRIÁN on CPAP, HTN, remote PE/DVT s/p IVC filter, Afib on eliquis, T2DM, nonischemic CMP with chronic systolic CHF s/p AICD-PPM, moderate MR, pulmonary hypertension, breast and endometrial CA admitted to ICU with sepsis secondary to pneumonia with hypothermia, complicated by acute respiratory failure, CATALINO, and fluid overload. Hypothermia, CATALINO resolved. Patient is back to baseline. Saturating well on 2L, lungs significantly improved, dyspnea resolved. Patient is stable for transfer to SNF. Will continue home medications, Lasix 20mg BID, Augmentin to complete course, follow up with outpatient cardiology and pulmonary, will continue CPAP at night.
--- NOTE | 2017-01-13 10:05 | Discharge Summary ---
Visit Information Visit Dates Admission Date: 01/09/17 Discharge Date: 01/13/17 Hospital Course Course Attending Physician[facility] Primary Care Physician: NAVYA ANSARI,[facility] Course: Mrs. Bishop is an 81 year old female w a PMH of ADRIÁN on CPAP, HTN, remote PE/DVT s/p IVC filter, Afib on eliquis, T2DM, nonischemic cardiomyopathy with chronic systolic CHF s/p AICD-PPM, moderate MR, pulmonary hypertension, breast and endometrial CA, who was brought in from home for c/o weakness, fatigue, worsening LE edema a/w weight gain over past few weeks. She was was admitted to ICU for hypothermia with temp of 88, that resolved with bearhugger. The hypothermia was thought to be secondary to sepsis due to pneumonia. Initially thought to have aspiration PNA (hx of difficulty bringing up sputum), and she was started on unasyn, which was changed to ceftriaxone and azithromycin the next morning, for community acquired pneumonia. She was also found to be thrombocytopenic (with normal platelet 2 months ago), thought to be secondary to hypothermia and possible splenic sequestration. PT/ INR was elevated but shes on eliquis, platelet count down and fibrinogen level was slightly low 186. Fibrinogen eventually returned to normal levels and platelets slowly trended up to the low 60s. Additionally on admission, she had 3+ pitting edema up to the thighs. Due to concerns of sepsis, she only received 1X20 mg IV lasix. Her home lasix was initially held due to CATALINO, which resolved. Her antihypertensive, benicar, was initially also held. AICD has been interrogated, report in chart. Admission Labs: WBC 4.6, Platelet 58, Na 128, K 5.3, BUN 46, Creat 1.1 (baseline 0.7), glucose 142, lactic acid 1.9, Ca 10.9, Mag 1.2, AST 39, ALT 58, trop 0.02, proBNP 2220, TSH/ free T4 normal. UA neg. AB.37/40/49/25 on RA. CXR: moderate cardiomegaly, no pneumonia or effusions. CT head chronic ischemic changes. CTA: no PE, right middle and lower lobe groundglass opacities developing pneumonia. CT abd/pelvis: sigmoid diverticulosis, T6 and L5 compression fracture. EKG: paced. Echo (2005): EF 30-35%, pulm htn, mod MR. Problems managed in the hospital # Hypothermia * Resolved * Presumed to be due to sepsis due to community acquired PNA (CT showed right middle and lower lobe evolving pneumonia). * Initially treated with IV ABx, and we will transition to Augmentin 875 to complete a total of 7 days of total ABx therapy (pt should be afebrile for at least 48 hours prior to discontinuing ABx) * urine for strep pneumo and Legionella negative * Rapid flu negative * She needs to have repeat CT in 4-6 weeks to evaluate for resolution of PNA CATALINO * Resolved. * Continue lasix 20 BID (home dose) Thrombocytopenia * A hematology consult was placed and it was felt that in light of sepsis and hypothermia: DIC pannel was slightly elevated, which barbara concern. However, elevated PT and PTT and low PLT secondary to inhibition of the coagulation cascade and splenic sequstration, respectively, is known phenomenon in the setting of hypothermia - Please see above * Platelet on admission 58 came up to the low-mid 60s (was 161 in Oct 2016) * repeat DIC panels showed resolution of DIC. * Repeat CBC in 1 week to monitor resolution. Atrial fibrillation * Continue eliquis and carvedilol 12.5 BID. DM type II * Pt was changed to a novolog in patient sliding scale. * Plan to resume metforming in the outpatient setting with regular HbA1C and accucheks * Adjust meds accordingly GI ppx * On IV Protonix. CHF * 01/10/17 echocardiogram: Moderately reduced left ventricular systolic function. Severe biatrial enlargement. Dilated right heart. Moderate Pulmonary hypertension * Pacemaker interrogated, no changes made * Review of the patients meds show she filled furosemide 40mg BID, but given her CATALINO, she was changed to 20mg BID. Please transition her back to her usual dose after 48-72 hours Sleep Apnea * She should be continued on her home CPAP FULL CODE CHOPPED FOOD/NECTAR LIQUID ELIQUIS FOR DVT ppx Allergies: Coded Allergies: alendronate sodium (RASH 01/09/17) Significant Procedures: KEHINDE BISHOP Age: 81 : 1935 Gender: F Exam Date: 01/10/2017 09:05 Exam Location: [facility] Ht (in): 67 Wt (lb): 263 BSA: 2.43 BP: 113 / 64 Ordering Physician: ALTAGRACIA ANDRADE MD Referring Physician: ALTAGRACIA ANDRADE MD Technologist: Bronson Everett [facility] Room Number: 109 Indications: Heart failure, unspecified Rhythm: Atrial fibrillation Technical Quality: fair FINDINGS Left Ventricle Mild left ventricular dilatation. Mildly abnormal left ventricular ejection fraction estimated at 35-40%. Flattened septum in systole consistent with right ventricle pressure overload. Left ventricular wall thickness mildly increased. Right Ventricle Mild right ventricular dilatation. Catheter/pacemaker wire in the right ventricular cavity. Right Atrium Moderate to severe right atrial dilatation. Left Atrium Moderate to severe left atrial dilatation. Mitral Valve Mild mitral annular calcification. Moderate mitral regurgitation. Aortic Valve Diffuse thickening (sclerosis) of the aortic valve cusps without reduced excursion. Tricuspid Valve Tricuspid valve is normal in structure and function. Moderate-to- severe tricuspid regurgitation. Right ventricular systolic pressure estimated to be elevated at 40 mmHg. Pulmonic Valve Pulmonic valve not well visualized, grossly normal. Pericardium No pericardial effusion. Great Vessels Normal size aortic root. CONCLUSIONS Moderately reduced left ventricular systolic function. Severe biatrial enlargement. Dilated right heart. Moderate Pulmonary hypertension. SERVICE DATE: 01/09/17 EXAM TYPE: CAT - CT ABD & PELVIS W IV CONTRAST EXAMINATION: CT ABDOMEN AND PELVIS WITH CONTRAST CLINICAL INFORMATION: Abdominal pain. Hypoxia. COMPARISON: None. TECHNIQUE: Contiguous axial thin section helical images of the abdomen and pelvis were performed following the administration of 95 mL of intravenous Optiray 320. The data set was reformatted in the coronal and sagittal planes and reviewed on an independent workstation. DLP: 1292 mGy-cm. FINDINGS: There is right middle and lower lobe airspace disease concerning for pneumonia. The heart is enlarged. The liver is of normal size and diffuse decreased attenuation without focal lesions nor intrahepatic biliary ductal dilation. A normal gallbladder is identified. There is no wall thickening or discernible pericholecystic fluid. The spleen, pancreas, adrenal glands are unremarkable. Both kidneys are of normal size and attenuation without hydronephrosis or nephrolithiasis. Following the administration of IV contrast, prompt symmetric nephrograms are displayed. There is a pmjlq-nu-wrcnhbxn amount of free fluid within the abdomen.. There is neither mesenteric nor retroperitoneal lymphadenopathy. An IVC filter is in place. There is sigmoid diverticulosis without evidence of diverticulitis. Otherwise, unremarkable unopacified loops of small and large bowel are identified. There is a oskvr-vy-rbpiaexy amount of pelvic free fluid. The urinary bladder is unremarkable. There is neither pelvic nor inguinal lymphadenopathy. Bone windows: There is a compression fracture at L5 with evidence of prior vertebroplasty. The lumbar vertebra are in normal alignment. There is a T6 vertebral compression fracture. IMPRESSION: Sigmoid diverticulosis without evidence of diverticulitis. Ydqew-tf-saucidcs amount of free fluid within the abdomen and pelvis. Right middle and lower lobe groundglass opacification concerning for pneumonia. Recommendation is for a followup chest series to be obtained following treatment and/or resolution of symptoms to assure resolution of this appearance. SERVICE DATE: 01/09/17 EXAM TYPE: CAT - CTA CHEST-PULMONARY EMBOLISM EXAMINATION: CT PULMONARY EMBOLISM STUDY CLINICAL INFORMATION: Hypoxia. COMPARISON: 01/20/2015.. TECHNIQUE: Contiguous helical images of the chest were obtained following the administration of IV contrast. Multiplanar reconstructions were performed. MIPS were obtained and reviewed. DLP: 1794 mGy-cm. CONTRAST: 95 mL of Optiray 350 were administered without incident. FINDINGS: The heart is enlarged. There is a small pericardial effusion within the superior pericardial recess. The great vessels are unremarkable. Specifically, there are no pulmonary arterial filling defects. There are no chest wall masses. There is patchy groundglass opacification within the right middle lobe. There is also patchy right lower lobe airspace disease. The upper abdomen is evaluated on the same day abdominal and pelvic CT. There is a midthoracic spine which 8 vertebral body compression fracture. IMPRESSION: No CT evidence for pulmonary embolism. Cardiomegaly without evidence of vascular congestion. Right middle and lower lobe groundglass opacification concerning for developing pneumonia. Recommendation is for a followup chest series to be obtained following treatment and/or resolution of symptoms to assure resolution of this appearance. Please refer to the same day abdominal and pelvic CT report for evaluation of the abdomen. Disposition Summary Disposition Principal Diagnosis: Sepsis 2/2 community acquired PNA Additional Diagnosis: Atrial fibrillation CHF Hypothyoidism Discharge Disposition: other general hospital Discharge Instructions General Discharge Information Code Status: Full Code Patient's Diet: Chopped/nectar Patient's Activity: as tolerated Follow-Up Instructions/Appts: -Please follow up with your PCP with in a week of discharge. -Please follow up with your credit investigator with in a week of discharge -Please follow up with your oncologist with in a week of discharge -Needs to have repeat CT in 4-6 weeks to evaluate for resolution of PNA. -We changed your lasix from 40mg daily to 20 mg twice/day. It should be increased to normal doses in next couple of days. Medications at Discharge Discharge Medications: Stop taking the following medications: Potassium Chloride (Potassium Chloride) 20 MEQ TAB.ER.PRT ORAL TWICE DAILY Furosemide (Furosemide) 40 MG TABLET ORAL TWICE DAILY Continue taking these medications: Metformin HCl (Glucophage) 1,000 MG TABLET 1 Tablet ORAL TWICE DAILY Comments: NOT GIVEN IN THE HOSPITAL Carvedilol (Coreg) 12.5 MG TABLET 1 Tablet ORAL TWICE DAILY Comments: Last Taken: 01/13/17 Time: 10 AM Levothyroxine Sodium (Levoxyl) 88 MCG TABLET 1 Tablet ORAL DAILY BEFORE BREAKFAST Comments: Last Taken: 01/13/17 Time: 10 AM Atorvastatin Calcium (Lipitor) 10 MG TABLET 1 Tablet ORAL DAILY Comments: Last Taken: 01/12/17 Time: 530 PM Olmesartan Medoxomil (Benicar) 20 MG TABLET 1 Tablet ORAL DAILY Comments: NOT GIVEN IN THE HOSPITAL Calcium Carbonate/Vitamin D3 (Os-Uzair 500+D3 Caplet) 500 MG-200 TABLET 1 Tablet ORAL DAILY Comments: NOT GIVEN IN THE HOSPITAL Multivitamin (Multi-Day Vitamins) 1 EACH TABLET 1 Tablet ORAL DAILY Comments: NOT GIVEN IN THE HOSPITAL Apixaban (Eliquis) 5 MG TABLET 1 Tablet ORAL TWICE DAILY Comments: Last Taken: 01/13/17 Time: 10 AM Start taking the following new medications: Furosemide (Furosemide) 20 MG TABLET 20 Milligram ORAL 7:30AM & 4:30PM Qty = 30 No Refills Comments: Last Taken: Time: Amoxicillin/Clavulanate Potass (Amox-Clav 875-125 MG Tablet) 875 MG-125 MG TABLET 875 Milligram ORAL EVERY 12 HOURS Qty = 14 No Refills Comments: Last Taken: Time: Copies To: CARIDAD ANSARI,PHOEBE Arshad; NAVYA ANSARI,Salma ANGEL
--- NOTE | 2017-01-13 10:14 | Patient Discharge Instructions ---
Discharge Instructions General Discharge Information You were seen/treated for: pneumonia probably secondary to aspiration. Special Instructions: Please follow up with your PCP with in a week of discharge. 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 We added your antihypertensive medication and diuretics in half doses, it should be increased to normal doses in next couple of days. Diet Recommended Diet: Heart Healthy Activity Full Activity/No Limits: No (as tolerated) Acute Coronary Syndrome Inclusion Criteria At DC or during hospital stay patient has or had the following: ACS DIAGNOSIS No Discharge Core Measures Meds if any: Prescribed or Continued at Discharge Meds if any: NOT Prescribed or Continued at Discharge Congestive Heart Failure Inclusion Criteria At DC or during hospital stay patient has or had the following: CHF DIAGNOSIS No Discharge Core Measures Meds if any: Prescribed or Continued at Discharge Meds if any: NOT Prescribed or Continued at Discharge Cerebrovascular accident Inclusion Criteria At DC or during hospital stay patient has or had the following: CVA/TIA Diagnosis No Discharge Core Measures Meds if any: Prescribed or Continued at Discharge Meds if any: NOT Prescribed or Continued at Discharge Venous thromboembolism Inclusion Criteria VTE Diagnosis No VTE Type NONE VTE Confirmed by (Test) NONE Discharge Core Measures - Per Current guidelines, there needs to be overlap - treatment for the first 5 days of Warfarin therapy. - If discharged on Warfarin prior to 5 days of - overlap therapy, the patient will need to be - assessed for post discharge needs including - *Post discharge parental anticoagulation - *Warfarin and/or parental anticoagulation education - *Follow up date to check INR post discharge At least 5 days overlap therapy as Inpatient No Meds if any: Prescribed or Continued at Discharge Warfarin No Note: Overlap Therapy is Warfarin and Anticoagulant Meds if any: NOT Prescribed or Continued at Discharge
[2017-01-13] MEDS ORDERED: LASIX20 M1 PO (10:17)
[2017-01-13] MEDS ORDERED: FUROSEMIDE20 M1 PO (10:22)
[2017-01-13] MEDS ORDERED: AMOX-CLAV 875-1 EACH PO (10:29)
--- NOTE | 2017-01-13 11:34 | PN- Oncology ---
Subjective Subjective: She has some abdominal pain. She reports some diarrhea still. She has no fever or chills. Review of Systems: Constitutional: Denies: chills, fever. Cardiovascular: Denies: chest pain. Gastrointestinal: Reports: diarrhea. abdominal pain. All Other Systems: Reviewed and Negative Objective Vital Signs and I&Os Vital Signs Date Time Temp Pulse Resp B/P Pulse O2 O2 Flow FiO2 Ox Delivery Rate 01/13 1002 69 130/70 01/13 0820 97.7 69 18 130/70 100 Nasal 2.0L Cannula 01/13 0215 97.6 69 20 116/72 100 Nasal 2.0L Cannula 01/13 0000 Nasal 2.0L Cannula 01/12 2154 84 124/80 01/12 1600 Nasal 2.0L Cannula 01/12 1600 97.4 69 20 110/58 100 Nasal 1.5L Cannula Intake & Output 01/13 1600 01/13 0800 01/13 0000 01/12 1600 01/12 0800 01/12 0000 Intake Total 460 970 Output Total 300 2000 500 300 400 Balance -300 -1540 470 -300 -400 Intake, IV 10 250 Intake, Oral 450 720 Number 1 2 Bowel Movements Output, Urine 300 2000 500 300 400 Patient 87.543 kg Weight Physical Exam: General Appearance: alert, awake, comfortable Respiratory: chest non-tender, no respiratory distress, quiet respiration, crackles (bases), on 2L NC Cardiovascular: regular rate/rhythm, edema Abdomen: normal bowel sounds, soft, tender in epigastric area Extremities: edematous with hyperpigmentation and erythema Neurologic/Psychiatric: awake, alert Skin: intact Current Medications: Current Medications Sig/Stefanie Start time Last Medication Dose Route Stop Time Status Admin Amoxicillin/ 875 MG Q12 01/13 1009 AC Clavulanate Potassium PO Apixaban 5 MG BID 01/09 2200 AC 01/13 PO 1001 Atorvastatin Calcium 10 MG 1700 01/10 1700 AC 01/12 PO 1733 Azithromycin 500 MG DAILY 01/10 1000 DC 01/13 Sodium Chloride 250 ML IV 1000 Carvedilol 12.5 MG BID 01/10 1000 AC 01/13 PO 1002 Ceftriaxone Sodium 1,000 MG DAILY 01/10 1000 DC 01/13 IV 1000 Furosemide 20 MG 7:30 AM, & 4:30 PM 01/13 1630 CAN PO Furosemide 20 MG 7:30 AM, & 4:30 PM 01/13 1630 AC PO Insulin Aspart 0 AT BEDTIME 01/10 2200 AC SC Insulin Aspart 0 TIDAC 01/10 1700 AC 01/10 SC 1651 Levothyroxine Sodium 44 MCG DAILY 01/10 1000 AC 01/13 IV 1001 Magnesium Chloride 64 MG BID 01/12 1556 AC 01/13 PO 1001 Nystatin 1 YONG BID 01/12 1517 AC 01/13 TOP 1001 Omeprazole 40 MG DAILY AC 01/13 1024 AC PO Pantoprazole Sodium 40 MG DAILY 01/10 1000 DC 01/13 IV 1000 Results Last 24 Hours of Lab Results: Laboratory Tests 01/13 0700 Chemistry Sodium (137 - 145 mmol/L) 137 Potassium (3.5 - 5.1 mmol/L) 4.5 Chloride (98 - 107 mmol/L) 98 Carbon Dioxide (22 - 30 mmol/L) 36 H Anion Gap (5 - 16) 3 L BUN (7 - 17 mg/dL) 34 H Creatinine (0.5 - 1.0 mg/dL) 1.0 Estimated GFR (>60 ml/min) 53 L BUN/Creatinine Ratio (7 - 25 %) 34.0 H Hematology CBC w Diff MAN DIFF ORDERED WBC (4.8 - 10.8 /CUMM) 6.0 RBC (4.20 - 5.40 /CUMM) 3.64 L Hgb (12.0 - 16.0 G/DL) 11.3 L Hct (37 - 47 %) 34.8 L MCV (81.0 - 99.0 FL) 95.6 MCH (27.0 - 31.0 PG) 31.1 H RDW (11.5 - 14.5 %) 17.1 H Plt Count (130 - 400 /CUMM) 63 L MPV (7.4 - 10.4 FL) 11.7 H Gran % (42.2 - 75.2 %) 77.1 H Lymphocytes % (20.5 - 51.1 %) 10.2 L Monocytes % (1.7 - 9.3 %) 10.4 H Eosinophils % (0 - 5 %) 1.7 Basophils % (0.0 - 2.0 %) 0.6 Absolute Granulocytes (1.4 - 6.5 /CUMM) 4.6 Absolute Lymphocytes (1.2 - 3.4 /CUMM) 0.6 L Absolute Monocytes (0.10 - 0.60 /CUMM) 0.6 Absolute Eosinophils (0.0 - 0.7 /CUMM) 0.1 Absolute Basophils (0.0 - 0.2 /CUMM) 0 Platelet Estimate (ADEQUATE) DECREASED Poikilocytosis 1+ Basophilic Stippling SLIGHT Anisocytosis 1+ Ovalocytes 1+ Betsy Cells 1+ PUBS MCHC (33.0 - 37.0 G/DL) 32.5 L Assessment/Plan Assessment/Recommendations: Ms. Moreno is a 81-year-old female with history of breast cancer status post 5 years of anastrozole and last seen by Dr. Osborne in 02/2015 who presented to the hospital with hypothermia, diffuse weakness, and thrombocytopenia. She had CT scan demonstrating possible pneumonia. She has been started on IV antibiotics with Unasyn and azithromycin. WBC is normal. Platelet count is improving, 63,000 today. She has some abdominal pain today. This is nonspecific. She is doing well otherwise. Recommendations: 1. Monitor CBC 2. Consider abdominal x-ray if pain worsens Please call [phone] with any questions. Problem List: 1. Breast cancer 2. Pneumonia 3. Thrombocytopenia 4. Hypothermia
--- NOTE | 2017-01-13 12:25 | PN- Cardiology ---
Subjective Subjective: Reports some mild abdominal pain this morning now resolved. Feels her breathing is close to baseline. No chest pain or palpitations. Objective Vital Signs and I&Os Vital Signs Date Time Temp Pulse Resp B/P Pulse O2 O2 Flow FiO2 Ox Delivery Rate 01/13 1002 69 130/70 01/13 0820 97.7 69 18 130/70 100 Nasal 2.0L Cannula 01/13 0800 Nasal 2.0L Cannula 01/13 0215 97.6 69 20 116/72 100 Nasal 2.0L Cannula 01/13 0000 Nasal 2.0L Cannula 01/12 2154 84 124/80 01/12 1600 Nasal 2.0L Cannula 01/12 1600 97.4 69 20 110/58 100 Nasal 1.5L Cannula Intake & Output 01/13 1600 01/13 0800 01/13 0000 01/12 1600 01/12 0800 01/12 0000 Intake Total 460 970 Output Total 300 2000 500 300 400 Balance -300 -1540 470 -300 -400 Intake, IV 10 250 Intake, Oral 450 720 Number 1 2 Bowel Movements Output, Urine 300 2000 500 300 400 Patient 193 lb Weight Physical Exam: General: no apparent distress. Alert. Eyes: No obvious scleral icterus. HEENT: No jugular venous distention or abnormal jugular venous pulsations. Cardiovascular: Normal intensity S1/S2. Regular. One out of 6 systolic murmur Respiratory: Coarse breath sounds at the bases Abdomen: Soft, nontender with no guarding or rebound tenderness. Musculoskeletal: No clubbing or cyanosis noted, 2+ lower extremity edema bilaterally Skin: warm Neurologic: No gross focal deficits noted. Current Medications: Current Medications Sig/Stefanie Start time Last Medication Dose Route Stop Time Status Admin Amoxicillin/ 875 MG Q12 01/13 1009 AC Clavulanate Potassium PO Apixaban 5 MG BID 01/09 2200 AC 01/13 PO 1001 Atorvastatin Calcium 10 MG 1700 01/10 1700 AC 01/12 PO 1733 Azithromycin 500 MG DAILY 01/10 1000 DC 01/13 Sodium Chloride 250 ML IV 1000 Carvedilol 12.5 MG BID 01/10 1000 AC 01/13 PO 1002 Ceftriaxone Sodium 1,000 MG DAILY 01/10 1000 DC 01/13 IV 1000 Furosemide 20 MG 7:30 AM, & 4:30 PM 01/13 1630 CAN PO Furosemide 20 MG 7:30 AM, & 4:30 PM 01/13 1630 AC PO Insulin Aspart 0 AT BEDTIME 01/10 2200 AC SC Insulin Aspart 0 TIDAC 01/10 1700 AC 01/10 SC 1651 Levothyroxine Sodium 44 MCG DAILY 01/10 1000 AC 01/13 IV 1001 Magnesium Chloride 64 MG BID 01/12 1556 AC 01/13 PO 1001 Nystatin 1 YONG BID 01/12 1517 AC 01/13 TOP 1001 Omeprazole 40 MG DAILY AC 01/13 1024 AC PO Pantoprazole Sodium 40 MG DAILY 01/10 1000 DC 01/13 IV 1000 Results Last 48 Hrs of Labs/Mics: Laboratory Tests 01/13/17 0700: Anion Gap 3 L, Estimated GFR 53 L, BUN/Creatinine Ratio 34.0 H, CBC w Diff MAN DIFF ORDERED, RBC 3.64 L, MCV 95.6, MCH 31.1 H, RDW 17.1 H, MPV 11.7 H, Gran % 77.1 H, Lymphocytes % 10.2 L, Monocytes % 10.4 H, Eosinophils % 1.7, Basophils % 0.6, Absolute Granulocytes 4.6, Absolute Lymphocytes 0.6 L, Absolute Monocytes 0.6, Absolute Eosinophils 0.1, Absolute Basophils 0, Platelet Estimate DECREASED, Poikilocytosis 1+, Basophilic Stippling SLIGHT, Anisocytosis 1+, Ovalocytes 1+, Addison Cells 1+, PUBS MCHC 32.5 L 01/12/17 0646: Anion Gap 4 L, Estimated GFR 53 L, BUN/Creatinine Ratio 33.0 H, Magnesium 1.8 , Fibrinogen Activity 236, Fibrin Degrad Products <10 ug/ml, D-Dimer 260 H, CBC w Diff NO MAN DIFF REQ, RBC 3.64 L, MCV 94.1, MCH 31.0, RDW 16.2 H, MPV 12.3 H, Gran % 71.3, Lymphocytes % 12.3 L, Monocytes % 14.8 H, Eosinophils % 0.9, Basophils % 0.7, Absolute Granulocytes 3.3, Absolute Lymphocytes 0.6 L, Absolute Monocytes 0.7 H, Absolute Eosinophils 0, Absolute Basophils 0, PUBS MCHC 33.0 Recent Imaging Studies: The patient is no longer on telemetry Assessment/Plan Assessment/Plan 1. Nonischemic cardiomyopathy ejection fraction 35% status post BiV-ICD 2. Chronic systolic heart failure 3. Persistent atrial fibrillation on Eliquis 4. Community-acquired pneumonia currently on antibiotics 5. Acute renal insufficiency, her most recent BUN/creatinine from October 2016 were 18 and 0.75 6. Essential hypertension by history 7. Diabetes 8. 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 Thrombocytopenia 10. Hyponatremia, improved 11. 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 The patient remains hemodynamically stable. She still has lower extremity edema but no evidence of decompensated congestive heart failure at this time. Continue on the anticoagulation given her known atrial fibrillation. Titrate back on patient's outpatient ARB and oral diuretics as outlined by Dr. Cummins yesterday. Antibiotics per the medical team. Santana Mascorro MD [facility] Continue telemetry? Not applicable
[2017-01-13 14:41] VITALS: BP 130/70
== END 2017-01-13 16:45 | DRG 871 ==
LOC: ENRESERVDT → ENRESERVTM → ERH 14:54 → CRI 18:23 → 1NO 18:23 → ERHI 18:23 → ENPENDDIS 18:23 → CRI 21:30 → 1NO 01-11 12:37
PROVIDERS: Internal Medicine; Physician Assistant; Radiology Diagnostic Radiology; Student in an Organized Health Care Education/Training Program; ADMIT Student in an Organized Health Care Education/Training Program
DX: A41.9 Sepsis, unspecified organism (principal); J96.01 Acute respiratory failure with hypoxia; N17.9 Acute kidney failure, unspecified; I50.23 Acute on chronic systolic (congestive) heart failure; D61.818 Other pancytopenia; J18.9 Pneumonia, unspecified organism; I42.9 Cardiomyopathy, unspecified; D69.6 Thrombocytopenia, unspecified; I27.2 Other secondary pulmonary hypertension; I48.2 Chronic atrial fibrillation; I11.0 Hypertensive heart disease with heart failure; E11.65 Type 2 diabetes mellitus with hyperglycemia; E87.5 Hyperkalemia; E87.1 Hypo-osmolality and hyponatremia; I08.1 Rheumatic disorders of both mitral and tricuspid valves; Z68.41 Body mass index [BMI] 40.0-44.9, adult; E83.42 Hypomagnesemia; E66.01 Morbid (severe) obesity due to excess calories; Z79.01 Long term (current) use of anticoagulants; E78.5 Hyperlipidemia, unspecified; G47.33 Obstructive sleep apnea (adult) (pediatric); Z86.711 Personal history of pulmonary embolism; Z85.3 Personal history of malignant neoplasm of breast; Z95.810 Presence of automatic (implantable) cardiac defibrillator; Z86.718 Personal history of other venous thrombosis and embolism; R68.0 Hypothermia, not associated with low environmental temperature; Z85.42 Personal history of malignant neoplasm of other parts of uterus; R65.20 Severe sepsis without septic shock; Z79.84 Long term (current) use of oral hypoglycemic drugs; I87.2 Venous insufficiency (chronic) (peripheral); K57.30 Diverticulosis of large intestine without perforation or abscess without bleeding
CPT/HCPCS: 1NP; 84133; 84300; CCU; 36415; 74177; 74230; 81003; 82436; 82570; 87040; 87045; 87070; 87086; 87449; 87450; 87804; 87804-59; 93005; 93010; 93306; 96374; 97110-GO; 97162-GP; 97530-GO; 99291; J0456; J0696; J1940; J7040